=== PATIENT | female | born 1970 | race Caucasian/White ===

== ENCOUNTER → 2017-07-05 11:27 | Outpatient (CLI) | payer BC, SELFPAY | PROVIDERS: Visit Provider Obstetrics & Gynecology | DX: N76.0 Acute vaginitis (principal); R30.0 Dysuria | CPT/HCPCS: 87077; 87086; 87088; 87186 ==

== ENCOUNTER → 2017-08-12 10:44 | Outpatient (CLI) | payer BC, SELFPAY ==
--- NOTE | 2017-08-12 11:16 | BI_ITS ---
MAMMOGRAPHY - BILATERAL SCREENING REASON FOR EXAM: Female, 46 years old. Routine annual screening examination. PERTINENT HISTORY: Non-contributory. TECHNIQUE: Digital bilateral breast tony (3D mammographic acquisition) in the CC and MLO projections. 2-D mediolateral oblique (MLO) and craniocaudad (CC) views of both breasts were obtained. CAD: Full Field Digital Mammography with Computer Added Detection was performed. COMPARISON: Comparison is made with prior study dated August 10, 2016 May 27, 2015. FINDINGS: Breast Composition: The breasts are extremely dense, which lowers the sensitivity of mammography. There are no dominant masses or suspicious calcifications. No other significant abnormalities are identified. There has been no significant change since the prior study. BI/SCREENING MAMM (CAD), BILAT IMPRESSION: Stable bilateral screening mammogram. Yearly follow-up mammogram recommended. (A) ASSESSMENT CATEGORY: BIRADS Category 1: Negative. A letter regarding these results will be sent to the patient by the facility within 30 days. Approximately 10% of breast cancers are not detected by mammography. A normal mammogram should not delay biopsy of a clinically suspicious abnormality. [id number] Electronically Signed: Hao Marti MD at 14:26 EDT Tel [phone], Service support ,
[2017-08-14 10:48] LABS: HPV Reflexed? NOT INDICATED
== END ==
LOC: WOBLAB 10:45 → LABSPEC 10:47
PROVIDERS: Family Provider Family Medicine; PCP Family Medicine; Visit Provider Obstetrics & Gynecology
DX: Z12.31 Encounter for screening mammogram for malignant neoplasm of breast (principal); Z12.4 Encounter for screening for malignant neoplasm of cervix
CPT/HCPCS: 77063; 77067; 88175; G0145

== ENCOUNTER 2017-09-18 08:00 | Outpatient (RCR) | payer BC, SELFPAY ==
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
--- NOTE | 2017-05-23 10:14 | HP.OTREVAL ---
Yossi Ramirez MD, It has been my pleasure to treat HARSH ADAME over the last 6 visits for disp. fx of prox phalanx of left little finger/ dislocation of left MF. Please see the progress note below for an update on the occupational therapy plan of care! Subjective: pt states she is doing ok- still very painful- pt states she does get nauseaded with moving her finger or touching the scar. Objective/Function: left MF. MCP +15/60. PIP-20 /75. DIP 0/45. Left LF. MCP 0/60. PIP 0/70. DIP 0/. left aircraft line assembler 15#. pt demo with limited functional composite fist and decreased left aircraft line assembler strength- pt also demo rotation of left LF radially positioning tip under RF with active ROM- pt would benefit from cont. OTR//L, CHT services for pt to reach her max rehab Plan Frequency: 2x /Week Duration: 2 Months Plan: pt to cont with therapy 1-2x weeks 8 weeks to progress pt to full ROM and return of a functional aircraft line assembler strength for BADLS and IADLS Goals - Goals Goal:: in 12 weeks pt will demo a left aircraft line assembler strength of 35# or greater to increase her ind with BADLs and IADLS by D/C Goal:: once cleared by pt will demo increase in functional digit ROM to form a composite first to manipulate coins ind. type and performance of BADLS and IADLS by D/C Goal:: pt will report pain no greater than 2/10 with us of left hand for BADLS and IADLS by d/c Goal:: Pt will demo the ability to move fingers freely over computer keys with no more than 2 mistakes and no pain by d/c Goal:: pt will demo a reduction in left digit edema by .5 by d/c Goal:: pt will demo understanding of custom orthosis use and care by end of 1st session. pt will demo understanding to return for orthosis adj to increase comfort and wear of orthosis by end of 1st session. Anticipated Interventions Anticipated Interventions: A/AAROM/PROM, Strengthening, Edema Control, Triggerpoint Release, Desensitization, Wound Care, Modalities, Orthoses, Joint Protection/Energy Conservation Please do not hesitate to contact me at [phone] by phone or if you have questions or concerns regarding this new plan of care! Sincerely, Estrella Red, OTR/L, CHT
--- NOTE | 2017-07-05 09:47 | HP.OTREVAL ---
Yossi Ramirez MD, It has been my pleasure to treat HARHS ADAME over the last 6 visits for disp. fx of prox phalanx of left little finger/ dislocation of left MF. Please see the progress note below for an update on the occupational therapy plan of care! Subjective: pt reports she is has had a decrease in her pain and she is using her left arm more for BADLS- pt still has concerns with strength Objective/Function: Pt has made gains with her ROM and her pain has decreased to increase functional use. Pt measurments are. : Left MF PIP ROM prior to -. Left MF PIP ROM - following therapy- left ophthalmology assistant strength 20# right ophthalmology assistant is 60#. Now that pt has progressed with ROM and her pain has decreased with functional tasks therapy would like to initiate more agressive strengthening for pt to return to PLOF. Plan Frequency: 2x /Week Duration: 6 Weeks Plan: OT rec'd 2x week for 6 weeks Goals - Goals Goal:: in 12 weeks pt will demo a left ophthalmology assistant strength of 35# or greater to increase her ind with BADLs and IADLS by D/C Goal:: once cleared by pt will demo increase in functional digit ROM to form a composite first to manipulate coins ind. type and performance of BADLS and IADLS by D/C Goal:: pt will report pain no greater than 2/10 with us of left hand for BADLS and IADLS by d/c Goal:: Pt will demo the ability to move fingers freely over computer keys with no more than 2 mistakes and no pain by d/c Goal:: pt will demo a reduction in left digit edema by .5 by d/c Goal:: pt will demo understanding of custom orthosis use and care by end of 1st session. pt will demo understanding to return for orthosis adj to increase comfort and wear of orthosis by end of 1st session. Anticipated Interventions Anticipated Interventions: A/AAROM/PROM, Strengthening, Edema Control, Triggerpoint Release, Desensitization, Wound Care, Modalities, Orthoses, Joint Protection/Energy Conservation Please do not hesitate to contact me at [phone] by phone or if you have questions or concerns regarding this new plan of care! Sincerely, Estrella Red, OTR/L, CHT
--- NOTE | 2017-08-06 12:51 | OTREVAL_ITS ---
Yossi Ramirez MD, It has been my pleasure to treat HARSH ADAME over the last 5 visits for disp. fx of prox phalanx of left little finger/ dislocation of left MF. Please see the progress note below for an update on the occupational therapy plan of care! Subjective: pt states she is doing better but still would like to see more composite fist- states she has a very difficult time with manipulating coins- and holding objects in her hand. She reports ind. with her HEP Objective/Function: MF PIP -5/80. DIP 0/55. RF PIP 0/85. LF PIP 0/80. pt contines to lack ROM comparied to her uninjured digits-. pt continues to make gains with her ROM- she made a significant improvement with her MF PIP extension - but continues to struggle with composite fist for BADLS- pt would benefit from cont OT services to ensure pts porgess with her ROM and strength Plan Frequency: 1x/Week Duration: 6 Weeks Plan: cont with increase functional ROM Goals - Goals Goal:: in 12 weeks pt will demo a left business communications instructor strength of 35# or greater to increase her ind with BADLs and IADLS by D/C Goal:: once cleared by pt will demo increase in functional digit ROM to form a composite first to manipulate coins ind. type and performance of BADLS and IADLS by D/C Goal:: pt will report pain no greater than 2/10 with us of left hand for BADLS and IADLS by d/c Goal:: Pt will demo the ability to move fingers freely over computer keys with no more than 2 mistakes and no pain by d/c Goal:: pt will demo a reduction in left digit edema by .5 by d/c Goal:: pt will demo understanding of custom orthosis use and care by end of 1st session. pt will demo understanding to return for orthosis adj to increase comfort and wear of orthosis by end of 1st session. Anticipated Interventions Anticipated Interventions: A/AAROM/PROM, Strengthening, Edema Control, Triggerpoint Release, Desensitization, Wound Care, Modalities, Orthoses, Joint Protection/Energy Conservation Please do not hesitate to contact me at [phone] by phone or Fax: if you have questions or concerns regarding this new plan of care! Sincerely, Estrella Red, OTR/L, CHT
--- NOTE | 2017-10-21 08:34 | HP.OT.NRP ---
HP - Discharge Summary - Patient Information HARSH ADAME was seen in my office for initial evaluation on 04/15/17. The following Plan of Care was established for this patient: Initial Frequency: 1x/Week Initial Duration: 6 Weeks Plan: cont with increase functional ROM one more visit - Anticipated Interventions Anticipated Interventions: A/AAROM/PROM, Strengthening, Edema Control, Triggerpoint Release, Desensitization, Wound Care, Modalities, Orthoses, Joint Protection/Energy Conservation This patient was last seen in our office 09/18/17. Pertinent comments regarding their Occupational therapy will appear below: Pt was improving with her ROM and strength- but contined to struggle with end range composite fist- Due to insurance pt is d/c with HEP to cont working with pain free composite fist, PRE and returning pt to PLOF. Pt to return to DR. if no improvements are made. At this point I will be discontinuing this patient from occupational therapy. I would be happy to see this patient again in the future if found appropriate by the physician. Thank you! Estrella Red, OTR/L, CHT
== END 2017-09-18 19:00 | disposition home or self-care (01) ==
LOC: OT 08:00
PROVIDERS: Family Provider Family Medicine; PCP Family Medicine; Visit Provider Specialist
DX: S62.617D Displaced fracture of proximal phalanx of left little finger, subsequent encounter for fracture with routine healing (principal)
CPT/HCPCS: 97110; 97140; 97166; 97530; 97760; 97763

== ENCOUNTER → 2017-11-27 13:41 | Outpatient (CLI) | payer BC, SELFPAY ==
--- NOTE | 2017-11-27 14:05 | SP.MBSS_ITS ---
PRIMARY / SECONDARY DIAGNOSIS: dysphagia (R13.10) REFERRING PHYSICIAN: Dr. Michele Arboleda MD CURRENT DIET: regular textures, thin liquids DENTITION: WFL MENTAL STATUS: WNL RESPIRATORY STATUS: O2 via room air PREVIOUS MODIFIED BARIUM SWALLOW STUDY: none REASON FOR REFERRAL: Patient is a 47 year old female referred for a modified barium swallow (MBS) study to objectively assess the Patients oropharyngeal swallow function under fluoroscopy secondary to the diagnosis of multiple sclerosis. Patient reports diagnosis of multiple sclerosis in 2010, with the Patient recently noting intermittent coughing episodes during PO intake, with a reported exacerbation following her most recent round of Botox injections (3 month intervals) to the right lower extremity. Patient reports recent workup via special forces officer 3 weeks prior was overall unremarkable, was subsequently placed on proton pump inhibitors for suspected gastroesophageal reflux, though reports no therapeutic effect to date. Patient reports intermittent sensations of bolus stasis well above the laryngeal notch, reports dysphagia for both solids and liquids, denies presence of sialorrhea, no change in appetite, no unintentional weight loss, no recent aspiration related pulmonary complications. 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 Upper GI series scheduled for 12/06/2017. MEDICAL HISTORY: Multiple sclerosis, status post sinus surgery / right maxillary sinus stent. STUDY FINDINGS: Patient participated in a Modified Barium Swallow (MBS) study on 11/27/2017. Dr. Marti was the radiologist present for this evaluation. This study was recorded in the lateral view and images were sent to PACs for storage. The following consistencies were presented to this patient for analysis of oropharyngeal swallow function: thin liquids, pudding, and a regular textured, Kelley Doone cookie. Results of the MBS are as follows: PENETRATION / ASPIRATION SCALE (FORTE): 1 = does not enter airway 2 = enters airway/above vocal folds/ejected 3 = enters airway/above vocal folds/not ejected 4 = enters airway/contacts vocal folds/ejected 5 = enters airway/contacts vocal folds/not ejected 6 = enters airway/below vocal folds/ejected 7 = enters airway/below vocal folds/not ejected despite effort 8 = enters airway/below vocal folds/no effort VIDEOFLOROSCOPIC SCALE SCORE (FORTE): Grade I = aspiration of material that has penetrated into the laryngeal vestibule, intact cough reflex Grade II = aspiration < 10 % of the bolus, intact cough reflex Grade III = aspiration of < 10 % of the bolus, reduced cough reflex or aspiration of > 10 % of the bolus, intact cough reflex Grade IV = aspiration of > 10 % of the bolus, reduced cough reflex PENETRATION / ASPIRATION SCALE (SCORE) WITH VIDEOFLOROSCOPIC SCALE SCORE: Thin liquid - 5 mL tsp.: 1 Thin liquids via cup (single sip): 1 Thin liquids via cup (single sip): 1 Thin liquids via cup (single sip): 1 Thin liquids via cup (sequential swallows): 1 Thin liquids via straw (single sip): 1 Thin liquids via straw (single sip): 1 Thin liquids via straw (single sip): 1 Pudding via spoon: 1 Regular textured cookie: 1 Thin liquids via straw (single sip): 1 Thin liquids via straw (single sip): 1 IMPRESSION: DIAGNOSIS: mild oropharyngeal dysphagia (R13.12) ORAL PHASE CHARACTERIZED BY: LABIAL SEAL: no labial escape TONGUE CONTROL DURING BOLUS MANIPULATION: posterior escape of greater than half of bolus BOLUS PREPARATION / MASTICATION: timely and efficient chewing and mashing BOLUS TRANSPORT / LINGUAL MOTION: brisk tongue motion ORAL RESIDUE: trace residue lining oral structures PHARYNGEAL PHASE CHARACTERIZED BY: INITIATION OF PHARYNGEAL SWALLOW: bolus head in pyriforms at first hyoid excursion, with intermittent 1 second pharyngeal swallow onset delay SOFT PALATE ELEVATION: no bolus between soft palate and pharyngeal wall LARYNGEAL ELEVATION: complete superior movement of thyroid cartilage with complete approximation of arytenoids cartilage to epiglottic petiole ANTERIOR HYOID EXCURSION: complete anterior movement EPIGLOTTIC MOVEMENT: complete epiglottic inversion LARYNGEAL VESTIBULE CLOSURE AT HEIGHT OF SWALLOW: complete laryngeal vestibule closure with no air/contrast in laryngeal vestibule PHARYNGEAL STRIPPING WAVE: pharyngeal stripping wave present / complete PHARYNGOESOPHAGEAL SEGMENT OPENING: complete distension and complete duration with no obstruction of flow TONGUE BASE RETRACTION: trace column of contrast between tongue base and posterior pharyngeal wall PHARYNGEAL RESIDUE: intermittent small collection of residue within or on pharyngeal structures ESOPHAGEAL PHASE CHARACTERIZED BY: ESOPHAGEAL BOLUS CLEARANCE IN THE UPRIGHT POSITION: could not view DIET TEXTURE RECOMMENDATIONS: Will recommend a regular textured, thin liquid diet. COMPENSATORY STRATEGIES RECOMMENDED: Reduced bolus volume, seated upright at 90 degrees during PO intake, remain upright for 30-60 minutes post meal (GERD precaution) INTERPRETATION OF RESULTS: Patient presents with mild oropharyngeal dysphagia (R13.12) secondary to the diagnosis of multiple sclerosis. Oral phase marked by intermittent posterior bolus loss, though it is difficult to completely discern between a pharyngeal phase swallow onset delay (more likely) vs. premature spillage. Pharyngeal phase marked by impaired pharyngeal swallow onset timing with mild onset delay ( approximately 1 second in duration) resulting in suboptimal bolus location upon swallow onset; sufficient closure of the airway during deglutition, with noted premature elevation; sufficient pharyngeal motility; sufficient soft palate elevation. Reported sensation of bolus retention above the pharyngeal notch may be attributed to mild delay in pharyngeal swallow onset; no direct impact on swallow integrity, though the Patient is at higher risk of aspiration with increase in pharyngeal swallow dwell time. No aspiration appreciated throughout trials, unable to definitively rule out silent aspiration (not suspected). RECOMMENDATIONS: Would consider a repeat modified barium swallow study if any changes in the swallow pattern are suspected, or at regular intervals to further elucidate any changes in the oropharyngeal swallow function as the disease progresses. Extensive Patient education and counseling provided following the completion of the swallow study spanning a variety of topics in regards to multiple sclerosis , to include not only dysphagia, but also potential cognitive / communication changes that may accompany the diagnosis. The Patient reports rather significant and understandable anxiety in regards to the diagnosis and anticipated progression, and reports having read multiple articles covering cognitive, communication, and swallowing changes that may accompany the disease. The Patient reports intermittent paraphasias that, upon description, are most likely neologistic in nature, and occur in conjunction with fatigue and more busy environments. Suspect this is associated with attention vs. language functioning, though further assessment at the outpatient level either via a licensed speech-language pathologist or a licensed clinical neuropsychologist would likely be of benefit. Patient may further benefit from 1 -2 follow up skilled speech-language intervention targeting continued diet texture management; training and implementation of recommended compensatory strategies; and further Patient and caregiver education regarding dysphagia associated with multiple sclerosis. ADDITIONAL COMMENTS/RECOMMENDATIONS: Results and recommendations were discussed with the Patient immediately following MBS completion, with the Patient verbalizing understanding and agreement with all recommendations and education provided. IMAGE COUNT: [id number] G-CODES: SWALLOWING [id number] Current Status: CI SWALLOWING G8997 Goal Status: CH SWALLOWING G8998 Discharge Status: CI Bao Hull M.A., CCC-BPM SOLUTION ARCHITECT [facility] Speech-Language Pathology Department [email or web address]
== END ==
PROVIDERS: Family Provider Family Medicine; PCP Family Medicine; Visit Provider Otolaryngology
DX: R13.10 Dysphagia, unspecified (principal)
CPT/HCPCS: 74230; 92611

== ENCOUNTER → 2017-12-06 09:12 | Outpatient (CLI) | payer BC, SELFPAY ==
--- NOTE | 2017-12-06 09:14 | RAD_ITS ---
STUDY: X-RAY - ESOPHAGUS (BARIUM SWALLOW) WITH FLUOROSCOPY REASON FOR EXAM: Female, 47 years old. Dysphasia. TECHNIQUE: 38 view(s) of the esophagus were obtained following swallowing of barium. FLUOROSCOPY TIME (if supplied): (0:42) minutes/seconds COMPARISON: None. FINDINGS: There is no demonstrated esophageal foreign body. There is no demonstrated stricture or mucosal abnormality. Normal gastroesophageal junction, without a demonstrated hiatal hernia. The patient ingested a 12 mm tablet of barium without any difficulty. Normal visualized aortic arch and descending thoracic aorta. Normal visualized pulmonary parenchyma. Normal visualized osseous structures of the thorax. RAD/Esophagus Only IMPRESSION: Normal plain film x-ray examination (barium swallow) of the esophagus. Electronically Signed: Hao Marti MD at 8:27 EDT Tel [phone], Service support ,
== END ==
PROVIDERS: Family Provider Family Medicine; PCP Family Medicine; Visit Provider Otolaryngology
DX: R13.10 Dysphagia, unspecified (principal)
CPT/HCPCS: 74220

== ENCOUNTER → 2018-02-15 11:09 | Outpatient (CLI) | payer BC, SELFPAY | PROVIDERS: Visit Provider Otolaryngology | DX: J02.9 Acute pharyngitis, unspecified (principal) | CPT/HCPCS: 87070; 87077; 87186 ==

== ENCOUNTER → 2018-02-26 18:20 | Outpatient (CLI) | payer BC, SELFPAY ==
[2018-02-26 16:21] VITALS: BMI 24.3
[2018-02-26 18:22] LABS: Bacteria 0 SEEN /hpf (None Seen); White Blood Cells 0 SEEN /hpf (0-5)
[2018-02-26 18:37] LABS: Color, Urine Yellow (Yellow); Glucose, Dipstick Normal (Normal); Ketone-Dipstick Negative (Negative); Leukocyte Esterase-Dipstick 25 /ul (Negative); Nitrite-Dipstick Negative (Negative); Occult Blood-Urine 25 /ul (Negative); Protein-Dipstick Negative (Negative); Urine Bilirubin Dipstick Negative (Negative); Urine Clarity Clear (Clear); Urine Urobilinogen 1 mg/dl (Normal)
[2018-02-26 18:42] LABS: Mucous, Urine 1+ /hpf (<or=2+); Red Blood Cells-Urine 0-5 SEEN /hpf (0-5); Squamous Epithelial Cells - UA 0-5 SEEN /hpf (5-10)
== END ==
PROVIDERS: Family Provider Family Medicine; PCP Family Medicine; Referring Provider Nurse Practitioner Family; Visit Provider Nurse Practitioner Family
DX: R30.0 Dysuria (principal)
CPT/HCPCS: 81001; 87086; 87088

== ENCOUNTER → 2018-08-05 | Outpatient (CLI) | payer MEDICAID, SELFPAY ==
[2018-06-18 15:21] VITALS: BMI 24.3
--- NOTE | 2018-08-05 09:47 | BI_ITS ---
MAMMOGRAPHY - BILATERAL SCREENING REASON FOR EXAM: Female, 47 years old. Routine annual screening examination. PERTINENT HISTORY: Non-contributory. TECHNIQUE: Digital bilateral breast tony (3D mammographic acquisition) in the CC and MLO projections. 2-D mediolateral oblique (MLO) and craniocaudad (CC) views of both breasts were obtained. CAD: Full Field Digital Mammography with Computer Added Detection was performed. COMPARISON: Comparison is made with prior study dated August 12, 2017 and August 10, 2016. FINDINGS: Breast Composition: The breasts are extremely dense, which lowers the sensitivity of mammography. There are no dominant masses or suspicious calcifications. Stable small bilateral axillary lymph nodes. No other significant abnormalities are identified. There has been no significant change since the prior study. BI/SCREENING MAMM (CAD), BILAT IMPRESSION: Stable bilateral screening mammogram. Yearly follow-up mammogram recommended. (A) ASSESSMENT CATEGORY: BIRADS Category 2: Benign. A letter regarding these results will be sent to the patient by the facility within 30 days. Approximately 10% of breast cancers are not detected by mammography. A normal mammogram should not delay biopsy of a clinically suspicious abnormality. [id number] Electronically Signed: Hao Marti, at 11:27 EDT , Service support ,
== END | disposition home or self-care (01) ==
LOC: OPBI 09:44
PROVIDERS: Family Provider Family Medicine; PCP Family Medicine; Referring Provider Obstetrics & Gynecology; Visit Provider Obstetrics & Gynecology
DX: Z12.31 Encounter for screening mammogram for malignant neoplasm of breast (principal)
CPT/HCPCS: 77063; 77067

== ENCOUNTER → 2018-08-15 | Outpatient (CLI) | payer MEDICAID, SELFPAY ==
[2018-06-18 15:21] VITALS: BMI 24.3
[2018-08-21 17:16] LABS: HPV Reflexed? NOT INDICATED
== END | disposition home or self-care (01) ==
LOC: LABSPEC 14:11
PROVIDERS: Visit Provider Obstetrics & Gynecology
DX: Z12.4 Encounter for screening for malignant neoplasm of cervix (principal)
CPT/HCPCS: 88175; G0145

== ENCOUNTER 2018-12-02 13:37 | Outpatient (RCR) | payer MEDICAID, SELFPAY ==
[2018-11-18 09:36] VITALS: BMI 24.3
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
--- NOTE | 2019-01-13 11:13 | HP.PTDCNRP_ITS ---
HP - Discharge Summary (1) - Patient Information HARSH ADAME was seen in my office for initial evaluation on 12/02/18. The following Plan of Care was established for this patient: Initial Frequency: 1-2x /Week Initial Duration: 4 Weeks - Anticipated Interventions Patient/Client Instruction: Educate patient on: Condition, Plan of Care For the Purpose of:: To decrease pain, To increase ROM, To improve muscle per formance and motor function, To improve ability to perform ADL's, To increase tolerance to activity/condition/position, To improve ability of physical actions for home/community/work/leisure, To improve gait and locomotor functions, To decrease soft tissue restriction, To increase flexibility/ROM, To reduce risk of recurrence Therapeutic Exercise to Include: Strength training, Postural training, Flexibilty training, Scapular Strength/Stabilization For the Purpose of:: To decrease pain, To increase ROM, To improve muscle performance and motor function, To improve ability to perform ADL's, To increase tolerance to activity/condition/position, To improve ability of physical actions for home/community/work/leisure, To decrease soft tissue restriction, To increase flexibility/ROM This patient was last seen in our office . Pertinent comments regarding their Physical therapy will appear below: Patient seen for PT for Intial Evalution for back pain for HEP. At this point I will be discontinuing this patient from physical therapy. I would be happy to see this patient again in the future if found appropriate by the physician. Thank you! Tello Robertson, PT, Cert MDT, OCS
== END 2018-12-02 19:00 | disposition home or self-care (01) ==
LOC: PT 13:37
PROVIDERS: Family Provider Family Medicine; PCP Family Medicine; Visit Provider Chiropractor
DX: S13.9XXA Sprain of joints and ligaments of unspecified parts of neck, initial encounter (principal); M99.02 Segmental and somatic dysfunction of thoracic region
CPT/HCPCS: 97110; 97162

== ENCOUNTER → 2019-01-21 14:00 | Outpatient (CLI) | payer MEDICAID, SELFPAY ==
[2019-01-21 14:02] VITALS: BMI 26.3
[2019-01-22 11:32] LABS: Mucous, Urine 0 SEEN /hpf (<or=2+); Red Blood Cells-Urine 0 SEEN /hpf (0-5); White Blood Cells 0 SEEN /hpf (0-5)
[2019-01-22 12:10] LABS: Color, Urine Yellow (Yellow); Glucose, Dipstick Normal (Normal); Ketone-Dipstick Negative (Negative); Leukocyte Esterase-Dipstick Negative /ul (Negative); Nitrite-Dipstick Negative (Negative); Occult Blood-Urine 50 /ul (Negative); Protein-Dipstick Negative (Negative); Urine Bilirubin Dipstick Negative (Negative); Urine Clarity Sl. Cloudy (Clear); Urine Urobilinogen Normal (Normal)
[2019-01-22 12:15] LABS: Bacteria RARE /hpf (None Seen); Squamous Epithelial Cells - UA 0-5 SEEN /hpf (5-10)
== END ==
PROVIDERS: Family Provider Family Medicine; PCP Family Medicine; Visit Provider Nurse Practitioner Family
DX: M54.5 Low back pain (principal)
CPT/HCPCS: 81001; 87086

== ENCOUNTER → 2019-03-10 09:30 | Outpatient (CLI) | payer MEDICAID, SELFPAY ==
[2019-03-10 09:12] VITALS: BMI 26.3
[2019-03-10 13:12] LABS: HIV - WCH Non-Reactive (Nonreactive)
[2019-03-10 15:17] LABS: Chlamydia Trachomatis by PCR Negative (Negative); Neisserai gonorrhoeae by PCR Negative (Negative); Probe Check PASS; Sample Adequacy Control PASS; Specimen Processing Control PASS
== END ==
PROVIDERS: Family Provider Family Medicine; PCP Family Medicine; Visit Provider Family Medicine
DX: Z20.2 Contact with and (suspected) exposure to infections with a predominantly sexual mode of transmission (principal)
CPT/HCPCS: 36415; 86703; 87491; 87591

== ENCOUNTER → 2019-05-28 | Outpatient (CLI) | payer MEDICAID, SELFPAY ==
[2019-03-10 09:12] VITALS: BMI 26.3
== END | disposition home or self-care (01) ==
LOC: LABSPEC 15:42
PROVIDERS: PCP Family Medicine; Referring Provider Otolaryngology; Visit Provider Otolaryngology
DX: J32.9 Chronic sinusitis, unspecified (principal)
CPT/HCPCS: 87070; 87205

== ENCOUNTER → 2019-08-10 10:09 | Outpatient (CLI) | payer MEDICAID, SELFPAY ==
[2019-03-10 09:12] VITALS: BMI 26.3
--- NOTE | 2019-08-10 10:10 | BI_ITS ---
MAMMOGRAPHY - BILATERAL SCREENING REASON FOR EXAM: Female, 48 years old. Routine annual screening examination. PERTINENT HISTORY: TECHNIQUE: Digital bilateral breast anca (3D mammographic acquisition) in the CC and MLO projections. 2-D mediolateral oblique (MLO) and craniocaudad (CC) views of both breasts were obtained. CAD: Full Field Digital Mammography with Computer Added Detection was performed. COMPARISON: None. FINDINGS: Breast Composition: The breasts are extremely dense, which lowers the sensitivity of mammography. There are no dominant masses or suspicious calcifications. No other significant abnormalities are identified. BI/SCREEN MAMM (CAD) W/ANAC BILAT IMPRESSION: Stable bilateral screening mammogram. Yearly follow-up mammogram recommended. (A) ASSESSMENT CATEGORY: BIRADS Category 2: Benign. A letter regarding these results will be sent to the patient by the facility within 30 days. Approximately 10% of breast cancers are not detected by mammography. A normal mammogram should not delay biopsy of a clinically suspicious abnormality. [id number] Electronically Signed: Yany Becerra, at 10:43 EDT Tel , Service support ,
== END ==
PROVIDERS: Family Provider Family Medicine; PCP Family Medicine; Referring Provider Family Medicine; Visit Provider Family Medicine
DX: Z12.31 Encounter for screening mammogram for malignant neoplasm of breast (principal)
CPT/HCPCS: 77063; 77067

== ENCOUNTER → 2019-08-18 | Outpatient (CLI) | payer MEDICAID, SELFPAY ==
[2019-03-10 09:12] VITALS: BMI 26.3
[2019-08-20 11:17] LABS: HPV APTIMA, High Risk Negative (Negative)
== END | disposition home or self-care (01) ==
LOC: LABSPEC 12:48
PROVIDERS: PCP Family Medicine; Visit Provider Obstetrics & Gynecology
DX: Z12.4 Encounter for screening for malignant neoplasm of cervix (principal)
CPT/HCPCS: 87624; 88175; G0145

== ENCOUNTER → 2019-09-16 | Outpatient (CLI) | payer MEDICAID, SELFPAY ==
[2019-03-10 09:12] VITALS: BMI 26.3
--- NOTE | 2019-09-16 | EMB_PTH ---
PATIENT: HARSH ADAME LOC: [facility] U#:[id number] AGE/SX: 48/F ROOM: RE09/16/[address]: Dr. Nevin Cornell MD : 1970 BED: DIS: 09/16/2019 SPEC #: [id number] RECD: 09/16/19 13:32 STATUS: SHWETA RESkip #: [id number] XAVIER: 09/16/19 00:[address]: Nevin Campos DEPT: SURGICAL PATHOLOGY RECD BY: Dimitri Rod ENTERED: 09/17/19 07:51 SP TYPE: ENDOM BX/C KATINA DR: Dr. Clayton Omalley, DO Tissues: Endometrium, NOS Procedures: Surgery Specimen Level IV HEADER OPERATION: Endometrial biopsy PRE-OP DIAGNOSIS: Irregular bleeding TISSUE SUBMITTED: Endometrial biopsy MICROSCOPIC DIAGNOSIS Endometrium, biopsy: Weakly proliferative, minimally disordered endometrium. Consistent with exogenous hormonal effect. AM:arnaud 09/18/19 MICROSCOPIC DESCRIPTION Slides are reviewed. GROSS DESCRIPTION Received in fixative is one container labeled with the patient's name and designated EMB. The specimen consists of multiple irregular fragments of jackson soft tissue that in aggregate measure 2.5 x 1 x 0.1 cm. The specimen is totally submitted in one cassette. / SJ:arnaud 09/17/19 TC:5 CPT: 36115
== END | disposition home or self-care (01) ==
LOC: LABSPEC 13:49
PROVIDERS: PCP Family Medicine; Referring Provider Obstetrics & Gynecology; Visit Provider Obstetrics & Gynecology
DX: N92.6 Irregular menstruation, unspecified (principal)
CPT/HCPCS: 88305

== ENCOUNTER → 2020-02-27 | Outpatient (CLI) | payer MEDICAID, SELFPAY ==
[2019-03-10 09:12] VITALS: BMI 26.3
== END | disposition home or self-care (01) ==
LOC: LABSPEC 12:00
PROVIDERS: PCP Family Medicine; Visit Provider Otolaryngology
DX: J32.9 Chronic sinusitis, unspecified (principal)
CPT/HCPCS: 87070; 87205

== ENCOUNTER → 2020-04-01 | Outpatient (CLI) | payer MEDICAID, SELFPAY | END | disposition home or self-care (01) | LOC: LABSPEC 13:49 | PROVIDERS: PCP Family Medicine; Referring Provider Family Medicine; Visit Provider Family Medicine | DX: Z20.822 Contact with and (suspected) exposure to COVID-19 (principal) | CPT/HCPCS: 87635; U0005; U0003 ==

== ENCOUNTER → 2020-05-06 14:50 | Outpatient (CLI) | payer MEDICAID, SELFPAY ==
--- NOTE | 2020-05-06 14:56 | RAD_ITS ---
STUDY: X-RAY CHEST REASON FOR EXAM: Female, 49 years old. pt states diagnosed with COVID last Saturday, c/o SOB, cough, chest pain TECHNIQUE: Frontal and lateral views of the chest. COMPARISON: None. FINDINGS: The lungs are clear and expanded. There is no demonstrated pleural abnormality. Normal size heart. Normal mediastinum and aminata. Normal visualized pulmonary arteries. Normal visualized aortic arch and descending thoracic aorta. Normal visualized thoracic spine. Normal visualized ribs, clavicles, and shoulders. There is no demonstrated abnormality of the visualized soft tissue structures of the upper abdomen. RAD/Chest PA and Lateral IMPRESSION: Normal x-ray examination of the chest. Electronically Signed: Eric Natarajan MD at 16:50 EST , Service support ,
== END ==
PROVIDERS: PCP Family Medicine; Referring Provider Nurse Practitioner Family; Visit Provider Nurse Practitioner Family
DX: U07.1 COVID-19 (principal); R05 Cough
CPT/HCPCS: 71046

== ENCOUNTER → 2020-07-07 15:53 | Outpatient (CLI) | payer MEDICAID, SELFPAY ==
[2020-07-07 16:41] LABS: Absolute Lymphocyte Count 1.38 X10^3/uL (0.83-4.51); Absolute Neutrophil Count 5.3 X10^3/uL (2.0-7.7); Basophil# 0.06 X10^3/uL; Basophil% 0.8 % (0-1); Eosinophil# 0.26 X10^3/uL; Eosinophils% 3.4 % (0-5); Hematocrit 39.7 % (37-47); Hemoglobin 12.9 g/dL (12.0-15.0); Lymphocyte # 1.38 X10^3/ul (0.83-4.51); Lymphocyte % 18.2 % (19-41); Mean Corp Hgb Conc 32.5 g/dL (32-36); Mean Corpuscular Hgb 30.9 pg (27.0-32.0); Mean Platelet Vol. 9.9 fl (6.2-12.0); Monocyte# 0.54 X10^3/uL; Monocyte% 7.1 % (0-10); NRBC Flagged by Analyzer 0 % (0-5); Neutrophil # 5.33 X10^3/uL (2.7-7.7); Neutrophil % 70.1 % (47-70); Platelet Count 349 K/mm3 (150-450); RBC Distribution Width CV 13.2 % (11.6-14.6); RBC Distribution Width SD 46.5 fl (35.1-43.9); Red Blood Count 4.18 M/mm3 (4.2-5.4); White Blood Count 7.6 K/mm3 (4.4-11.0)
[2020-07-07 16:49] LABS: Erythrocyte Sedimentation Rate < 1 mm/hr (0-30)
[2020-07-07 17:05] LABS: ALB/GLOB Ratio 1.2 RATIO (0.9-2.4); AST(SGOT) 12 U/L (15-37); Alanine Aminotransfer ALT/SGPT 22 U/L (13-56); Albumin, Serum 3.9 g/dL (3.2-5.0); Alkaline Phosphatase 72 U/L (45-117); Anion Gap 2 (5-15); BUN 12 mg/dL (7-18); BUN/Creat Ratio 16.7 RATIO (10-20); Calcium,Total 9.1 mg/dL (8.5-10.1); Chloride 102 mmol/L (98-107); Creatinine, Serum 0.72 mg/dL (0.55-1.02); EST Glomerular Filtration Rate 93 mL/min (>60); Est Glom Filt Rate - Afr Amer 112 mL/min (>60); Globulin 3.3 g/dL (2.2-4.2); Glucose 98 mg/dL (74-106); Potassium 3.8 mmol/L (3.5-5.1); Protein, Total 7.2 g/dL (6.4-8.2); Sodium Level 136 mmol/L (136-145)
== END ==
PROVIDERS: PCP Family Medicine; Referring Provider Physician Assistant; Visit Provider Physician Assistant
DX: R05 Cough (principal); B94.8 Sequelae of other specified infectious and parasitic diseases; R06.02 Shortness of breath; R07.9 Chest pain, unspecified
CPT/HCPCS: 36415; 80053; 85025; 85652

== ENCOUNTER → 2020-11-25 14:55 | Outpatient (CLI) | payer MEDICAID, SELFPAY ==
--- NOTE | 2020-11-25 15:40 | RAD_ITS ---
STUDY: X-RAY CHEST REASON FOR EXAM: Female, 50 years old. chest pain TECHNIQUE: Frontal and lateral views of the chest. COMPARISON: 07/08/2020. FINDINGS: The lungs are clear and expanded. There is no demonstrated pleural abnormality. Normal size heart. Normal mediastinum and aminata. Normal visualized pulmonary arteries. Normal visualized aortic arch and descending thoracic aorta. Normal visualized thoracic spine. Normal visualized ribs, clavicles, and shoulders. There is no demonstrated abnormality of the visualized soft tissue structures of the upper abdomen. RAD/Chest PA and Lateral IMPRESSION: Normal x-ray examination of the chest. Electronically Signed: Eric Natarajan MD at 19:59 EDT , Service support ,
[2020-11-25 16:28] LABS: Absolute Lymphocyte Count 0.86 X10^3/uL (0.83-4.51); Absolute Neutrophil Count 2.7 X10^3/uL (2.0-7.7); Basophil# 0.03 X10^3/uL; Basophil% 0.7 % (0-1); Eosinophil# 0.28 X10^3/uL; Eosinophils% 6.7 % (0-5); Hematocrit 39.2 % (37-47); Hemoglobin 13.1 g/dL (12.0-15.0); Lymphocyte # 0.86 X10^3/ul (0.83-4.51); Lymphocyte % 20.7 % (19-41); Mean Corp Hgb Conc 33.4 g/dL (32-36); Mean Corpuscular Hgb 31.6 pg (27.0-32.0); Mean Corpuscular Volume 94.7 fL (81-99); Mean Platelet Vol. 10.2 fl (6.2-12.0); Monocyte# 0.26 X10^3/uL; Monocyte% 6.3 % (0-10); NRBC Flagged by Analyzer 0 % (0-5); Neutrophil % 65.1 % (47-70); Platelet Count 348 K/mm3 (150-450); RBC Distribution Width CV 13.1 % (11.6-14.6); RBC Distribution Width SD 45.3 fl (35.1-43.9); Red Blood Count 4.14 M/mm3 (4.2-5.4); White Blood Count 4.2 K/mm3 (4.4-11.0)
[2020-11-25 16:33] LABS: Erythrocyte Sedimentation Rate < 1 mm/hr (0-30)
[2020-11-25 16:36] LABS: D-Dimer Quantitative (DVT/PE) 0.37 FEU/ug/m (0.27-0.49)
[2020-11-25 16:48] LABS: ALB/GLOB Ratio 1.1 RATIO (0.9-2.4); AST(SGOT) 12 U/L (15-37); Alanine Aminotransfer ALT/SGPT 21 U/L (13-56); Albumin, Serum 3.6 g/dL (3.2-5.0); Alkaline Phosphatase 60 U/L (45-117); Anion Gap 3 (5-15); BUN 7 mg/dL (7-18); BUN/Creat Ratio 10.8 RATIO (10-20); CRP 5.15 mg/L (0.0-3.0); Calcium,Total 8.5 mg/dL (8.5-10.1); Chloride 107 mmol/L (98-107); Creatinine, Serum 0.65 mg/dL (0.55-1.02); EST Glomerular Filtration Rate 103 mL/min (>60); Est Glom Filt Rate - Afr Amer 125 mL/min (>60); Globulin 3.2 g/dL (2.2-4.2); Glucose 91 mg/dL (74-106); Potassium 3.7 mmol/L (3.5-5.1); Protein, Total 6.8 g/dL (6.4-8.2); Sodium Level 139 mmol/L (136-145); Thyroid Stim Hormone (TSH) 1.66 uIU/mL (0.358-3.74)
== END ==
PROVIDERS: PCP Family Medicine; Referring Provider Physician Assistant; Visit Provider Physician Assistant
DX: R07.9 Chest pain, unspecified (principal); B94.8 Sequelae of other specified infectious and parasitic diseases; R53.83 Other fatigue
CPT/HCPCS: 36415; 71046; 80053; 84443; 85025; 85379; 85652; 86140

== ENCOUNTER → 2020-12-01 08:35 | Outpatient (CLI) | payer MEDICAID, SELFPAY ==
--- NOTE | 2020-12-01 08:37 | EKG12_ITS ---
Test Reason : CP/COVID Blood Pressure : / mmHG Vent. Rate : 080 BPM Atrial Rate : 080 BPM P-R Int : 122 ms QRS Dur : 076 ms QT Int : 356 ms P-R-T Axes : 061 053 -58 degrees QTc Int : 410 ms Normal sinus rhythm T wave abnormality, consider inferior ischemia Abnormal ECG Confirmed by MIKE HAMPTON, BETH ([id number]), editor newspaper RAYMUNDO LOPEZ ([id number]) on 12/05/2020 12:59:11 PM Referred By: Sandy Garcia Confirmed By:BETH MCKEON MD
== END ==
PROVIDERS: PCP Family Medicine; Referring Provider Physician Assistant; Visit Provider Physician Assistant
DX: R07.9 Chest pain, unspecified (principal); B94.8 Sequelae of other specified infectious and parasitic diseases; R53.83 Other fatigue
CPT/HCPCS: 93005

== ENCOUNTER → 2020-12-14 11:29 | Outpatient (CLI) | payer MEDICAID, SELFPAY ==
--- NOTE | 2020-12-14 18:21 | STRESSREP ---
Stress Test Report Exercise test. 50-year-old lady with a history of chest pain. Stress protocol: Resting EKG demonstrates normal sinus rhythm with a rate of 73 bpm normal intervals are noted T wave inversions noted in lead III and aVF. The patient exercised according to regular Ghanshyam protocol for total duration of 4 minutes and 40 seconds the maximum heart rate attained was 144 bpm which was 83% of maximum predicted heart rate the maximum workload was 7 metabolic equivalents. At rest the ST changes noted above were present and at peak exercise there was additional half a millimeter of downsloping ST depression noted in the inferior lateral leads. The above is not diagnostic of ischemia. The test was terminated due to dyspnea. No chest pain was noted. The peak blood pressure is 142/86 mmHg. No arrhythmias were noted. Conclusion: Stress test with no definitive EKG criteria for ischemia at a moderate workload. Moderate functional aerobic impairment. Ischemia cannot be completely excluded due to the absence of imaging and baseline EKG abnormalities.
== END ==
PROVIDERS: PCP Family Medicine; Referring Provider Physician Assistant; Visit Provider Physician Assistant
DX: R07.9 Chest pain, unspecified (principal); R94.31 Abnormal electrocardiogram [ECG] [EKG]
CPT/HCPCS: 93017

== ENCOUNTER → 2021-01-11 | Outpatient (CLI) | payer MEDICAID, SELFPAY | END | disposition home or self-care (01) | LOC: LABSPEC 10:39 | PROVIDERS: PCP Family Medicine; Visit Provider Obstetrics & Gynecology | DX: N39.0 Urinary tract infection, site not specified (principal) | CPT/HCPCS: 87086; 87088 ==

== ENCOUNTER → 2021-01-26 17:20 | Outpatient (CLI) | payer MEDICAID, SELFPAY ==
--- NOTE | 2021-01-26 15:57 | BI_ITS ---
MAMMOGRAPHY - BILATERAL SCREENING REASON FOR EXAM: Female, 50 years old. Routine annual screening examination. PERTINENT HISTORY: Non-contributory. TECHNIQUE: Digital bilateral breast anca (3D mammographic acquisition) in the CC and MLO projections. 2-D mediolateral oblique (MLO) and craniocaudad (CC) views of both breasts were obtained. CAD: Full Field Digital Mammography with Computer Added Detection was performed. COMPARISON: Comparison is made with prior examination dated 08/10/2019 and 08/05/2018. FINDINGS: Breast Composition: The breasts are extremely dense, which lowers the sensitivity of mammography. There are no dominant masses or suspicious calcifications. No other significant abnormalities are identified. There has been no significant change since the prior study. BI/SCRN MAMM (CAD)W/ANCA BILAT IMPRESSION: Stable bilateral screening mammogram. Yearly follow-up mammogram recommended. (A) ASSESSMENT CATEGORY: BIRADS Category 1: Negative. A letter regarding these results will be sent to the patient by the facility within 30 days. Approximately 10% of breast cancers are not detected by mammography. A normal mammogram should not delay biopsy of a clinically suspicious abnormality. [id number] Electronically Signed: Hao Marti MD at 8:37 EDT , Service support ,
== END ==
PROVIDERS: PCP Family Medicine; Referring Provider Obstetrics & Gynecology; Visit Provider Obstetrics & Gynecology
DX: Z12.31 Encounter for screening mammogram for malignant neoplasm of breast (principal)
CPT/HCPCS: 77063; 77067

== ENCOUNTER 2022-02-12 15:48 | Outpatient (CLI) | payer MEDICAID, SELFPAY ==
--- NOTE | 2022-02-12 15:52 | BI_ITS ---
MAMMOGRAPHY - BILATERAL SCREENING REASON FOR EXAM: Female, 51 years old. Routine annual screening examination. PERTINENT HISTORY: Non-contributory. TECHNIQUE: Digital bilateral breast anca (3D mammographic acquisition) in the CC and MLO projections. 2-D mediolateral oblique (MLO) and craniocaudad (CC) views of both breasts were obtained. CAD: Full Field Digital Mammography with Computer Added Detection was performed. COMPARISON: 01/26/2021, 08/10/2019. FINDINGS: Breast Composition: The breasts are extremely dense, which lowers the sensitivity of mammography. There are no dominant masses or suspicious calcifications. No other significant abnormalities are identified. There has been no significant change since the prior study. BI/SCRN MAMM (CAD)W/ANCA BILAT IMPRESSION: Stable bilateral screening mammogram. Yearly follow-up mammogram recommended. (A) ASSESSMENT CATEGORY: BIRADS Category 1: Negative. A letter regarding these results will be sent to the patient by the facility within 30 days. Approximately 10% of breast cancers are not detected by mammography. A normal mammogram should not delay biopsy of a clinically suspicious abnormality. Electronically Signed: Viktor Anna, at 16:22 EST ,
== END 2022-02-12 23:59 | disposition home or self-care (01) ==
LOC: OPBI 15:50
PROVIDERS: PCP Family Medicine; Referring Provider Nurse Practitioner Women's Health; Visit Provider Nurse Practitioner Women's Health
DX: Z12.31 Encounter for screening mammogram for malignant neoplasm of breast (principal)
CPT/HCPCS: 77063; 77067

== ENCOUNTER 2022-02-13 15:09 | Outpatient (CLI) | payer MEDICAID, SELFPAY ==
--- NOTE | 2022-02-13 15:00 | EMB_PTH ---
PATIENT: HARSH ADAME LOC: [facility] U#:[id number] AGE/SX: 51/F ROOM: RE02/13/[address]: TOSHA Buchanan : 1970 BED: DIS: 02/13/2022 SPEC #: [id number] RECD: 02/13/22 17:26 STATUS: SHWETA MARCO #: [id number] XAVIER: 02/13/22 15:[address]: Lianne Malcolm NP DEPT: SURGICAL PATHOLOGY RECD BY: Danae Matias ENTERED: 02/14/22 08:49 SP TYPE: ENDOM BX/C KATINA DR: Dr. Clayton Omalley, DO Tissues: Endometrium, NOS Procedures: Surgery Specimen Level IV HEADER OPERATION: Endometrial biopsy PRE-OP DIAGNOSIS: Abnormal uterine bleeding TISSUE SUBMITTED: Endometrial tissue MICROSCOPIC DIAGNOSIS Endometrial biopsy: Weakly proliferative endometrium with focal area of minimally disordered proliferative endometrium. See comment. NATACHA:arnaud 02/16/2022 COMMENT Please make reference to previous specimen ([id number]) endometrium, biopsy with diagnosis of ?weakly proliferative endometrium, minimally disordered endometrium.? MICROSCOPIC DESCRIPTION Slides are reviewed. GROSS DESCRIPTION Received is one container labeled with the patient's name and not further designated. The specimen consists of multiple irregular fragments of pink soft tissue mixed with mucoid tissue that in aggregate measure 2.5 x 2 x 0.2 cm. The specimen is totally submitted in one cassette. / SJ:arnaud 02/14/2022 TC:5 CPT: [id number]
[2022-02-13 15:38] LABS: Absolute Lymphocyte Count 1.02 X10^3/uL (0.83-4.51); Absolute Neutrophil Count 2.6 X10^3/uL (2.0-7.7); Basophil# 0.03 X10^3/uL; Basophil% 0.7 % (0-1); Eosinophil# 0.18 X10^3/uL; Eosinophils% 4.2 % (0-5); Hematocrit 35.6 % (37-47); Hemoglobin 12.4 g/dL (12.0-15.0); Lymphocyte # 1.02 X10^3/ul (0.83-4.51); Lymphocyte % 23.7 % (19-41); Mean Corp Hgb Conc 34.8 g/dL (32-36); Mean Corpuscular Hgb 32.3 pg (27.0-32.0); Mean Corpuscular Volume 92.7 fL (81-99); Mean Platelet Vol. 9.8 fl (6.2-12.0); Monocyte# 0.44 X10^3/uL; Monocyte% 10.2 % (0-10); NRBC Flagged by Analyzer 0 % (0-5); Neutrophil # 2.62 X10^3/uL (2.7-7.7); Platelet Count 291 K/mm3 (150-450); RBC Distribution Width CV 13.4 % (11.6-14.6); RBC Distribution Width SD 45.3 fl (35.1-43.9); Red Blood Count 3.84 M/mm3 (4.2-5.4); White Blood Count 4.3 K/mm3 (4.4-11.0)
[2022-02-13 16:16] LABS: Thyroid Stim Hormone (TSH) 1.81 uIU/mL (0.358-3.74)
== END 2022-02-13 23:59 | disposition home or self-care (01) ==
PROVIDERS: PCP Family Medicine; Visit Provider Nurse Practitioner Women's Health
DX: Z13.29 Encounter for screening for other suspected endocrine disorder (principal); N93.9 Abnormal uterine and vaginal bleeding, unspecified; N80.9 Endometriosis, unspecified
CPT/HCPCS: 36415; 84443; 85025; 88305

== ENCOUNTER 2022-02-22 18:42 | Outpatient (CLI) | payer MEDICAID, SELFPAY ==
--- NOTE | 2022-02-22 18:45 | US_ITS ---
STUDY: ULTRASOUND OF THE FEMALE PELVIS - COMPLETE REASON FOR EXAM: Female, 51 years old. AUB LMP: TECHNIQUE: Transabdominal and transvaginal TECHNICAL QUALITY: Adequate. COMPARISON: None. FINDINGS: The uterus is anteverted and is in a midline position. The uterus measures 8.5 x 5.3 x 4.4 cm. Normal uterine cervix. The endometrium measures 14 mm in thickness, and is hyperechoic. There is no demonstrated endometrial mass. Endometrium is heterogeneous in appearance. Small fibroid measuring 9 x 9 x 5 mm. I.U.D. - The patient does not have an I.U.D. The right ovary is visualized. The right ovary measures 2.4 x 2 x 1.4 cm. Small cyst measuring 1.3 x 1.4 x 0.8 cm There is no visualized right adnexal mass or complex lesion. There is normal arterial and normal venous vascularity. The left ovary is visualized. The left ovary measures 2.7 x 2.1 x 1.6 cm cm. There is no left ovarian cyst or ovarian mass. There is no visualized left adnexal mass or complex lesion. There is normal arterial and normal venous vascularity. There is no fluid in the cul-de-sac. The pre void volume of the bladder was 30.5 ml. US/Pelvic (Non ) IMPRESSION: Heterogeneous appearing myometrium with small focal intrauterine fibroid. Small right ovarian cyst measuring 1.3 x 1.4 x 0.8 cm Diffuse thickening of the endometrial lining of uncertain clinical significance. Possibility of endometrial hyperplasia or neoplasia may be considered and excluded under appropriate clinical circumstances. Electronically Signed: Trenton Oleary MD at 19:30 EST ,
== END 2022-02-22 23:59 | disposition home or self-care (01) ==
LOC: US 18:43
PROVIDERS: PCP Family Medicine; Visit Provider Nurse Practitioner Women's Health
DX: N93.9 Abnormal uterine and vaginal bleeding, unspecified (principal); N83.201 Unspecified ovarian cyst, right side; R93.89 Abnormal findings on diagnostic imaging of other specified body structures
CPT/HCPCS: 76830; 76856

== ENCOUNTER → 2022-06-27 | Outpatient (CLI) | payer MEDICAID, SELFPAY ==
[2022-06-27 18:06] LABS: Bacteria 0 SEEN /hpf (None Seen); Mucous, Urine 0 SEEN /hpf (<or=2+); White Blood Cells 0 SEEN /hpf (0-5)
[2022-06-27 18:20] LABS: Color, Urine Yellow (Yellow); Glucose, Dipstick Normal (Normal); Ketone-Dipstick 15 mg/dl (Negative); Leukocyte Esterase-Dipstick 100 /ul (Negative); Nitrite-Dipstick Negative (Negative); Occult Blood-Urine 50 /ul (Negative); Protein-Dipstick Negative (Negative); Urine Bilirubin Dipstick Negative (Negative); Urine Clarity Clear (Clear); Urine Urobilinogen Normal (Normal)
[2022-06-27 18:44] LABS: Red Blood Cells-Urine 0-5 SEEN /hpf (0-5); Squamous Epithelial Cells - UA 0-5 SEEN /hpf (5-10)
== END | disposition home or self-care (01) ==
PROVIDERS: PCP Family Medicine; Visit Provider Physician Assistant
DX: R35.0 Frequency of micturition (principal)
CPT/HCPCS: 81001; 87077; 87086; 87088; 87186

== ENCOUNTER → 2023-02-19 | Outpatient (CLI) | payer MEDICAID, SELFPAY ==
--- NOTE | 2023-02-19 15:08 | BI_ITS ---
MAMMOGRAPHY - BILATERAL SCREENING REASON FOR EXAM: Female, 52 years old. Routine annual screening examination. PERTINENT HISTORY: Non-contributory. TECHNIQUE: Digital bilateral breast anca (3D mammographic acquisition) in the CC and MLO projections. 2-D mediolateral oblique (MLO) and craniocaudad (CC) views of both breasts were obtained. CAD: Full Field Digital Mammography with Computer Added Detection was performed. COMPARISON: Comparison is made with prior study dated February 12, 2022 and January 26, 2021. FINDINGS: Breast Composition: The breasts are extremely dense, which lowers the sensitivity of mammography. There are no dominant masses or suspicious calcifications. No other significant abnormalities are identified. There has been no significant change since the prior study. BI/SCRN MAMM (CAD)W/ANCA BILAT IMPRESSION: Stable bilateral screening mammogram. Yearly follow-up mammogram recommended. (A) ASSESSMENT CATEGORY: BIRADS Category 1: Negative. A letter regarding these results will be sent to the patient by the facility within 30 days. Approximately 10% of breast cancers are not detected by mammography. A normal mammogram should not delay biopsy of a clinically suspicious abnormality. [id number] Electronically Signed: Hao Marti MD at 8:50 EST ,
== END | disposition home or self-care (01) ==
LOC: OPBI 15:06
PROVIDERS: PCP Family Medicine; Referring Provider Obstetrics & Gynecology; Visit Provider Obstetrics & Gynecology
DX: Z12.31 Encounter for screening mammogram for malignant neoplasm of breast (principal)
CPT/HCPCS: 77063; 77067

== ENCOUNTER → 2023-03-11 | Outpatient (CLI) | payer MEDICAID, SELFPAY | END | disposition home or self-care (01) | LOC: LABSPEC 16:39 | PROVIDERS: PCP Family Medicine; Referring Provider Obstetrics & Gynecology; Visit Provider Obstetrics & Gynecology | DX: R30.0 Dysuria (principal) | CPT/HCPCS: 87086; 87088; 87186 ==

== ENCOUNTER → 2023-03-21 | Outpatient (CLI) | payer MEDICAID, SELFPAY ==
--- OUTSIDE RECORDS SUMMARY | 2023-03-21 12:02 | XMS RPT_ITS | CCD ---
Author Name Unknown Address [id number] [place] [address] Organization [facility] Care Team Providers Care Nuclear Control Operator Name Role Phone RIDER, KARLEY Baldwin Unavailable Unavailable BROWN, FELICIA Unavailable Unavailable Brown DO, Felicia R Primary Care Provider Oscar Wilcox MD Unavailable Brown DO, Felicia R Primary Care Provider Oscar Wilcox MD Unavailable Brown DO, Felicia R Primary Care Provider Oscar Wilcox MD Unavailable Brown DO, Felicia R Primary Care Provider Brown DO, Felicia R Primary Care Provider Oscar Wilcox MD Unavailable Oscar Wilcox MD Unavailable BEN FARR Referring Unavailable BROWN, FELICIA R Primary Care Unavailable BROWN, FELICIA R Primary Care Unavailable ADRIANNA CAN Attending Unavailable BEN FARR M Referring Unavailable BEN FARR M Attending Unavailable BROWN, FELICIA R Primary Care Unavailable NILDA STAFFORD Referring Unavailable BROWN, FELICIA R Primary Care Unavailable SULEMA, BEN M Referring Unavailable BROWN, FELICIA R Primary Care Unavailable SULEMA, BEN M Referring Unavailable BROWN, FELICIA R Primary Care Unavailable CORRIE FARRUNA M Referring Unavailable SULEMACORRIEBEN M Attending Unavailable BROWN, FELICIA R Primary Care Unavailable BROWN, FELICIA R Primary Care Unavailable ANNA MELGOZA Attending Unavailabl e Allergies Allergy Classification Reported Allergen(s) Allergy Type Date of Onset Reaction(s) Facility (20 sources) Clarithromycin; Translations: [CLARITHROMYCIN] Drug Allergy 10-29-2016 Hives, Swelling, Other: See Comments [facility] (20 sources) meloxicam; Translations: [MELOXICAM] Drug Allergy 12-19-2020 Diarrhea, Vomiting [facility] Work Phone: (20 sources) Penicillin V; Translations: [PENICILLIN V] Drug Allergy 09-28-2019 Mental Status Change, Other: See Comments [facility] (11 sources) Penicillins; Translations: [PENICILLINS] Drug Allergy 05-10-2010 Rash [facility] (20 sources) traMADol; Translations: [TRAMADOL HCL] Drug Allergy 05-10-2010 Mental Status Change [facility] (20 sources) Penicillins Drug Allergy 05-10-2010 Rash [facility] Medications Current Medications Medication Drug Class(es) Dates Sig (Normalized) Sig (Original) armodafinil 150 mg oral tablet (16 sources) Start: 08-07-2022 End: 05-29-2023 take 1 tablet by mouth once daily armodafinil (NUVIGIL) 150 mg tab Indications: Multiple sclerosis (HCC) , Malaise and fatigue Take 1 tablet by mouth once daily for 180 days. 30 tablet 5 11/30/2022 05/29/2023 Active Completed/Discontinued Medications Medication Drug Class(es) Dates Sig (Normalized) Sig (Original) Aspirin (20 sources) Platelet Aggregation Inhibitor, Nonsteroidal Anti-inflammatory Drug aspirin (ASPIR-81 ORAL) Take by mouth. 0 Active Problems Active Problems Problem Classification Problem Date Documented Date Episodic/Chronic Anxiety disorders (1 source) Anxiety; Translations: [Anxiety disorder, unspecified] Chronic Blindness and vision defects (2 sources) Bilateral regular astigmatism; Translations: [Regular astigmatism, bilateral] Episodic Mood disorders (2 sources) Depressive disorder; Translations: [Depression, unspecified depression type] Chronic Multiple sclerosis (20 sources) Multiple sclerosis; Translations: [Multiple sclerosis] Onset: 11-16-2010 11-16-2010 Chronic Other aftercare (20 sources) Patient encounter status; Translations: [Encounter for therapeutic drug level monitoring] Episodic Other eye disorders (1 source) Tear film insufficiency; Translations: [Dry eye syndrome of bilateral lacrimal glands] Episodic Other infections; including parasitic (20 sources) Late effects of other and unspecified infectious and parasitic diseases; Translations: [COVID-19 long hauler] Onset: 04-17-2021 04-17-2021 Chronic Other lower respiratory disease (3 sources) Dyspnea; Translations: [Shortness of breath] Episodic Other nervous system disorders (1 source) Inattention; Translations: [Attention and concentration deficit] Chronic Other nervous system disorders (1 source) Demyelinating disease of central nervous system; Translations: [Demyelinating disease of central nervous system, unspecified] 11-30-2022 Chronic Other nervous system disorders (1 source) Other symptoms and signs involving cognitive functions and awareness; Translations: [Other signs and symptoms involving cognition] Episodic Residual codes; unclassified (1 source) Hypersomnia; Translations: [Hypersomnia, unspecified] Chronic Past or Other Problems Problem Classification Problem Date Documented Date Episodic/Chronic Malaise and fatigue (6 sources) Fatigue; Translations: [Other fatigue] Onset: 07-23-2022 Episodic Other aftercare (1 source) Encounter for therapeutic drug level monitoring; Translations: [Medication monitoring encounter] Onset: 05-24-2022 Episodic Other connective tissue disease (20 sources) Cramp; Translations: [Cramp and spasm] Onset: 01-03-2015 01-03-2015 Episodic Other lower respiratory disease (20 sources) Abnormal breathing; Translations: [Unspecified abnormalities of breathing] Onset: 05-18-2021 Episodic Results Test Name Value Interpretation Reference Range Facil ity Vital Signs Date Time Vital Sign Value Performing Clinician Hong mercado 05-24-2022 14:00-0500 Body height 172.7 cm Ben Sulema Mobicow Work Phone: [facility] 05-24-2022 14:00-0500 Body weight 71.67 kg Ben Sulema PA-C Work Phone: [facility] 05-24-2022 14:00-0500 Diastolic blood pressure 80 mm[Hg] Ben Sulema PA-C Work Phone: [facility] 05-24-2022 14:00-0500 Heart rate 71 /min Ben Sulema PA-C Work Phone: [facility] 05-24-2022 14:00-0500 Systolic blood pressure 116 mm[Hg] Ben Sulema PA-C Work Phone: [facility] 11-24-2021 13:10-0400 Body height 172.7 cm Ben Sulema PA-C Work Phone: [facility] 11-24-2021 13:10-0400 Body weight 77.56 kg Ben Sulema PA-C Work Phone: [facility] 11-24-2021 13:10-0400 Diastolic blood pressure 66 mm[Hg] Ben Sulema PA-C Work Phone: [facility] 11-24-2021 13:10-0400 Heart rate 85 /min Ben Sulema PA-C Work Phone: [facility] 11-24-2021 13:10-0400 Systolic blood pressure 118 mm[Hg] Ben Sulema PA-C Work Phone: [facility] Encounters Encounter Date Encounter Type Care Provider Facility Start: 03-12-2023 End: 03-12-2023 ambulatory FELICIA Pang [facility] Facility:[facility] Start: 02-28-2023 Specialty Pharmacy Angela Baker [facility] Specialty Pharmacy Procedures Date Procedure Procedure Detail Performing Clinician Start: 08-14-2022 Follow-up visit Follow Up MARILEE MELGOZA Start: 05-24-2022 BRAIN & CERVICAL SPI NE MRI DISCRETE DATA [facility] Provider Start: 05-24-2022 Mri brain brain stem w/o w/contrast material Ben Farr PA-C Work Phone: Start: 11-24-2021 Adult depression screening assessment Ben Farr PA-C Work Phone: Start: 09-10-2021 Adult depression screening assessment Ben Farr PA-C Work Phone: Start: 07-31-2021 Adult depression screening assessment Rafal Pandey PhD, [facility] [employer] MACHINE OPERATOR Work Phone: Start: 06-28-2021 Adult depression screening assessment Rafal Pandey PhD, [facility]ACHINE OPERATOR Work Phone: Start: 05-21-2021 Adult depression screening assessment Rafal Pandey PhD, [facility] Work Phone: Plan of Treatment Date Care Activity Detail Author Start: 12-11-2025 Diabetes Screening Diabetes Screenjasmin g [facility] Start: 05-24-2025 DIABETES SCREEN DIABETES SCREEN [facility] Start: 05-24-2025 Diabetes Screening Diabetes Screenin g [facility] Start: 11-24-2024 DIABETES SCREEN DIABETES SCREEN [facility] Start: 05-26-2024 DIABETES SCREEN DIABETES SCREEN [facility] Start: 12-03-2022 Urine microalbumin profile [facility] Start: 11-30-2022 End: 01-30-2023 CBC W Auto Differential panel - Blood CBC + DIFF Lab Routine Multiple sclerosis (HCC) Medication monitoring encounter Expected: 11/30/2022, Expires: 01/30/2023 [facility] Work Phone: Immunizations Immunization Date Immunization Notes Care Provider Suha nelson 01-26-2020 influenza virus vaccine, unspecified formulation Anglea Baker [facility] 01-20-2018 influenza, injectabl e, quadrivalent, preservative free Rafal Pandey PhD, [facility] Work Phone: [facility] 01-30-2016 influenza, injectabl e, quadrivalent, preservative free Rafal Pandey PhD, [facility] Work Phone: [facility] 02-09-2014 influenza, live, intranasal, quadrivalent Rafal Pandey PhD, [facility] Work Phone: [facility] 12-03-2012 influenza, injectabl e, quadrivalent, preservative free Rafal Pandey PhD, [facility] Work Phone: [facility] 12-03-2012 tetanus toxoid, reduced diphtheria toxoid, and acellular pertussis vaccine, adsorbed Rafal Pandey PhD, [facility] Work Phone: [facility] 12-31-2011 influenza virus vaccine, live, attenuated, for intranasal use Rafal Pandey PhD, [facility] Work Phone: [facility] Work Phone: 12-30-2010 influenza virus vaccine, live, attenuated, for intranasal use Rafal Pandey PhD [facility] Work Phone: [facility] 12-09-2007 influenza virus vaccine, live, attenuated, for intranasal use Rafal Pandey PhD [facility] Work Phone: [facility] Work Phone: 02-01-2007 influenza virus vaccine, unspecified formulation Rafal Pandey PhD [facility] Work Phone: [facility] Work Phone: 02-04-2006 influenza virus vaccine, unspecified formulation Rafal Pandey PhD [facility] Work Phone: [facility] Work Phone: Payers Date Payer Category Payer Medicaid [id number] 2018 Medicaid [id number]. [id number] 2018 Medicaid [id number] 2017 Unknown [id number] Social History Date Type Detail Facility Start: 05-10-2010 End: 11-24-2021 Tobacco smoking status INIS Never smoked tobacco [facility] Work Phone: Start: 05-10-2010 End: 11-24-2021 Tobacco use and exposure Smokeless tobacco non-user [facility] Work Phone: Start: 05-19-2021 End: 08-14-2022 Alcohol intake Current drinker of alcohol (finding) [facility] Start: 05-10-2010 History SDOH Alcohol Comment 1 time a week [facility] Start: 1970 Sex Assigned At Female C [facility] Work Phone: Start: 06-05-2021 End: 02-20-2022 Exposure to SARS-CoV-2 (event) Not sure [facility] Start: 08-14-2022 End: 11-27-2022 History of Social function [facility] Start: 08-14-2022 End: 11-27-2022 Tobacco use panel [facility] Adult Depression Screening Assessment 3 [facility] Start: 07-02-2019 Gender identity Identifies as female gender (finding) [facility] Work Phone: Start: 07-02-2019 Sexual orientation Heterosexual (lin hoskins) [facility] Work Phone: Clinical Notes 06-23-2021 to 03-12-2023 Martir (Human Services Program Specialist), Dujna - 02/28/2023 10:00 AM Marie (Human Services Program Specialist), Duelsiena - 01/25/2023 8:54 AM EDTTheo Crawford [facility] - 01/25/2023 8:54 AM EDMiladis Mancuso - 01/01/2023 12:58 PM EDT Note Date & Type Note Facility 03-12-2023 Note HNO ID: [id number] Author: Estefania Ge APRN.[employer] Service: ? Author Type: Nurse Practitioner Type: Progress Notes Filed: 03/12/2023 6:08 PM Note Text: Subjective The history is provided by the patient. No ramp flight attendant was used. HPI Jose L Ramos is a 52 year old female who presents today for CC of Bilateral ear pain for 2 days, left ear is worse, she is also having a headahce and sore throat for 2 days. She did not do a Covid test. She denies any cough, congestion, runny nose, nausea, vomiting or diarrhea. She was started on macrobid yesterday for a uti by her MANUFACTURERS AGENT. BP 122/72 Pulse 74 Temp 36.5 ?C (97.7 ?F) Resp 16 Wt 69.4 kg (153 lb) LMP 11/15/2021 (Approximate) SpO2 98% BMI 23.26 kg/m? Social History Tobacco Use Smoking status: Never Smokeless tobacco: Never Vaping Use Vaping Use: Never used Substance Use Topics Alcohol use: Yes Comment: 1 time a week Drug use: No PAST MEDICAL HISTORY Diagnosis Date COVID 04/2020 Depression Endometriosis MS (multiple sclerosis) (HCC) I have confirmed and edited as necessary, the [facility] Review of Systems Constitutional: Negative for chills and fever. HENT: Positive for ear pain and sore throat. Negative for congestion and sinus pain. Tinnitus: bilateral, worse on left. Respiratory: Negative for cough, sputum production, shortness of breath and wheezing. Cardiovascular: Negative for chest pain. Musculoskeletal: Negative for myalgias. Neurological: Negative for headaches. Objective Physical Exam Vitals and nursing note reviewed. HENT: Head: Normocephalic and atraumatic. Right Ear: Ear canal and external ear normal. A middle ear effusion is present. Tympanic membrane is not erythematous or bulging. Left Ear: Ear canal and external ear normal. A middle ear effusion is present. Tympanic membrane is bulging. Nose: No mucosal edema, congestion or rhinorrhea. Right Sinus: No maxillary sinus tenderness or frontal sinus tenderness. Left Sinus: No maxillary sinus tenderness or frontal sinus tenderness. Mouth/Throat: Pharynx: Uvula midline. No oropharyngeal exudate or posterior oropharyngeal erythema. Cardiovascular: Rate and Rhythm: Normal rate and regular rhythm. Heart sounds: Normal heart sounds. Pulmonary: Effort: Pulmonary effort is normal. Breath sounds: Normal breath sounds. Lymphadenopathy: Head: Right side of head: No submental, submandibular or tonsillar adenopathy. Left side of head: No submental, submandibular or tonsillar adenopathy. Cervical: No cervical adenopathy. Skin: General: Skin is warm and dry. Neurological: Mental Status: She is alert. Psychiatric: Mood and Affect: Affect normal. ASSESSMENT/PLAN: 1. Sore throat - ICD9: 462, ICD10: J02.9 (primary diagnosis) - suspect viral - Group A strep molecular testing negative - Discussed supportive care treatment with fluids, rest and analgesia. - The patient may also use warm salt water gargles, throat lozenges and/or OTC throat spray as needed. - The patient should follow up in one week if symptoms persist or worsen - Call back if drooling, increased temperature, symptoms of dehydration and/or still sick in one week - STREP A MOLECULAR (POC) - COVID AND INFLUENZA A/B AND RSV NAAT, ROUTINE 2. Headache, unspecified headache type - ICD9: 784.0, ICD10: R51.9 Tylenol/ibuprofen - COVID AND INFLUENZA A/B AND RSV NAAT, ROUTINE 3. Fatigue, unspecified type - ICD9: 780.79, ICD10: R53.83 - COVID AND INFLUENZA A/B AND RSV NAAT, ROUTINE Possible viral illness Testing ordered Comfort measures discussed - see patient instructions. When to seek higher level of care Notified in 12-24 hours with results, available on [employer] 4. Otalgia of both ears - ICD9: 388.70, ICD10: H92.03 Appears to be fluid in ears Claritin D, flonase If worsening symptoms and viral panel negative, will start omnicef Diagnosis and treatment plan were discussed and questions were answered to the patient's satisfaction. Pt acknowledged understanding of concepts and follow up plan. Specific signs and symptoms that would indicate the need for higher level of care were discussed in detail warranting prompt ER evaluation. Estefania Ge APRN.[facility] 02-28-2023 Note HNO ID: [id number] Author: Martir (Human Services Program Specialist)Percy Service: ? Author Type: ? Type: Progress Notes Filed: 02/28/2023 3:54 PM Note Text: [facility] Specialty Refill Assessment Medication(s): Tecfidera Patient's current medication list and adherence status to current therapy were reviewed by Specialty Pharmacy clinical pharmacist to identify any new drug interactions or non-compliance to therapy. Therapy continues to be appropriate for disease, patient response, and medical condition. Verification of therapeutic benefit and effectiveness with current therapy was completed. Adverse events, barriers in adherence, and side effects were assessed and addressed if applicable. Will proceed with refill with no changes in therapy - patient progressing towards achieving therapeutic goals based on medication-specific laboratory parameters, disease state markers and outcomes. Theo Crawford, PharmD Pharmacist, [facility] Specialty Senior Environmental Scientist Assessment Patient confirmed: Yes Med/dose confirmed: Yes Supplies needed: No supplies needed Missed doses: No Estimated days supply on hand: 5 (was not home to verify on hand amount) Next cycle/dose due: 02/28/23 Copay amount: 0 Payment confirmed: Yes Delivery method: FedEx Signature required: Waived on patient request Delivery address: [facility] [address] [facility] [id number] Delivery date: 03/04/23 Questions or concerns for the pharmacist?: No [facility] Specialty Pharmacy Visit Assessment - Neurology: Assessment to use: Refill Vaccination Assessment: Date of influenza vaccination reminder: 12/11/2022 Date of most recent vaccination assessment: 12/11/2022 Refill Assessment: Assessment of injection issues or necrosis at injection sites: N/A Screening for infection: Yes Adverse reactions and mitigation: Yes Drug specific assessments, as appropriate: Yes Additional Assessment: S/Sx of relapse: No S/Sx of progression to secondary progressive disease: No Percy Mcmahan (Human Services Program Specialist) [facility] 02-28-2023 History of Present illness Narrative [facility] Specialty Refill Assessment Medication(s): Tecfidera Patient's current medication list and adherence status to current therapy were reviewed by Specialty Pharmacy clinical pharmacist to identify any new drug interactions or non-compliance to therapy. Therapy continues to be appropriate for disease, patient response, and medical condition. Verification of therapeutic benefit and effectiveness with current therapy was completed. Adverse events, barriers in adherence, and side effects were assessed and addressed if applicable. Will proceed with refill with no changes in therapy - patient progressing towards achieving therapeutic goals based on medication-specific laboratory parameters, disease state markers and outcomes. Theo Crawford, PharmD Pharmacist, [facility] Specialty Senior Environmental Scientist Assessment Patient confirmed: Yes Med/dose confirmed: Yes Supplies needed: No supplies needed Missed doses: No Estimated days supply on hand: 5 (was not home to verify on hand amount) Next cycle/dose due: 02/28/23 Copay amount: 0 Payment confirmed: Yes Delivery method: FedEx Signature required: Waived on patient request Delivery address: [address] [place] [id number] Delivery date: 03/04/23 Questions or concerns for the pharmacist?: No [facility] Specialty Pharmacy Visit Assessment - Neurology: Assessment to use: Refill Vaccination Assessment: Date of influenza vaccination reminder: 12/11/2022 Date of most recent vaccination assessment: 12/11/2022 Refill Assessment: Assessment of injection issues or necrosis at injection sites: N/A Screening for infection: Yes Adverse reactions and mitigation: Yes Drug specific assessments, as appropriate: Yes Additional Assessment: S/Sx of relapse: No S/Sx of progression to secondary progressive disease: No Percy Mcmahan (Human Services Program Specialist) documented in this encounter [facility] 01-25-2023 Note HNO ID: [id number] Author: Theo Crawford RPh Service: ? Author Type: Pharmacist Type: Progress Notes Filed: 01/28/2023 3:56 PM Note Text: Tecfidera PA was approved with details listed below. Plan Name: Geraldo WIL reference number: [id number] Approval Dates: Approved through 04-03-23 Tecfidera will continue to be dispensed by [facility]. Theo Crawford [facility] 01-25-2023 Note HNO ID: [id number] Author: Martir WilsonExpandlyPercy Agudelo Service: ? Author Type: ? Type: Progress Notes Filed: 01/25/2023 8:56 AM Note Text: Benefits investigation was conducted, indicating that a prior authorization renewal is required for Tecfidera by pt's plan with Geraldo . Note will be updated once prior authorization has been submitted. Percy Mcmahan CPhT (Dee) [facility] Specialty Pharmacy, Neurology/Cardiology/Infections Disease/Inflammatory P: F: [facility] 01-25-2023 Note HNO ID: [id number] Author: Theo Crawford RPh Service: ? Author Type: Pharmacist Type: Progress Notes Filed: 01/25/2023 2:34 PM Note Text: Tecfidera PA was initiated and pending review. Plan Name: Geraldo [place] Agent/Barksdale: [id number] Timeline: Urgent Theo Crawford [facility] 01-25-2023 Note HNO ID: [id number] Author: Martir WilsonExpandlyPercy Agudelo Service: ? Author Type: ? Type: Progress Notes Filed: 01/30/2023 12:20 PM Note Text: [facility] Specialty Refill Assessment Medication(s): Tecfidera Patient's current medication list and adherence status to current therapy were reviewed by Specialty Pharmacy clinical pharmacist to identify any new drug interactions or non-compliance to therapy. Therapy continues to be appropriate for disease, patient response, and medical condition. Verification of therapeutic benefit and effectiveness with current therapy was completed. Adverse events, barriers in adherence, and side effects were assessed and addressed if applicable. Will proceed with refill with no changes in therapy - patient progressing towards achieving therapeutic goals based on medication-specific laboratory parameters, disease state markers and outcomes. Felt Finishing Supervisor Assessment Patient confirmed: Yes Med/dose confirmed: Yes Supplies needed: No supplies needed Missed doses: No Estimated days supply on hand: 5 Copay amount: 0 Payment confirmed: Yes Delivery method: FedEx Signature required: Waived on patient request Delivery address: [facility] [address] [facility] [id number] Delivery date: 01/31/23 Questions or concerns for the pharmacist?: No [facility] Specialty Pharmacy Visit Assessment - Neurology: Assessment to use: Refill Vaccination Assessment: Date of influenza vaccination reminder: 12/11/2022 Date of most recent vaccination assessment: 12/11/2022 Refill Assessment: Assessment of injection issues or necrosis at injection sites: N/A Screening for infection: Yes Adverse reactions and mitigation: Yes Drug specific assessments, as appropriate: Yes Additional Assessment: S/Sx of relapse: No S/Sx of progression to secondary progressive disease: No Percy Mcmahan (Human Services Program Specialist) ALLERGIES Allergen Reactions Biaxin [Clarithromy* Hives, Swelling, Other: See Comments Sores in mouth and lips Ultram [Tramadol Hc* Mental Status Change Meloxicam Diarrhea, Vomiting Penicillins Rash Veetids [Penicillin* Mental Status Change, Other: See Comments Dizziness and light headed Angela Baker [facility] Clinical Pharmacist, Hepatology AND HCV [facility] Specialty Pharmacy P: ; F: Pool: P [facility] [facility] 01[facility]25[facility]23 History of Present illness Narrative Benefits investigation was conducted, indicating that a prior authorization renewal is required for Tecfidera by pt's plan with Geraldo . Note will be updated once prior authorization has been submitted. Percy Leonard) Eder Mcmahan [facility], Neurology/Cardiology/Infections Disease/Inflammatory P: F: Tecfidera PA was initiated and pending review. Plan Name: Geraldo Plan Agent/[place]dale: [id number] Timeline: Urgent Theo Ty, RPh documented in this encounter [facility] 01-11-2023 Miscellaneous Notes Source : fax from pharmacy requesting refill. Delivery : e-script Requested Prescriptions Pending Prescriptions Disp Refills clonazePAM (KLONOPIN) 0.5 mg tablet 30 tablet 0 DX : Patient last seen 11/30/2022 Next Appointment : 05/31/2023 Elsy Ricks documented in this encounter [facility] 01-07-2023 Miscellaneous Notes Per Ben's note 11/30: CBC & CMP this month -Consult psychiatry (NPE brought up question of ADHD) Pscyhiatry per NPE recommendation for possible ADHD, she has not seen anyone for this as she got caught up with KLARISSA and sorting that out. documented in this encounter [facility] 01-01-2023 Note HNO ID: [id number] Author: Miladis Menendez Service: ? Author Type: ? Type: Progress Notes Filed: 01/01/2023 5:07 PM Note Text: [facility] Ref[facility] Assessment Medication(s): Tecfidera Labs updated and reviewed by provider Next follow up 05/31/23 ALLERGIES Allergen Reactions Biaxin [Clarithromy* Hives, Swelling, Other: See Comments Sores in mouth and lips Ultram [Tramadol Hc* Mental Status Change Meloxicam Diarrhea, Vomiting Penicillins Rash Veetids [Penicillin* Mental Status Change, Other: See Comments Dizziness and light headed Angela Baker RPh Clinical Pharmacist, Hepatology AND HCV [facility] P: ; F: Pool: P CC SPEC GROUP 3 Patient's current medication list and adherence status to current therapy were reviewed by Specialty Pharmacy clinical pharmacist to identify any new drug interactions or non-compliance to therapy. Therapy continues to be appropriate for disease, patient response, and medical condition. Verification of therapeutic benefit and effectiveness with current therapy was completed. Adverse events, barriers in adherence, and side effects were assessed and addressed if applicable. Will proceed with refill with no changes in therapy - patient progressing towards achieving therapeutic goals based on medication-specific laboratory parameters, disease state markers and outcomes. Felt Finishing Supervisor Assessment Patient confirmed: Yes Med/dose confirmed: Yes Missed doses: No Estimated days supply on hand: 5 Next cycle/dose due: 01/02/23 Copay amount: 0 Delivery method: FedEx Signature required: No Delivery address: [facility] [employer] [facility] [address] Delivery date: 01/04/23 Questions or concerns for the pharmacist?: No [facility] Visit Assessment - Neurology: Assessment to use: Refill Vaccination Assessment: Date of influenza vaccination reminder: 12/11/2022 Date of most recent vaccination assessment: 12/11/2022 Refill Assessment: Assessment of injection issues or necrosis at injection sites: N/A Screening for infection: Yes Adverse reactions and mitigation: Yes Drug specific assessments, as appropriate: Yes Additional Assessment: S/Sx of relapse: No S/Sx of progression to secondary progressive disease: No Miladis Menendez CPhT [facility], Neurology, Cardiology, AND Infectious Disease P: [phone] F: [phone] [facility] 01-01-2023 History of Present illness Narrative [facility] Medication(s): Tecfidera Labs updated and reviewed by provider Next follow up 05/31/23 ALLERGIES Allergen Reactions Biaxin [Clarithromy* Hives, Swelling, Other: See Comments Sores in mouth and lips Ultram [Tramadol Hc* Mental Status Change Meloxicam Diarrhea, Vomiting Penicillins Rash Veetids [Penicillin* Mental Status Change, Other: See Comments Dizziness and light headed Angela Baker RP Clinical Pharmacist, Hepatology & HCV [facility] P: ; F: Pool: P CC SPEC GROUP 3 Patient's current medication list and adherence status to current therapy were reviewed by Specialty Pharmacy clinical pharmacist to identify any new drug interactions or non-compliance to therapy. Therapy continues to be appropriate for disease, patient response, and medical condition. Verification of therapeutic benefit and effectiveness with current therapy was completed. Adverse events, barriers in adherence, and side effects were assessed and addressed if applicable. Will proceed with refill with no changes in therapy - patient progressing towards achieving therapeutic goals based on medication-specific laboratory parameters, disease state markers and outcomes. Felt Finishing Supervisor Assessment Patient confirmed: Yes Med/dose confirmed: Yes Missed doses: No Estimated days supply on hand: 5 Next cycle/dose due: 01/02/23 Copay amount: 0 Delivery method: FedEx Signature required: No [facility] [address] [facility] [address] Delivery date: 01/04/23 Questions or concerns for the pharmacist?: No [facility] Visit Assessment - Neurology: Assessment to use: Refill Vaccination Assessment: Date of influenza vaccination reminder: 12/11/2022 Date of most recent vaccination assessment: 12/11/2022 Refill Assessment: Assessment of injection issues or necrosis at injection sites: N/A Screening for infection: Yes Adverse reactions and mitigation: Yes Drug specific assessments, as appropriate: Yes Additional Assessment: S/Sx of relapse: No S/Sx of progression to secondary progressive disease: No Miladis Menendez CPhT [facility], Neurology, Cardiology, & Infectious Disease P: [phone] F: [phone] documented in this encounter [facility] 12-03-2022 Note HNO ID: [id number] Author: Elsy Ricks Service: ? Author Type: ? Type: Progress Notes Filed: 12/03/2022 9:24 AM Note Text: Mailed Lab(CBC AND CMP) Orders to Patient : JOSE L RAMOS [address] [facility] [id number] completed by Elsy Ricks December 03, 2022. [facility] 12-03-2022 History of Present illness Narrative Mailed Lab(CBC & CMP) Orders to Patient : JOSE L RAMOS [address] [facility] [id number] completed by Elsy Ricks December 03, 2022. documented in this encounter [facility] 11-30-2022 Note HNO ID: [id number] Author: Elsy Ricks Service: ? Author Type: ? Type: Progress Notes Filed: 11/30/2022 4:12 PM Note Text: Mailed Disability Placard to patient: JOSE L RAMOS [address] [facility] [address] Elsy Rikcs [facility] 11-30-2022 History of Present illness Narrative Mailed Disability Placard to patient: JOSE L RAMOS [address] [facility] [address] Elsy Ricks documented in this encounter [facility] 11-30-2022 Note HNO ID: [id number] Author: Ben Farr PA-C Service: ? Author Type: Physician Interventional Radiology Technologist Type: Progress Notes Filed: 11/30/2022 2:12 PM Note Text: [facility] MULTIPLE SCLEROSIS FOLLOWUP/ESTABLISHED PATIENT VIRTUAL VISIT PRINCIPAL NEUROLOGIC DIAGNOSIS: Multiple Sclerosis DISEASE SUMMARY Date of onset: 2007 Date of diagnosis of MS: 2010 Disease course at onset: Relapsing-Remitting Current disease course: Relapsing-Remitting Previous disease therapies: - Avonex - Aubagio (03/2013 - 06/2015) - recurrent sinus infection Current disease therapy: Tecfidera (08/2016-Current) Most recent MRI brain: 05/24/2022; 05/19/2021 (stable) Most recent MRI cervical spine: 01/03/2015 CHIEF COMPLAINT: Follow-up on MS disease modifying therapy INTERVAL HISTORY:Today's visit is being completed virtually over Zoom. Patient consented to proceed with virtual visit. I have communicated my name and active licensure. The patient's identity and physical location were verified at the time of this visit. Either the patient or their legal licensing representative has been informed of the risks and benefits of -- and alternatives to -- treatment through a remote evaluation and consents to proceed with the evaluation remotely. Usual treating team: Aicha/Sulema Patient accompanied by self. Last seen 05/24/2022. Currently taking tecfidera. Has missed 0 in last 3 months. Tolerating medication with some flushing, mild. No new neurological symptoms. Has seen sleep medicine, was dx with sleep apnea. Now using a CPAP. Sleep doesn't feel much different. Still having severe fatigue. Nuvigil seems to work a little better then Provigil. Pscyhiatry per NPE recommendation for possible ADHD, she has not seen anyone for this as she got caught up with KLARISSA and sorting that out. Working with allergy, getting tested for food allergies. She did notice tingling on sides of tongue, intermittent. Was wondering if this was allergy or MS. Currently wearing a boot on L foot, otherwise ambulating without assistance. In April she hit her toe outside on the deck near sliding door and thought she broke L 2nd toe. Had some pain, but could walk. Was not seen for this. Then in August went on vacation and same thing occurred where she injured her L foot and re broke 2nd L toe. 2nd time it hurt even more. She was able to ambulate, however having increased pain and felt gait was being effected. She saw podiatry about 1.5 weeks ago regarding this. That is when she was given the L foot boot. Denies notable L foot drop, podiatry didn't think foot was weak on exam per pt. REVIEW OF SYSTEMS: Mood: Good/bright On citalopram 30mg PO every day Has not seen psychiatry for questionable ADHD which was previously brought up in NPE Bladder: No change Bowel: No change Fatigue: Severe, See HPI Sleep: interrupted, restless body/legs; newly dx with KLARISSA now using CPAP Memory/Concentration: no change Neuro-QoL Functions (higher=better functioning) Flowsheet Row Appointment from 11/30/2022 in [facility] Office Visit from 05/24/2022 in [facility] Social Work from 02/09/2022 in [facility] Upper Extremity Domain T Score -- 49 41 Lower Extremity Domain T Score 44 50 48 Cognitive Function Domain T Score 29 29 31 Positive Affect Well Being T Score -- -- -- Ability To Participate In Social Roles T Score 38 38 37 Satisfaction With Social Roles T Score 41 39 36 Neuro-QoL Symptoms (higher=worse symptoms) Flowsheet Row Appointment from 11/30/2022 in [facility] Office Visit from 05/24/2022 in [facility] Distance Health from 03/01/2022 in Psychology Sleep Domain T Score 68 65 -- Fatigue Domain T Score 63 65 -- Anxiety Domain T Score 59 59 -- Depression Domain T Score 59 57 57 Stigma Domain T Score 57 58 -- Emotional Behavior Dyscontrol T Score -- -- -- PAST HISTORY was reviewed and updated: PAST MEDICAL HISTORY Diagnosis Date COVID 04/2020 Depression Endometriosis MS (multiple sclerosis) (HCC) PAST SURGICAL HISTORY Procedure Laterality Date LAPS ABD PRTMANDOMENTUM DX W/WO SPEC BR/WA SPX Laparoscopy MEDICATIONS and ALLERGIES were reviewed and updated. SOCIAL HISTORY was reviewed and updated: Current living situation: At home Current vocational status: applying for disability, no update recently EXAM: General Appearance: well appearing, in no acute distress Mental status evaluation during the interview and examination showed Reported difficulties: memory word finding concentration / attention Affect: Normal Speech: normal RESULTS: Monitoring labs: CBC + Diff Component Value Date WBC 4.80 05/24/2022 HB 12.8 05/24/2022 HCT 37.6 05/24/2022 PLT 331 05/24/2022 ABSLYMPH 1.15 05/24/2022 CMP Component Value Date AST 18 05/24/2022 GLUC 94 05/24/2022 BUN 13 05/24/2022 CREAT 0.72 05/24/2022 NA 138 05/24/2022 K 4.7 05/24/2022 CHLOR 101 05/24/2022 ALT 17 05/24/2022 MRI brain: No n (more content not included)... [facility] 11-30-2022 Miscellaneous Notes Summary: Appointment 11/30/22 - [facility] to schedule brain and CS MRIs with FU with Anastasiia in 6 months. - GL documented in this encounter [facility] 11-30-2022 History of Present illness Narrative Images from the original note were not included. [facility] FOR MULTIPLE SCLEROSIS FOLLOWUP/ESTABLISHED PATIENT VIRTUAL VISIT PRINCIPAL NEUROLOGIC DIAGNOSIS: Multiple Sclerosis DISEASE SUMMARY Date of onset: 2007 Date of diagnosis of MS: 2010 Disease course at onset: Relapsing-Remitting Current disease course: Relapsing-Remitting Previous disease therapies: - Avonex - Aubagio (03/2013 - 06/2015) - recurrent sinus infection Current disease therapy: Tecfidera (08/2016-Current) Most recent MRI brain: 05/24/2022; 05/19/2021 (stable) Most recent MRI cervical spine: 01/03/2015 CHIEF COMPLAINT: Follow-up on MS disease modifying therapy INTERVAL HISTORY:Today's visit is being completed virtually over Zoom. Patient consented to proceed with virtual visit. I have communicated my name and active licensure. The patient's identity and physical location were verified at the time of this visit. Either the patient or their legal licensing representative has been informed of the risks and benefits of -- and alternatives to -- treatment through a remote evaluation and consents to proceed with the evaluation remotely. Usual treating team: Aicha/Sulema Patient accompanied by self. Last seen 05/24/2022. Currently taking tecfidera. Has missed 0 in last 3 months. Tolerating medication with some flushing, mild. No new neurological symptoms. Has seen sleep medicine, was dx with sleep apnea. Now using a CPAP. Sleep doesn't feel much different. Still having severe fatigue. Nuvigil seems to work a little better then Provigil. Pscyhiatry per NPE recommendation for possible ADHD, she has not seen anyone for this as she got caught up with KLARISSA and sorting that out. Working with allergy, getting tested for food allergies. She did notice tingling on sides of tongue, intermittent. Was wondering if this was allergy or MS. Currently wearing a boot on L foot, otherwise ambulating without assistance. In April she hit her toe outside on the deck near sliding door and thought she broke L 2nd toe. Had some pain, but could walk. Was not seen for this. Then in August went on vacation and same thing occurred where she injured her L foot and re broke 2nd L toe. 2nd time it hurt even more. She was able to ambulate, however having increased pain and felt gait was being effected. She saw podiatry about 1.5 weeks ago regarding this. That is when she was given the L foot boot. Denies notable L foot drop, podiatry didn't think foot was weak on exam per pt. REVIEW OF SYSTEMS: Mood: Good/bright On citalopram 30mg PO every day Has not seen psychiatry for questionable ADHD which was previously brought up in NPE Bladder: No change Bowel: No change Fatigue: Severe, See HPI Sleep: interrupted, restless body/legs; newly dx with KLARISSA now using CPAP Memory/Concentration: no change Neuro-QoL Functions (higher=better functioning) Flowsheet Row Appointment from 11/30/2022 in [facility] Office Visit from 05/24/2022 in [facility] Social Work from 02/09/2022 in [facility] Upper Extremity Domain T Score -- 49 41 Lower Extremity Domain T Score 44 50 48 Cognitive Function Domain T Score 29 29 31 Positive Affect Well Being T Score -- -- -- Ability To Participate In Social Roles T Score 38 38 37 Satisfaction With Social Roles T Score 41 39 36 Neuro-QoL Symptoms (higher=worse symptoms) Flowsheet Row Appointment from 11/30/2022 in [facility] Office Visit from 05/24/2022 in [facility] Distance Health from 03/01/2022 in Psychology Sleep Domain T Score 68 65 -- Fatigue Domain T Score 63 65 -- Anxiety Domain T Score 59 59 -- Depression Domain T Score 59 57 57 Stigma Domain T Score 57 58 -- Emotional Behavior Dyscontrol T Score -- -- -- PAST HISTORY was reviewed and updated: PAST MEDICAL HISTORY Diagnosis Date COVID 04/2020 Depression Endometriosis MS (multiple sclerosis) (HCC) PAST SURGICAL HISTORY Procedure Laterality Date LAPS ABD PRTM&OMENTUM DX W/WO SPEC BR/WA SPX Laparoscopy MEDICATIONS and ALLERGIES were reviewed and updated. SOCIAL HISTORY was reviewed and updated: Current living situation: At home Current vocational status: applying for disability, no update recently EXAM: General Appearance: well appearing, in no acute distress Mental status evaluation during the interview and examination showed Reported difficulties: memory word finding concentration / attention Affect: Normal Speech: normal RESULTS: Monitoring labs: CBC + Diff Component Value Date WBC 4.80 05/24/2022 HB 12.8 05/24/2022 HCT 37.6 05/24/2022 PLT 331 05/24/2022 ABSLYMPH 1.15 05/24/2022 CMP Component Value Date AST 18 05/24/2022 GLUC 94 05/24/2022 BUN 13 05/24/2022 CREAT 0.72 05/24/2022 NA 138 05/24/2022 K 4.7 05/24/2022 CHLOR 101 05/24/2022 ALT 17 05/24/2022 MRI brain: No new brain MRI to review ASSESSMENT: Jose L Ramos is a 52 year old RRMS on tecfidera which she tolerates well. She does note new onset tongue paresthesias, but also being worked up for food allergy. Will monitor. Has injured L foot twice now due to tripping over door frame. Currently following with podiatry and in a L boot. Once healed, will consult PT for gait, balance, and to assess for mild foot drop. Will plan to obtain updated brain & CS MRIs to be sure no new T2 or enhancing lesions. Continue tecfidera. Due for lab monitoring this month. PLAN: -Continue Tecfidera -Brain & CS MRI in 6 months -CBC & CMP this month -Consult psychiatry (NPE brought up question of ADHD) -Consult PT -Follow up with sleep medicine (newly dx with KLARISSA) -Continue Nuvigil 150mg PO QAM -Follow up in 6 months I spent a total of 30 minutes on the date of the service which included preparing to see the patient, [id number] patient care, completing clinical documentation, counseling and educating the patient/family/caregiver, ordering medications, tests, or procedures, and communicating results to the patient/family/caregiver. Ben Farr PA-C documented in this encounter [facility] 11-22-2022 Note HNO ID: [id number] Author: Rakesh Boateng [facility] Service: ? Author Type: Pharmacist Type: Progress Notes Filed: 12/11/2022 11:56 AM Note Text: [facility] received prescription(s) for A script for Tecfidera from Dr. Farr's office. Benefits investigation was conducted, indicating that a prior authorization is required. WIL was approved with details listed below: Pt's copay is $0.00. Shipment has been arranged, and pt will receive medication(s) on 12/13/22. Upon receipt of the prescription, it was determined that patient is not new to medication but is new to [facility]. Therefore, a full drug interaction review was conducted, based on medication list provided in hyperspace. No Durg drug interactions were identified with her specialty drug At the time patient was contacted to set up delivery, pharmacy staff reviewed [facility] services and provided contact information for the pharmacy. Additionally, pharmacy staff confirmed medication name and current dose with patient. An offer was then extended for an opportunity to speak with a pharmacist regarding questions/concerns before the call was completed. S/he expressed understanding of the information provided. Initial shipment will include a handout detailing drug information including injection technique (if applicable), side effects and proper storage/handling requirements. PAST MEDICAL HISTORY Diagnosis Date COVID 04/2020 Depression Endometriosis MS (multiple sclerosis) ([facility]) ALLERGIES Allergen Reactions Biaxin [Clarithromy* Hives, Swelling, Other: See Comments Sores in mouth and lips Ultram [Tramadol Hc* Mental Status Change Meloxicam Diarrhea, Vomiting Penicillins Rash Veetids [Penicillin* Mental Status Change, Other: See Comments Dizziness and light headed Problem List Noted Noted By Resolved Resolved By Abnormality of breathing 05/18/2021 Oscar Wilcox MD No COVID-19 long hauler 04/17/2021 Oscar Wilcox MD No Muscle cramps 01/03/2015 Francisco Butterfield MD No MS (multiple sclerosis) ([facility]) 11/16/2010 Dale Muñoz (Hist) No Felt Finishing Supervisor Assessment Patient confirmed: Yes Med/dose confirmed: Yes Supplies needed: Welcome packet Missed doses: No Estimated days supply on hand: 5 Copay amount: 0 Payment confirmed: Yes Delivery method: FedEx Signature required: No Delivery address: [address] [place], [place] [id number] Delivery date: 12/13/22 Questions or concerns for the pharmacist?: No [facility] Visit Assessment - Neurology: Assessment to use: Initial Vaccination Assessment: Annual influenza vaccination reminder: Yes Date of influenza vaccination reminder: 12/11/2022 Vaccination assessment completed: Yes Date of most recent vaccination assessment: 12/11/2022 Initial Assessment: Current and prior medication therapy assessment completed: Yes Patient device teaching: N/A Verification of patient acceptance and understanding of injection technique: Yes Baseline lab assessment (TSH, LFTs, CBC): Yes Counseling on intended outcome of therapy: Yes Rakesh BOATENG [facility] 11-22-2022 Note HNO ID: [id number] Author: Angela Baker [facility] Service: ? Author Type: Pharmacist Type: Progress Notes Filed: 12/05/2022 12:03 PM Note Text: Spoke to patient. She is established at [facility] but would like to change and use us. She is at work and will call us back when she needs refill. She does require BRAND name Tecfidera. Patient has my name and number for reference [phone]. All questions answered. ALLERGIES Allergen Reactions Biaxin [Clarithromy* Hives, Swelling, Other: See Comments Sores in mouth and lips Ultram [Tramadol Hc* Mental Status Change Meloxicam Diarrhea, Vomiting Penicillins Rash Veetids [Penicillin* Mental Status Change, Other: See Comments Dizziness and light headed Angela Baker [facility] Clinical Pharmacist, Hepatology AND HCV [facility] P: ; F: Pool: P CC SPEC GROUP 3 [facility] 11-22-2022 Note HNO ID: [id number] Author: Martir (Human Services Program Specialist)Percy Service: ? Author Type: ? Type: Progress Notes Filed: 11/22/2022 4:45 PM Note Text: [facility] received prescription(s) for Tecfidera from [facility]'s office. Benefits investigation was conducted, indicating that a prior authorization is not required at this time per patient's plan with [employer] - current PA good until 04/04/23. Prescriptions will now be processed through [facility] for determination of next steps. Percy Mcmahan CPhT (Dee) [facility], Neurology/Cardiology/Infections Disease/Inflammatory P: F: [facility] 11-22-2022 History of Present illness Narrative [facility] received prescription(s) for Tecfidera from Ben Sulema's office. Benefits investigation was conducted, indicating that a prior authorization is not required at this time per patient's plan with [employer] - current PA good until 04/04/23. Prescriptions will now be processed through [facility] for determination of next steps. Percy Mcmahan CPhT (Dee) [facility], Neurology/Cardiology/Infections Disease/Inflammatory P: F: documented in this encounter [facility] 11-22-2022 Miscellaneous Notes Source : electronic from pharmacy requesting refill. Delivery : e-script Requested Prescriptions Pending Prescriptions Disp Refills clonazePAM (KLONOPIN) 0.5 mg tablet [Pharmacy Med Name: CLONAZEPAM 0.5MG TAB 0.5 Tablet] 30 tablet 0 Sig: TAKE 1 TABLET BY MOUTH DAILY AT BEDTIME FOR SLEEP DX : Patient last seen 06/14/2022 Next Appointment : 11/30/2022 Elsy Ricks documented in this encounter [facility] 10-05-2022 Miscellaneous Notes Source : electronic from pharmacy requesting refill. Delivery : e-script Requested Prescriptions Pending Prescriptions Disp Refills naproxen (NAPROSYN) 375 mg tablet [Pharmacy Med Name: NAPROXEN 375 MG TABLET] 60 tablet 1 Sig: TAKE 1 TABLET BY MOUTH TWICE DAILY WITH MEALS NEEDED DX : Patient last seen: 05/24/2022 Next Appointment : 11/30/2022 Sydney East documented in this encounter [facility] 09-18-2022 Miscellaneous Notes Source : electronic from pharmacy requesting refill. Delivery : e-script Requested Prescriptions Pending Prescriptions Disp Refills clonazePAM (KLONOPIN) 0.5 mg tablet [Pharmacy Med Name: CLONAZEPAM 0.5MG TAB 0.5 Tablet] 30 tablet 1 Sig: TAKE 1 TABLET BY MOUTH DAILY AT BEDTIME FOR SLEEP DX : Patient last seen 05/24/2022 Next Appointment : 11/30/2022 ROBER Burns documented in this encounter [facility] 08-14-2022 Note HNO ID: [id number] Author: Anna Melgoza APRN.CRISTOBAL Service: ? Author Type: Nurse Practitioner Type: Progress Notes Filed: 08/14/2022 4:38 PM Note Text: [facility] Follow up/ Established patient visit Date of last visit : 06/13/2022 I have communicated my name and active licensure. The patient's identity and physical location were verified at the time of this visit. Either the patient or their legal licensing representative has been informed of the risks and benefits of -- and alternatives to -- treatment through a remote evaluation and consents to proceed with the evaluation remotely. [facility] Per last visit: IMPRESSION/PLAN: Jose L Ramos is a 51 year old female MS, Covid 19 long-hauler Who presents with daytime sleepiness, history of snoring. . No REM intrusion sxs (although on celexa). Sleepiness in afternoon once am modafanil wears off. No afternoon dosage PSG already on schedule to look for sleep disordered breathing or PLMs. MSLT: ideally would wean off celexa, klonopin, modafanil, gabapentin: however concern for narcolepsy is low; and already on modafanil Would recommend either increasing modafanil to twice daily dosing vs armodafanil starting at 150 mg in the morning, and increaing to 250 mg if needed. She has asked that neurology keep prescribing if possible. Will message her neurology team. Track sleep diaries for 2 weeks and upload for review F/u post sleep study in results clinic Adrianna Can MD Hasn't tried nuvigil Interval history : Here for follow up for PSG results PSG completed 07/23/2022 showed UARS with overall RDI in the mild range 9.7, off supine RDI 17.6 and was associated with a minimum O2 saturation of 88%. Ms. Ramos reports ongoing EDS, she will sleep all night and then through out the day as well. She tried the provigil but has not yet tried the nuvigil, her MS specialist stated it might interact with one of her medications. She needs to know if she should restart She does report leg discomfort during the night. Is currently taking gabapentin 200 mg before bed. She's unsure if this is spasticity from her MS or from RLS, could be either or more. Sleep logs were completed PATIENT-ENTERED QUESTIONNAIRE SLEEP SCORES Sleep Questions 08/12/2022 Reason for visit: Difficulty falling or staying asleep or poor sleep quality, Excessive daytime sleepiness, Narcolepsy, Restless Legs Syndrome, Unsure Average hours slept in 24 hours: - Accidents or near accidents due to drowsy drivin [place] Sleepiness Scale 06/28/2021 06/11/2022 08/12/2022 Score 21 (severe daytime sleepiness) 19 (severe daytime sleepiness) 18 (severe daytime sleepiness) PROMIS CAT Sleep Disturbance 06/28/2021 06/11/2022 08/12/2022 PROMIS Sleep Disturbance T-Score 60 (mild) 57 (mild) 56 (mild) PROMIS Sleep Disturbance Percentile - 24 % 27 % Insomnia Severity Index 06/11/2022 08/12/2022 Score 23 23 Restless Leg Syndrome 06/11/2022 08/12/2022 Score 13 23 PHQ-9 02/24/2022 05/24/2022 08/12/2022 Score 19 14 18 PROMIS Global Health - (T-Scores - the mean of general population = 50. Five points is a clinically meaningful difference.) 01/02/2022 02/07/2022 05/24/2022 Physical T-Score 32.4 34.9 32.4 Mental T-Score 36.3 33.8 36.3 PMH, PSH, SH: reviewed SLEEP RELATED ROS Review of Systems Constitutional: Positive for fatigue. HENT: Positive for congestion. Genitourinary: Negative for nocturia. Musculoskeletal: Positive for uncomfortable leg sensations. Skin: Negative for rash. ALLERGIES Allergen Reactions Biaxin [Clarithromy* Hives, Swelling, Other: See Comments Sores in mouth and lips Ultram [Tramadol Hc* Mental Status Change Meloxicam Diarrhea, Vomiting Penicillins Rash Veetids [Penicillin* Mental Status Change, Other: See Comments Dizziness and light headed CURRENT MEDICATIONS: armodafinil (NUVIGIL) 150 mg tab Take 1 tablet by mouth once daily for 30 days. clonazePAM (KLONOPIN) 0.5 mg tablet TAKE 1 TABLET BY MOUTH DAILY AT BEDTIME FOR SLEEP *DO NOT START BEFORE 05/21/2022* citalopram (CELEXA) 20 mg tablet TAKE 1 AND 1/2 TABLETS BY MOUTH ONCE DAILY ORILISSA 150 mg tablet Take 150 mg by mouth once daily. TECFIDERA [address] Take 1 capsule (240 mg) by mouth twice daily. naproxen (NAPROSYN) 375 mg tablet TAKE 1 TABLET BY MOUTH TWICE DAILY WITH MEALS NEEDED gabapentin (NEURONTIN) 100 mg capsule TAKE 1 CAPSULE BY MOUTH IN THE MORNING ANDTAKE 2 CAPSULES AT BEDTIME aspirin (ASPIR-81 ORAL) Take by mouth. MEDICATION, NON-DATABASE probiotic Apr 03, 2016 .5 mg 1 D3 Sep 06, 2010 MS 5400 IU 1 cranberry May 15, 2017 urinary pain 4200 mg 2 E May 04, 2015 tender breasts 180 mg 1 B Sep 06, 2010 Energy 250 mcg fluticasone (FLONASE) 50 mcg/actuation nasal spray Use 1 [place] in each nostril once daily. omeprazole (PRILOSEC) 20 mg capsule Take 20 mg by mouth once daily. OTC PRODUCT Take 1 Dose by mouth daily at (more content not included)... [facility] 08-08-2022 Note HNO ID: [id number] Author: Jessica Bhatti, Research Coordinator Service: ? Author Type: Research Type: Progress Notes Filed: 08/08/2022 10:24 AM Note Text: Retroactive MS SmartForm Completion (Update) -Jessica Bhatti, Research Coordinator [facility] 08-02-2022 Miscellaneous Notes Playtika message sent documented in this encounter [facility] 08-01-2022 Miscellaneous Notes Source : mychart from patient requesting refill. Delivery : e-script Requested Prescriptions Pending Prescriptions Disp Refills modafinil (PROVIGIL) 200 mg tablet 60 tablet 0 Sig: Take 1 tablet by mouth twice daily for 30 days. Do not take 2nd dose later then 2PM. Patient last seen : 05/24/2022 Next Appointment : 11/30/2022 Ne Sabillon documented in this encounter [facility] 07-24-2022 Note HNO ID: [id number] Author: Amie Gr Service: ? Author Type: ? Type: Progress Notes Filed: 07/24/2022 5:35 AM Note Text: Sleep Study Check-In Documentation Date: July 24, 2022 Name: Jose L Ramos Patient was accompanied by Self. Location: IC Latex allergy: Yes Tape allergy: No Current medications were reviewed with the patient:Yes Sleep aid taken by patient for the sleep study: [place] of sleep aid: Not Applicable Procedure was explained to the patient and all questions were answered. PAP treatment discussed and shown to patient: Yes --------- Knowledge Program (KP): KP was not completed in [facility] by patient and accepted Study type: Polysomnogram Adverse Event: No (If yes create a new abstract) Comments: Patient was advised to follow up with their ordering provider regarding test results Amie Gr [facility] 07-24-2022 History of Present illness Narrative Sleep Study Check-In Documentation Date: July 24, 2022 Name: Jose L Ramos Patient was accompanied by Self. Location: IC Latex allergy: Yes Tape allergy: No Current medications were reviewed with the patient:Yes Sleep aid taken by patient for the sleep study: [place] of sleep aid: Not Applicable Procedure was explained to the patient and all questions were answered. PAP treatment discussed and shown to patient: Yes Knowledge Program (KP): KP was not completed in [facility] by patient and accepted Study type: Polysomnogram Adverse Event: No (If yes create a new abstract) Comments: Patient was advised to follow up with their ordering provider regarding test results Amie Gr July 06, 2022 Standing PSG Orders signed in the last 90 days None Future PSG Orders signed in the last 90 days Ordered Auth. provider POLYSOMNOGRAM (PSG) [[id number]] 05/24/22 Ben Farr PA-C Assoc. diagnoses: Multiple sclerosis (HCC) [G35], Malaise and fatigue [R53.81, R53.83] Q: Indications - Select All That Apply: A: Obstructive sleep apnea (snoring, tiredness/fatigue/daytime sleepiness, behavior disturbance, craniofacial abnormality, tonsil hypertrophy) Q: Comorbidities: A: Cognitive or physical impairment Q: Is the patient non-ambulatory or will they be accompanied by a caregiver?: A: No Q: Current use of supplemental oxygen during sleep period?: A: No Q: Add supplemental oxygen if needed per sleep lab policy?: A: Yes Q: Is this a repeat Sleep Study?: A: No All Prior Sleep Studies (past 365 days) Some values may be hidden. Unless noted otherwise, only the newest values recorded on each date are displayed. Sleep Studies CONSULT TO SLEEP MEDICINE - ADULT Date: 06/13/22 POLYSOMNOGRAM (PSG) Future Expected: Expires: 05/24/23 BMI Readings from Last 2 Encounters: 05/24/22 : 24.02 kg/m 11/24/21 : 26.00 kg/m PAST MEDICAL HISTORY Diagnosis Date COVID 04/2020 Depression Endometriosis MS (multiple sclerosis) (HCC) The medical record was reviewed to determine if the proposed sleep study conforms to the AASM Practice Parameters for the Indications for Polysomnography and Related Procedures, or if the sleep study is indicated for other reasons. Indications for study: KLARISSA suspected with comorbid medical or sleep disorders: Neurologic diseases including neuromuscular disease or stroke Sleep study to be performed: Split Study-Polysomnogram with PAP titration Special instructions: Split night study if AHI > 15. Start with 5 cmH2O then titrate per protocol Target REM/supine sleep Add EtCO2 and Transcutaneous CO2 if available MS and Abnormally of breathing Aditi Sluga Sleep Medicine Staff Note: I have read the above protocol, edited as needed, and agree to the plan. Obinna Murillo III, PhD 4:21 PM, 07/06/2022 July 05, 2022 An order has been received for Polysomnogram (PSG) from Dr. Ben Farr,[place]. [facility] Staff. Visit prep complete. Comments :No The sleep study is scheduled for 07/23. Insurance: [facility] / [facility] / Product Type: Medicaid / Payer/Plan Subscr Sex Relation Sub. Ins. ID Effective Group Num 1. [employer]* JOSE L RAMOS 1970 Female Self [id number] 04/25/22 [address] Imelda Beltran documented in this encounter [facility] 07-06-2022 Note HNO ID: [id number] Author: Obinna Murillo III, PhD Service: ? Author Type: Physician Type: Progress Notes Filed: 07/24/2022 5:35 AM Note Text: July 06, 2022 Standing PSG Orders signed in the last 90 days None Future PSG Orders signed in the last 90 days Ordered Auth. provider POLYSOMNOGRAM (PSG) [[id number]] 05/24/22 Ben Farr PA-C Assoc. diagnoses: Multiple sclerosis (HCC) [G35], Malaise and fatigue [R53.81, R53.83] Q: Indications - Select All That Apply: A: Obstructive sleep apnea (snoring, tiredness/fatigue/daytime sleepiness, behavior disturbance, craniofacial abnormality, tonsil hypertrophy) Q: Comorbidities: A: Cognitive or physical impairment Q: Is the patient non-ambulatory or will they be accompanied by a caregiver?: A: No Q: Current use of supplemental oxygen during sleep period?: A: No Q: Add supplemental oxygen if needed per sleep lab policy?: A: Yes Q: Is this a repeat Sleep Study?: A: No All Prior Sleep Studies (past 365 days) Some values may be hidden. Unless noted otherwise, only the newest values recorded on each date are displayed. Sleep Studies CONSULT TO SLEEP MEDICINE - ADULT Date: 06/13/22 POLYSOMNOGRAM (PSG) Future Expected: Expires: 05/24/23 BMI Readings from Last 2 Encounters: 05/24/22 : 24.02 kg/m? 11/24/21 : 26.00 kg/m? PAST MEDICAL HISTORY Diagnosis Date COVID 04/2020 Depression Endometriosis MS (multiple sclerosis) (HCC) The medical record was reviewed to determine if the proposed sleep study conforms to the AASM Practice Parameters for the Indications for Polysomnography and Related Procedures, or if the sleep study is indicated for other reasons. Indications for study: KLARISSA suspected with comorbid medical or sleep disorders: Neurologic diseases including neuromuscular disease or stroke Sleep study to be performed: Split Study-Polysomnogram with PAP titration Special instructions: Split night study if AHI > 15. Start with 5 cmH2O then titrate per protocol Target REM/supine sleep Add EtCO2 and Transcutaneous CO2 if available MS and Abnormally of breathing Aditi Sluga Sleep [facility] Staff Note: I have read the above protocol, edited as needed, and agree to the plan. Obinna Murillo III, PhD 4:21 PM, 07/06/2022 [facility] 07-05-2022 Note HNO ID: [id number] Author: Imelda Beltran Service: ? Author Type: ? Type: Progress Notes Filed: 07/24/2022 5:35 AM Note Text: July 05, 2022 An order has been received for Polysomnogram (PSG) from Dr. Ben Farr,, a B. [facility] Staff. Visit prep complete. Comments :No The sleep study is scheduled for 07/23. Insurance: Payor: [place] MEDICAID / Plan: [facility] MEDICAID / Product Type: Medicaid / Payer/Plan Subscr Sex Relation Sub. Ins. ID Effective Group Num 1. [employer]* JOSE L RAMOS 1970 Female Self [id number] 04/25/22 [address] Imelda Beltran [facility] 06-19-2022 Miscellaneous Notes Source : electronic from pharmacy requesting refill. Delivery : e-script Requested Prescriptions Pending Prescriptions Disp Refills clonazePAM (KLONOPIN) 0.5 mg tablet [Pharmacy Med Name: CLONAZEPAM 0.5MG TAB 0.5 Tablet] 30 tablet 1 Sig: TAKE 1 TABLET BY MOUTH DAILY AT BEDTIME FOR SLEEP *DO NOT START BEFORE 05/21/2022* Patient last seen : 05/24/2022 Next Appointment : 11/30/2022 Ne Sabillon documented in this encounter [facility] 06-14-2022 Miscellaneous Notes Addended by: BEN FARR on: 06/14/2022 03:36 PM Modules accepted: Orders Called patient Identified by name and date of Reviewed recommendations Patient needs new provigil script sent to [facility] in [facility] instead of exact care Patient verbalized understanding and agrees with plan No further concerns I was contacted by sleep medicine physician regarding recent visit with patient. They recommended either increasing provigil to BID or starting nuvigil. We can start by increase provigil to BID. I will send over a new prescription. Please remind patient to keep PSG testing scheduled. With increased provigil dosing she should monitoring for HTN, DIAS, jitteriness, anxiety, trouble sleeping. She should not take 2nd dose later then 2 PM as it then may interfere with sleep. Ben Farr PA-C documented in this encounter [facility] 06-13-2022 Note HNO ID: [id number] Author: Adrianna Can MD Service: ? Author Type: Physician Type: Progress Notes Filed: 06/13/2022 3:55 PM Note Text: [facility] New Patient Evaluation I have communicated my name and active licensure. The patient's identity and physical location were verified at the time of this visit. Either the patient or their legal licensing representative has been informed of the risks and benefits of -- and alternatives to -- treatment through a remote evaluation and consents to proceed with the evaluation remotely. PATIENT NAME: Jose L Ramos DATE OF SERVICE: June 11, 2022 CONSULTING PROVIDER: Ben Farr [address] [facility] [address] REASON FOR CONSULT: Ben Farr sends the patient for an opinion about faitgue. My findings and recommendations will be transmitted electronically via shared medical record to the consulting provider. HPI: Jose L Ramos is a 51 year old female MS, Covid 19 long-hauler Sleep-related history: Being seen in [place] for MS, main complain is exhaustion. On provigil 200 mg In the past trouble falling asleep at wheel and started modafanil 200 mg; helps Difficulty with lethargy in am. 1 pm Afternoon becomes sleepy. Modafanil in am Meds of note: Citalopram 20 mg 1.5 in am for several years Klonopin 0.5 mg at bedtime Gabapentin 100 mg twice daily for for pain Modafanil 200 mg once in the morning Seeing Dr Cifuentes for CBTi. Mentionned possible KLARISSA SLEEP-WAKE SCHEDULE No set bedtime Bedtime: 11 PM. She does not have a hard time falling asleep. But depends onm activities. CALM Mg Wake time: 630 AM, with an alarm. After falling asleep: she wakes up 1 time(s) per night, because of the need to urinate. She does take naps. Frequency: daily, Duration: 20. Naps are somewhat refreshing. On weekends, sleep all day unless kids activities Average total sleep time (in a 24 hour period): 7 hours. SLEEP-RELATED DETAILS Preferred sleep position: back Breathing disturbances and other behaviors during sleep: unknown . Bruxism: No GERD or aspiration: No omeprazole Waking up with heart pounding or racing: yes Anxiety or rumination: No She does not report having an urge to move the legs in the evening (when resting) that is accompanied or caused by uncomfortable and/or unpleasant sensations in the legs. She has not been told that she has leg kicking during sleep. She denies any history of parasomnias. Excessive daytime sleepiness / fatigue is a problem. Excessive Daytime sleepiness/fatigue has been a problem for many years. There is no history of a viral illness or significant head injury prior to the start of daytime sleepiness. 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 [employer] She does have difficulty with memory or concentration. She denies falling asleep or dozing off when driving. Not since modafadanil She does drink 1 caffeinated beverages per day. She has lost 15 pounds since 2 yrs. Lab Results Component Value Date TSH 2.140 12/09/2020 SLEEP FUNCTIONAL OUTCOME MEASURES Patient-Entered Questionnaire Sleep Scores Sleep Questions 06/11/2022 Reason for visit: Excessive daytime sleepiness, Restless Legs Syndrome, Abnormal sleep/wake timing Average hours slept in 24 hours: 7 Accidents or near accidents due to drowsy drivin [place] Sleepiness Scale 06/28/2021 06/11/2022 Score 21 (severe daytime sleepiness) 19 (severe daytime sleepiness) PROMIS CAT Sleep Disturbance 06/28/2021 06/11/2022 PROMIS Sleep Disturbance T-Score 60 (mild) 57 (mild) Insomnia Severity Index 06/11/2022 Score 23 Restless Leg Syndrome 06/11/2022 Score 13 BEBA - 2/7 SCORES 09/10/2021 01/15/2022 02/24/2022 BEBA-2 Score 2 2 3 BEBA-7 Score 10 8 9 PHQ-9 02/07/2022 02/24/2022 05/24/2022 Score 14 19 14 PROMIS Global Health - (T-Scores - the mean of general population = 50. Five points is a clinically meaningful difference.) 01/02/2022 02/07/2022 05/24/2022 Physical T-Score 32.4 34.9 32.4 Mental T-Score 36.3 33.8 36.3 REVIEW OF SYSTEMS Negative except for above stated PAST MEDICAL HISTORY Diagnosis Date COVID 04/2020 Depression Endometriosis MS (multiple sclerosis) (HCC) PAST SURGICAL HISTORY Procedure Laterality Date LAPS ABD PRTMANDOMENTUM DX W/WO SPEC BR/WA SPX Laparoscopy ACTIVE PROBLEM LIST Ms (Multiple Sclerosis) (Hcc) Muscle Cramps Covid-19 Long Hauler Abnormality of Breathing Allergies As of Date: 06/13/2022 Allergen Noted Reaction BIAXIN [CLARITHROMYCIN] 10/29/2016 Hives, Swelling, and Other: See Comments ULTRAM [TRAMADOL HCL] 05/10/2010 Mental Status Change MELOXICAM 12/19/2020 Diarrhea and Vomiting PENICILLINS 05/10/2010 Rash VEETIDS [PENICILLIN V] 09/28/2019 Mental Status Change and Other: See Comments Fully Assessed 06/13/2022 CURRENT MEDICATIONS: citalop (more content not included)... [facility] 06-13-2022 Instructions Adrianna Can MD - 06/13/2022 3:53 PM EDT [email or web address] documented in this encounter [facility] 06-13-2022 History of Present illness Narrative Images from the original note were not included. [facility] New Patient Evaluation I have communicated my name and active licensure. The patient's identity and physical location were verified at the time of this visit. Either the patient or their legal licensing representative has been informed of the risks and benefits of -- and alternatives to -- treatment through a remote evaluation and consents to proceed with the evaluation remotely. PATIENT NAME: Jose L Ramos DATE OF SERVICE: June 11, 2022 CONSULTING PROVIDER: Ben Farr [address] [facility] [address] REASON FOR CONSULT: Ben Farr sends the patient for an opinion about faitgue. My findings and recommendations will be transmitted electronically via shared medical record to the consulting provider. HPI: Jose L Ramos is a 51 year old female MS, Covid 19 long-hauler Sleep-related history: Being seen in [place] for MS, main complain is exhaustion. On provigil 200 mg In the past trouble falling asleep at wheel and started modafanil 200 mg; helps Difficulty with lethargy in am. 1 pm Afternoon becomes sleepy. Modafanil in am Meds of note: Citalopram 20 mg 1.5 in am for several years Klonopin 0.5 mg at bedtime Gabapentin 100 mg twice daily for for pain Modafanil 200 mg once in the morning Seeing Dr Cifuentes for CBTi. Mentionned possible KLARISSA SLEEP-WAKE SCHEDULE No set bedtime Bedtime: 11 PM. She does not have a hard time falling asleep. But depends onm activities. CALM Mg Wake time: 630 AM, with an alarm. After falling asleep: she wakes up 1 time(s) per night, because of the need to urinate. She does take naps. Frequency: daily, Duration: 20. Naps are somewhat refreshing. On weekends, sleep all day unless kids activities Average total sleep time (in a 24 hour period): 7 hours. SLEEP-RELATED DETAILS Preferred sleep position: back Breathing disturbances and other behaviors during sleep: unknown . Bruxism: No GERD or aspiration: No omeprazole Waking up with heart pounding or racing: yes Anxiety or rumination: No She does not report having an urge to move the legs in the evening (when resting) that is accompanied or caused by uncomfortable and/or unpleasant sensations in the legs. She has not been told that she has leg kicking during sleep. She denies any history of parasomnias. Excessive daytime sleepiness / fatigue is a problem. Excessive Daytime sleepiness/fatigue has been a problem for many years. There is no history of a viral illness or significant head injury prior to the start of daytime sleepiness. 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 [employer] She does have difficulty with memory or concentration. She denies falling asleep or dozing off when driving. Not since modafadanil She does drink 1 caffeinated beverages per day. She has lost 15 pounds since 2 yrs. Lab Results Component Value Date TSH 2.140 12/09/2020 SLEEP FUNCTIONAL OUTCOME MEASURES Patient-Entered Questionnaire Sleep Scores Sleep Questions 06/11/2022 Reason for visit: Excessive daytime sleepiness, Restless Legs Syndrome, Abnormal sleep/wake timing Average hours slept in 24 hours: 7 Accidents or near accidents due to drowsy drivin [place] Sleepiness Scale 06/28/2021 06/11/2022 Score 21 (severe daytime sleepiness) 19 (severe daytime sleepiness) PROMIS CAT Sleep Disturbance 06/28/2021 06/11/2022 PROMIS Sleep Disturbance T-Score 60 (mild) 57 (mild) Insomnia Severity Index 06/11/2022 Score 23 Restless Leg Syndrome 06/11/2022 Score 13 BEBA - 2/7 SCORES 09/10/2021 01/15/2022 02/24/2022 BEBA-2 Score 2 2 3 BEBA-7 Score 10 8 9 PHQ-9 02/07/2022 02/24/2022 05/24/2022 Score 14 19 14 PROMIS Global Health - (T-Scores - the mean of general population = 50. Five points is a clinically meaningful difference.) 01/02/2022 02/07/2022 05/24/2022 Physical T-Score 32.4 34.9 32.4 Mental T-Score 36.3 33.8 36.3 REVIEW OF SYSTEMS Negative except for above stated PAST MEDICAL HISTORY Diagnosis Date COVID 04/2020 Depression Endometriosis MS (multiple sclerosis) (FORMERLY [facility]) PAST SURGICAL HISTORY Procedure Laterality Date LAPS ABD PRTM&OMENTUM DX W/WO SPEC BR/WA SPX Laparoscopy ACTIVE PROBLEM LIST Ms (Multiple Sclerosis) (Formerly [facility]) Muscle Cramps Covid-19 Long Hauler Abnormality of Breathing Allergies As of Date: 06/13/2022 Allergen Noted Reaction BIAXIN [CLARITHROMYCIN] 10/29/2016 Hives, Swelling, and Other: See Comments ULTRAM [TRAMADOL HCL] 05/10/2010 Mental Status Change MELOXICAM 12/19/2020 Diarrhea and Vomiting PENICILLINS 05/10/2010 Rash VEETIDS [PENICILLIN V] 09/28/2019 Mental Status Change and Other: See Comments Fully Assessed 06/13/2022 CURRENT MEDICATIONS: citalopram (CELEXA) 20 mg tablet TAKE 1 & 1/2 TABLETS BY MOUTH ONCE DAILY ORILISSA 150 mg tablet Take 150 mg by mouth once daily. TECFIDERA [address] Take 1 capsule (240 mg) by mouth twice daily. modafinil (PROVIGIL) 200 mg tablet Take 1 tablet by mouth once daily for 181 days. naproxen (NAPROSYN) 375 mg tablet TAKE 1 TABLET BY MOUTH TWICE DAILY WITH MEALS NEEDED gabapentin (NEURONTIN) 100 mg capsule TAKE 1 CAPSULE BY MOUTH IN THE MORNING &TAKE 2 CAPSULES AT BEDTIME clonazePAM (KLONOPIN) 0.5 mg tablet TAKE 1 TABLET BY MOUTH DAILY AT BEDTIME NEEDED FOR SLEEP *START DATE: 12-21-21* Do not start before May 21, 2022. aspirin (ASPIR-81 ORAL) Take by mouth. MEDICATION, NON-DATABASE probiotic Apr 03, 2016 .5 mg 1 D3 Sep 06, 2010 MS 5400 IU 1 cranberry May 15, 2017 urinary pain 4200 mg 2 E May 04, 2015 tender breasts 180 mg 1 B Sep 06, 2010 Energy 250 mcg fluticasone (FLONASE) 50 mcg/actuation nasal spray Use 1 [place] in each nostril once daily. omeprazole (PRILOSEC) 20 mg capsule Take 20 mg by mouth once daily. OTC PRODUCT Take 1 Dose by mouth daily at bedtime. Natural Vitality magnesium supplement. 1/2 - 1 tsp powder dissolved in liquid. cranberry conc-ascorbic acid 4,200-20 mg cap Take by mouth. 4 capsules daily loratadine/pseudoephedrine (CLARITIN-D 12 HOUR ORAL) Take 10 mg by mouth once daily. SODIUM CHLORIDE (SALINE NASAL NASAL) Use 1 Squirt in the nose twice daily. Cholecalciferol, Vitamin D3, (VITAMIN D) 1,000 unit cap Take 2 capsules by mouth once daily. VITAMIN E ORAL Take by mouth once daily. LACTOBACILLUS ACIDOPHILUS (PROBIOTIC ORAL) Take by mouth once daily. cyanocobalamin 1,000 mcg tab Take 1 tablet by mouth once daily. SOCIAL HISTORY Social History Tobacco Use Smoking status: Never Smokeless tobacco: Never Vaping Use Vaping Use: Never used Substance Use Topics Alcohol use: Yes Comment: 1 time a week Drug use: No FAMILY HISTORY FAMILY HISTORY Problem Relation Age of Onset Cataract Mother Hypertension Father Heart Maternal Grandmother Cancer Maternal Grandmother Cancer Paternal Grandmother other (inetaderma) Other like scleraderma, but external There is no family history of sleep disorders. PHYSICAL EXAMINATION: Vital Signs: There were no vitals filed for this visit. Estimated body mass index is 24.02 kg/m as calculated from the following: Height as of 05/24/22: 172.7 cm (5' 8 ). Weight as of 05/24/22: 71.7 kg (158 lb). PHYSICAL EXAM: General appearance: WD WN NAD Mental status: AOx3 Neck: No goiter visible Constitutional: NL Skin: NL Eyes: NL ENT : Nasal congestion present, Nasal valve incompetence present. Posterior airspace: Carnes tongue position 2, retrognathia present. Overbite absent. High arched palate absent. Tongue scalloping/ridging absent. Uvula: nl. Dentition:nl Neuro: Nl CN, no tremors Psych: Nl mood and affect IMPRESSION/PLAN: Jose L Ramos is a 51 year old female MS, Covid 19 long-hauler Who presents with daytime sleepiness, history of snoring. . No REM intrusion sxs (although on celexa). Sleepiness in afternoon once am modafanil wears off. No afternoon dosage PSG already on schedule to look for sleep disordered breathing or PLMs. MSLT: ideally would wean off celexa, klonopin, modafanil, gabapentin: however concern for narcolepsy is low; and already on modafanil Would recommend either increasing modafanil to twice daily dosing vs armodafanil starting at 150 mg in the morning, and increaing to 250 mg if needed. She has asked that neurology keep prescribing if possible. Will message her neurology team. Track sleep diaries for 2 weeks and upload for review F/u post sleep study in results clinic MD Adrianna Beltran MD documented in this encounter [facility] 05-24-2022 Note HNO ID: [id number] Author: Nilda Stafford, DO Service: ? Author Type: Physician Type: Progress Notes Filed: 05/26/2022 3:47 PM Note Text: [facility] FOLLOWUP/ESTABLISHED PATIENT VISIT PRINCIPAL NEUROLOGIC DIAGNOSIS: Multiple Sclerosis DISEASE SUMMARY Date of onset: 2007 Date of diagnosis of MS: 2010 Disease course at onset: Relapsing-Remitting Current disease course: Relapsing-Remitting Previous disease therapies: - Avonex - Aubagio (03/2013 - 06/2015) - recurrent sinus infection Current disease therapy: Tecfidera (08/2016-Current) Most recent MRI brain: 05/24/2022; 05/19/2021 (stable) Most recent MRI cervical spine: 01/03/2015 CHIEF COMPLAINT: Follow-up on MS disease modifying therapy INTERVAL HISTORY: Usual treating team: Aicha/Sulema The patient is accompanied by friend. The patient was last seen 11/24/2021, currently taking Tecfidera. Since the patient's last visit the patient reports overall feeling stable. Issues with current therapy: Tolerating medication without side effects. No new neurological symptoms. Fatigue is severe, continues. Provigil is helpful, but still very tired. Recurrent infections, has been sick constantly for the past 1-2 months with URI. Recently finished Abx for bronchitis and sinus infection. Does have allergies, receives allergy infections. She completed FCE on 01/03/22. She completed NPE on 02/20/22. She has applied for SSDI, spoke with our group social worker regarding this. Disability is still pending. She continues to work 15 hours/week for [employer]. ROS: Mood: on celexa, was seeing health psychology, last appt was 02/2022 Bladder: no change Bowel: Normal Fatigue: Severe, taking provigil 200mg which is helpful, but still very tired Sleep: poor, takes klonopin, snores minimally, hasnt completed sleep study Neuro-QoL Functions (higher=better functioning) Flowsheet Row Office Visit from 05/24/2022 in [facility] Appointment from 02/09/2022 in [facility] Office Visit from 11/24/2021 in [facility] Upper Extremity Domain T Score 49 41 57 Lower Extremity Domain T Score 50 48 50 Cognitive Function Domain T Score 29 31 31 Positive Affect Well Being T Score -- -- -- Ability To Participate In Social Roles T Score 38 37 38 Satisfaction With Social Roles T Score 39 36 38 Neuro-QoL Symptoms (higher=worse symptoms) Flowsheet Row Office Visit from 05/24/2022 in [facility] Health from 03/01/2022 in Psychology Appointment from 02/09/2022 in [facility] Sleep Domain T Score 65 -- 62 Fatigue Domain T Score 65 -- 69 Anxiety Domain T Score 59 -- 62 Depression Domain T Score 57 57 57 Stigma Domain T Score 58 -- 60 Emotional Behavior Dyscontrol T Score -- -- -- has a past medical history of COVID (04/2020), Depression, Endometriosis, and MS (multiple sclerosis) ([facility]LY [facility]). She has no past medical history of Atrial fibrillation ([facility]), Cancer ([facility]), Chronic obstructive pulmonary disease (COPD) ([facility]), Chronic renal insufficiency, Congestive heart failure ([facility]), Coronary artery disease, Diabetes ([facility]), Epilepsy ([facility]), Hypertension, Obstructive sleep apnea, Steroid long-term use, Stroke ([facility]), or Substance abuse ([facility]). has a current medication list which includes the following prescription(s): citalopram, orilissa, gabapentin, clonazepam, tecfidera, modafinil, naproxen, aspirin, MEDICATION, NON-DATABASE, fluticasone, omeprazole, OTC PRODUCT, cranberry conc-ascorbic acid, loratadine/pseudoephedrine, sodium chloride, cholecalciferol (vitamin d3), vitamin e, lactobacillus acidophilus, and cyanocobalamin. EXAM: BP 116/80 Pulse 71 Ht 172.7 cm (5' 8 ) Wt 71.7 kg (158 lb) LMP 11/15/2021 (Approximate) BMI 24.02 kg/m? Multiple Sclerosis Performance Test Flowsheet Row Office Visit from 11/24/2021 in [facility] Office Visit from 05/19/2021 in [facility] Processing Speed Total Number Correct 51 53 Low-contrast letter acuity test-2.5 percent opacity 27 36 Low-contrast letter acuity test-100 percent opacity 58 59 Dominant hand -- -- MDT Left Hand Time 22.81 25.02 MDT Right Hand Time 19.32 21.43 Walking Speed Test (25 feet) 4.32 5.2 General Appearance: well appearing, in no acute distress Mental status evaluation during the interview and examination showed Reported difficulties: memory word finding concentration / attention Affect: Normal Facial movements: Intact bilaterally Speech: normal Muscle strength (#/5): Grossly intact Standing balance: Normal Standard gait: normal. Assistive device: independent RESULTS: CBC + Diff Component Value Date WBC 5.09 11/24/2021 HB 12.7 11/24/2021 HCT 37.8 11/24/2021 PLT 276 11/24/2021 ABSLYMPH 1.04 11/24/2021 CMP Component Value Date AST 18 11/24/2021 GLUC 83 11/24/2021 BUN 11 11/24/2021 CREAT 0.66 11/24/2021 NA 137 11/24/2021 K 4.9 11/24/2021 CHLOR 101 11/24/2021 ALT 16 11/24/2021 MRI Results: Discrete MRI Results Component Valu (more content not included)... [facility] 05-24-2022 History of Present illness Narrative Images from the original note were not included. [facility] FOLLOWUP/ESTABLISHED PATIENT VISIT PRINCIPAL NEUROLOGIC DIAGNOSIS: Multiple Sclerosis DISEASE SUMMARY Date of onset: 2007 Date of diagnosis of MS: 2010 Disease course at onset: Relapsing-Remitting Current disease course: Relapsing-Remitting Previous disease therapies: - Avonex - Aubagio (03/2013 - 06/2015) - recurrent sinus infection Current disease therapy: Tecfidera (08/2016-Current) Most recent MRI brain: 05/24/2022; 05/19/2021 (stable) Most recent MRI cervical spine: 01/03/2015 CHIEF COMPLAINT: Follow-up on MS disease modifying therapy INTERVAL HISTORY: Usual treating team: Aicha/Sulema The patient is accompanied by friend. The patient was last seen 11/24/2021, currently taking Tecfidera. Since the patient's last visit the patient reports overall feeling stable. Issues with current therapy: Tolerating medication without side effects. No new neurological symptoms. Fatigue is severe, continues. Provigil is helpful, but still very tired. Recurrent infections, has been sick constantly for the past 1-2 months with URI. Recently finished Abx for bronchitis and sinus infection. Does have allergies, receives allergy infections. She completed FCE on 01/03/22. She completed NPE on 02/20/22. She has applied for SSDI, spoke with our group social worker regarding this. Disability is still pending. She continues to work 15 hours/week for [employer]. ROS: Mood: on celexa, was seeing health psychology, last appt was 02/2022 Bladder: no change Bowel: Normal Fatigue: Severe, taking provigil 200mg which is helpful, but still very tired Sleep: poor, takes klonopin, snores minimally, hasnt completed sleep study Neuro-QoL Functions (higher=better functioning) Flowsheet Row Office Visit from 05/24/2022 in [facility] Appointment from 02/09/2022 in [facility] Office Visit from 11/24/2021 in [facility] Upper Extremity Domain T Score 49 41 57 Lower Extremity Domain T Score 50 48 50 Cognitive Function Domain T Score 29 31 31 Positive Affect Well Being T Score -- -- -- Ability To Participate In Social Roles T Score 38 37 38 Satisfaction With Social Roles T Score 39 36 38 Neuro-QoL Symptoms (higher=worse symptoms) Flowsheet Row Office Visit from 05/24/2022 in [facility] Distance Health from 03/01/2022 in Psychology Appointment from 02/09/2022 in [facility] Sleep Domain T Score 65 -- 62 Fatigue Domain T Score 65 -- 69 Anxiety Domain T Score 59 -- 62 Depression Domain T Score 57 57 57 Stigma Domain T Score 58 -- 60 Emotional Behavior Dyscontrol T Score -- -- -- has a past medical history of COVID (04/2020), Depression, Endometriosis, and MS (multiple sclerosis) ([facility]). She has no past medical history of Atrial fibrillation ([facility]), Cancer ([facility]), Chronic obstructive pulmonary disease (COPD) ([facility]), Chronic renal insufficiency, Congestive heart failure ([facility]), Coronary artery disease, Diabetes ([facility]), Epilepsy ([facility]), Hypertension, Obstructive sleep apnea, Steroid long-term use, Stroke ([facility]), or Substance abuse ([facility]). has a current medication list which includes the following prescription(s): citalopram, orilissa, gabapentin, clonazepam, tecfidera, modafinil, naproxen, aspirin, MEDICATION, NON-DATABASE, fluticasone, omeprazole, OTC PRODUCT, cranberry conc-ascorbic acid, loratadine/pseudoephedrine, sodium chloride, cholecalciferol (vitamin d3), vitamin e, lactobacillus acidophilus, and cyanocobalamin. EXAM: BP 116/80 Pulse 71 Ht 172.7 cm (5' 8 ) Wt 71.7 kg (158 lb) LMP 11/15/2021 (Approximate) BMI 24.02 kg/m Multiple Sclerosis Performance Test Flowsheet Row Office Visit from 11/24/2021 in [facility] Office Visit from 05/19/2021 in [facility] Processing Speed Total Number Correct 51 53 Low-contrast letter acuity test-2.5 percent opacity 27 36 Low-contrast letter acuity test-100 percent opacity 58 59 Dominant hand -- -- MDT Left Hand Time 22.81 25.02 MDT Right Hand Time 19.32 21.43 Walking Speed Test (25 feet) 4.32 5.2 General Appearance: well appearing, in no acute distress Mental status evaluation during the interview and examination showed Reported difficulties: memory word finding concentration / attention Affect: Normal Facial movements: Intact bilaterally Speech: normal Muscle strength (#/5): Grossly intact Standing balance: Normal Standard gait: normal. Assistive device: independent RESULTS: CBC + Diff Component Value Date WBC 5.09 11/24/2021 HB 12.7 11/24/2021 HCT 37.8 11/24/2021 PLT 276 11/24/2021 ABSLYMPH 1.04 11/24/2021 CMP Component Value Date AST 18 11/24/2021 GLUC 83 11/24/2021 BUN 11 11/24/2021 CREAT 0.66 11/24/2021 NA 137 11/24/2021 K 4.9 11/24/2021 CHLOR 101 11/24/2021 ALT 16 11/24/2021 MRI Results: Discrete MRI Results Component Value Date Brain New T2 Lesions None 05/19/2021 Brain Enhancing Lesions None 05/19/2021 ASSESSMENT: Jose L Ramos is a 51 year old female with RRMS on tecfidera (requires brand name) which she tolerates well. No new neurological symptoms. Continues to struggle with severe fatigue, memory concerns, mood, imbalance and sleep difficulties. She did complete FCE & NPE Fall 2021 and applied for disability which is pending. Will consult sleep medicine and obtain PSG for ongoing sleep and fatigue issues. Will consult psychiatry for assessment of possible ADHD per NPE recommendation. Will reassess need for klonopin and provigil after sleep medicine and psychiatry consults. Todays brain MRI reviewed and appears stable, formal report is pending. Due for lab monitoring today. PLAN: -Continue Tecfidera (brand name, had reaction when on generic tecfidera) -Brain MRI 05/2023 -CBC & CMP labs today -Sleep study & sleep medicine consult -Consult psychiatry (ADHD assessment per NPE recommendation) -Continue provigil for MS fatigue -Continue klonopin for sleep -Follow up in 6 months with Chitra via virtual or in person visit Patient Health Education Discussed at Visit: Emotional Health/Wellness, Stress management, and Stretching I spent a total of 45 minutes on the date of the service which included preparing to see the patient, [id number] patient care, completing clinical documentation, counseling and educating the patient/family/caregiver, ordering medications, tests, or procedures, and communicating results to the patient/family/caregiver. The patient was seen together with Dr. Stafford. Ben Farr PA-C [facility] for Multiple Sclerosis [facility] STAFF PHYSICIAN NOTE OF PERSONAL INVOLVEMENT IN CARE I have reviewed the follow-up note obtained and documented by the advanced practice provider and I personally participated in the [place] components and have answered all the patient's questions. Jose L Ramos has several ongoing symptomatic concerns agree with plan above. Nilda Stafford D.O. [facility] Staff documented in this encounter [facility] 05-21-2022 Miscellaneous Notes Source : electronic from pharmacy requesting refill. Delivery : e-script Requested Prescriptions Pending Prescriptions Disp Refills citalopram (CELEXA) 20 mg tablet [Pharmacy Med Name: CITALOPRAM 20MG TABLET 20 Tablet] 45 tablet 10 Sig: TAKE 1 & 1/2 TABLETS BY MOUTH ONCE DAILY DX : Patient last seen 11/24/2021 Next Appointment : 05/24/2022 ROBER Burns documented in this encounter [facility] 04-20-2022 Miscellaneous Notes Source : electronic from pharmacy requesting refill. Delivery : e-script Requested Prescriptions Pending Prescriptions Disp Refills clonazePAM (KLONOPIN) 0.5 mg tablet [Pharmacy Med Name: CLONAZEPAM 0.5 MG TAB 0.5 Tablet] 30 tablet 1 Sig: TAKE 1 TABLET BY MOUTH DAILY AT BEDTIME NEEDED FOR SLEEP *START DATE: 12-21-21* DX : Patient last seen 11/24/2021 Next Appointment : 05/24/2022 ROBER Burns documented in this encounter [facility] 03-29-2022 Note HNO ID: [id number] Author: Sydney East Service: ? Author Type: ? Type: Progress Notes Filed: 04/12/2022 11:43 AM Note Text: Please call patient at #[phone] once approved. She needs to know when this is approved or denied. Trying to get her med. [facility] 03-29-2022 History of Present illness Narrative Please call patient at #[phone] once approved. She needs to know when this is approved or denied. Trying to get her med. Jose L Wendi ([place]: [id number]) - [phone] Requested by: Other - [employer] Medication Requested: Tecfidera Insurance Name: [employer] PA phone #: Status APPROVED 04/05/2022-04/04/2023 documented in this encounter [facility] 03-28-2022 Note HNO ID: [id number] Author: ROBER Burns Service: ? Author Type: Health Composite Assembler Type: Progress Notes Filed: 04/12/2022 11:43 AM Note Text: Jose L Wendi ([place]: [id number]) - [id number] Requested by: Other - [employer] Medication Requested: Tecfidera Insurance Name: [employer] PA phone #: Status APPROVED 04/05/2022-04/04/2023 [facility] 02-28-2022 History of Present illness Narrative FOLLOW-UP: Jose L Ramos is a 51 year old adult female was referred to [employer] via Nilda Stafford DO for the following reason: disability planning PERSONS INTERVIEWED: patient Visit was conducted via [facility] with limits to confidentiality agreed upon. PRINCIPAL NEUROLOGIC DIAGNOSIS: Date of diagnosis of MS: 2010 Recent symptom(s): Pt reported fatigue , numbness and tingling. IDENTIFIED PROBLEMS/NEEDS: Disability Intervention/Referral to be Provided:Arrangements made for continuity of care PATIENT PROVIDED BACKGROUND LIVING SITUATION: Lives at home with her teenage children. SOCIAL SUPPORTS:Pt has support from her mother. 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 DPOA health: No DPOA finance: No Guardian: No Is patient a ?: No DISCUSSION/SUMMARY: Patient expressed concern about continuing to work versus applying for disability. She is currently working part-time 15 to 20 hours/week at the [employer]. She states she is mostly on the computer however has much fatigue numbness spasticity and pain in her arms and legs. She stated her children are older teenagers and can help her when needed. She stated she cannot drive very far due to the fatigue and pain. She does not use any mobility devices. 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 Patient stated she is not receiving gainful employment and would like to fill out the application for SSDI. We discussed the SSDI process again and I answered questions about the application. She is aware to contact me with any further social work needs or concerns. IMPRESSION: Pleasant 51 year old patient. Pt is independent with ADL's and independent with IADL's. Pt appeared able and motivated to follow up on recommendations as discussed. -Follow up as needed. Short Order Cook will remain available to address any questions/concerns. Short Order Cook's contact information was provided. I spent a total of 45 minutes with the patient Social work assessment/interventions rendered under the supervision of Dr. Katrina Mera, PhD, LAZARUS-Sherri. Samreen Hopkins [facility] Projects Manager documented in this encounter [facility] 02-20-2022 History of Present illness Narrative [facility] Neurological [place] Section of Neuropsychology Neuropsychological Evaluation Report CONFIDENTIAL PATIENT NAME: Jose L Ramos DATE OF : 1970 DATE OF SERVICE: 02/20/2022 REFERRAL SOURCE: Ben Farr PA-C REFERRAL: Ms. Jose L Ramos is a 51 year old female with relapsing-remitting multiple sclerosis who was referred for neuropsychological assessment due to cognitive concerns impacting her ability to work. Briefly, she was diagnosed with MS in 2010, though her symptoms onset around 2007. She is on Tecfidera. Most recent brain MRI (05/19/21) was stable, showing mild T2 lesion burden and parenchymal volume loss. She was referred for this evaluation after completing a functional capacity evaluation which suggested significant occupational limitations due to severe fatigue and cognitive dsyfunction. The results will be communicated back to the referral source via shared electronic medical record. [facility] PRESENTING CONCERNS: The patient was accompanied to this evaluation by her father who was present for the patient interview. Upon interview, Ms. Ramos and her father both report concerns regarding longstanding attentional/organizational issues, which began in childhood, and have been exacerbated in the context of MS. Her greatest current concerns include word finding difficulties, word substitutions, poor concentration, problems following multi-step instructions, and delayed recall of information. Her father notices that she has increased difficulty with concentration, and that she loses her train of thought and forgets what she is talking about. 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 Her roofing plant supervisor has noticed a decline in her functioning at work. Ms. Ramos specifically reports getting distracted easily, difficulty remembering how to use certain computer programs, and forgetting what she had been working on days before. She gets very fatigued and can't concentrate a few hours. Mood is down. She also feels anxious. She started taking an antidepressant around the time of her MS diagnosis but this worsened when going through a divorce. She feels that she covers up her symptoms well around others. Sleep is variable and can be negatively impacted by pain, difficulty falling asleep due to anxiety, etc. She averages less than 6 hours of sleep per night. 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 [employer]: ; lives with her parents since 2019; she has two children Psychiatric History: depression Substance use: none reported Family history: Alzheimer's disease (grandmother), dementia (grandmother) Behavioral Observations Mood: depressed and anxious Affect: restricted Speech: fluent Comprehension: good Thought processes: logical Motor: normal Behavior: cooperative, appeared very fatigued at the end of the evaluation Validity: formal validity measures were within normal limits; results are considered to provide an accurate representation of her current cognitive abilities RESULTS Descriptors used correspond to the following ranges of Standard Scores (Mean = 100; SD = 15): Very Superior (130+), Superior (120-129), High Average (110-119), Average (90-109), Low Average (80-89), Moderately Low (70-79), Extremely Low (<70) Premorbid: Longstanding general level of ability is estimated in the average range based on a test of single word reading. Attention: Auditory attention span was low average. Auditory working memory was low average to average. Performance on a complex, speeded working memory test was low average to average.Sustained visual attention was within normal limits across indices. Processing Speed: Visual scanning and sequencing was low average. On a decoding test, visuomotor speed was average and oral speed was low average. Executive Functions: Ability to shift and maintain cognitive set was average. Letter fluency was low average.Problem solving was intact overall (6/6 categories completed) but notable for two set loss errors (moderately low). Language:Confrontation naming was intact. Category fluency was average. Visuospatial:Copies of simple and complex geometric shapes were within normal limits. Motor free visuoperception was moderately low. Learning/memory: Immediate and delayed free recall of a display of shapes were average with intact recognition. Total immediate recall of a word list was superior with high average delayed free recall and average recognition. Mood: The patient endorsed severe symptoms of depression and anxiety on self-report screening measures. She also endorsed clinically significant symptoms of fatigue. IMPRESSIONS: Ms. Jose L Ramos is a 51 year old female with MS who was seen for this neuropsychological evaluation due to cognitive difficulties impacting her ability to work. Results of this evaluation revealed that Ms. Ramos's longstanding general abilities have likely been in the average range, and her scores on cognitive tests were largely intact within that context. However, she exhibited weaknesses (low average performances) in aspects of attention, executive functions, and processing speed, and an isolated impairment in visuoperception, which likely reflect declines relative to her baseline. Her cognitive profile was observed in the context of severe symptoms of depression and anxiety, and clinically significant fatigue. Overall, results of this evaluation revealed a few weaknesses which are nonspecific, but are consistent with her report of day-to-day difficulties. Though her weaknesses were quite mild on testing, I suspect that these results underestimate her day-to-day challenges given the structured and distraction-free nature of the evaluation. Her cognitive difficulties are likely to be more salient in the context of stress and with exacerbations of fatigue and depression. As above, results are nonspecific and this pattern of weaknesses can be observed in a number of etiologies. In this case, I suspect major contribution from emotional distress and fatigue superimposed on a history of longstanding (but undiagnosed) attentional and learning weaknesses. Further contribution from MS is also possible, though the observed findings do not necessarily extend beyond what would be expected given the aforementioned factors. RECOMMENDATIONS: In regards to occupational ability, her cognitive weaknesses are likely to have at least some negative impact on her functioning, though I suspect greater contribution from severe fatigue, depression, and anxiety. Thus, though she likely does not meet SSDI criteria on the basis of cognitive factors alone, there are a number of other likely contributing factors which will have a meaningful impact on her functioning in this regard. Aggressive treatment of psychological factors will be important and may have a positive impact on her cognitive and functional abilities. I encourage her to continue working with our psychology team. She may also be a good candidate for an IOP program. Longstanding weaknesses could represent undiagnosed ADHD, though assessment of this possibility is beyond the scope of this evaluation. She may consider discussing further workup and treatment with her providers. This evaluation serves as a useful baseline against which future comparisons can be made. I would be happy to re-evaluate her to inform treatment and update recommendations as needed. Thank you for referring this patient to our service. Please feel free to contact me if you have any questions regarding this report or my recommendations. Roxana Alexis, Ph.D., [facility] Board Certified Clinical Neuropsychologist Clinical interview with patient/collateral, test interpretation, report, feedback by neuropsychologist: 3 hours Test administration by stripping shovel oiler: 4.5 hours documented in this encounter [facility] 02-09-2022 History of Present illness Narrative FOLLOW-UP: Jose L Ramos is a 51 year old adult female was referred to [facility] via Nilda Stafford DO for the following reason: disability planning PERSONS INTERVIEWED: patient Visit was conducted via [employer] Zoom with limits to confidentiality agreed upon. PRINCIPAL NEUROLOGIC DIAGNOSIS: Date of diagnosis of MS: 2010 Recent symptom(s): Pt reported fatigue , numbness and tingling. IDENTIFIED PROBLEMS/NEEDS: Disability Intervention/Referral to be Provided:Arrangements made for continuity of care PATIENT PROVIDED BACKGROUND LIVING SITUATION: Lives at home with her teenage children. SOCIAL SUPPORTS:Pt has support from her mother. 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 DPOA health: No DPOA finance: No Guardian: No Is patient a ?: No DISCUSSION/SUMMARY: Patient expressed concern about continuing to work versus applying for disability. She is currently working part-time 15 to 20 hours/week at the [employer]. She states she is mostly on the computer however has much fatigue numbness spasticity and pain in her arms and legs. She stated her children are older teenagers and can help her when needed. She stated she cannot drive very far due to the fatigue and pain. She does not use any mobility devices. 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 She stated she would like to consider disability as she is unsure if she can continue to work. Patient stated she decided she is no longer going to be able to work and gave her employer at 8 to quit working. She had additional questions regarding the SSDI application which I was able to answer. She stated she will update me and let me know any progress with the application. Pleasant 51 year old patient. Pt is independent with ADL's and independent with IADL's. Pt appeared able and motivated to follow up on recommendations as discussed. -Follow up as needed. Short Order Cook will remain available to address any questions/concerns. Short Order Cook's contact information was provided. I spent a total of 40 minutes with the patient Social work assessment/interventions rendered under the supervision of Dr. Katrina Mera, PhD, [facility] Projects Manager documented in this encounter [facility] 02-05-2022 Instructions Joanie Plaza, OD - 02/05/2022 2:38 PM EST Use Systane or Refresh preservative free tears 3-4 times daily Use Refresh or Systane gel nightly in both eyes documented in this encounter [facility] 02-05-2022 History of Present illness Narrative 1. Dry eye syndrome of both eyes Continue artificial tears 3-4 times daily Can also use gel nightly before bedtime 2. Regular astigmatism of both eyes 3. Presbyopia Finalized spec rx-no change Joanie Plaza, OD February 05, 2022 2:35 PM documented in this encounter [facility] 01-19-2022 Miscellaneous Notes Summary: appointment lvm for patient to call so we can get her scheduled for her neuro testing consult documented in this encounter [facility] 01-17-2022 Miscellaneous Notes Source : electronic from pharmacy requesting refill. Delivery : e-script Requested Prescriptions Pending Prescriptions Disp Refills TECFIDERA 240 mg capsule [Pharmacy Med Name: TECFIDERA 240 MG CAPSULE DELAYED RELEASE] 60 capsule 0 Sig: TAKE 1 CAPSULE (240 MG) BY MOUTH TWICE DAILY. DX : Patient last seen : 11/24/2021 Next Appointment : 05/24/2022 Chaka Smallwood documented in this encounter [facility] 01-03-2022 History of Present illness Narrative Medication Requested: tecfidera Insurance Name: troy Mckeon WIL phone #: Status Pending documented in this encounter [facility] 01-02-2022 History of Present illness Narrative Ot documented in this encounter [facility] 12-06-2021 Miscellaneous Notes Source : mychart from pharmacy requesting refill. Delivery : e-script Requested Prescriptions Pending Prescriptions Disp Refills clonazePAM (KLONOPIN) 0.5 mg tablet [Pharmacy Med Name: CLONAZEPAM 0.5 MG TABS 0.5 Tablet] 30 tablet 1 Sig: TAKE 1 TABLET BY MOUTH DAILY AT BEDTIME NEEDED FOR SLEEP Patient last seen 11/24/21 Next Appointment : 05/24/22 Macie Deutsch documented in this encounter [facility] 12-06-2021 Miscellaneous Notes Per last OV note: 11/24/21: She continues to struggle with significant fatigue, unsure how much related to MS vs long haulers COVID, likely both. Will continue provigil. documented in this encounter [facility] 12-05-2021 History of Present illness Narrative REFERRAL: Jose L Ramos is a 51 year old adult female was referred to [facility] via Nilda Stafford DO for the following reason: disability planning PERSONS INTERVIEWED: patient Visit was conducted via [employer] om with limits to confidentiality agreed upon. PRINCIPAL NEUROLOGIC DIAGNOSIS: Date of diagnosis of MS: 2010 Recent symptom(s): Pt reported fatigue , numbness and tingling. IDENTIFIED PROBLEMS/NEEDS: Disability Intervention/Referral to be Provided:Arrangements made for continuity of care PATIENT PROVIDED BACKGROUND LIVING SITUATION: Lives at home with her teenage children. SOCIAL SUPPORTS:Pt has support from her mother. 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 DPOA health: No DPOA finance: No Guardian: No Is patient a ?: No DISCUSSION/SUMMARY: Patient expressed concern about continuing to work versus applying for disability. She is currently working part-time 15 to 20 hours/week at the [employer]. She states she is mostly on the computer however has much fatigue numbness spasticity and pain in her arms and legs. She stated her children are older teenagers and can help her when needed. She stated she cannot drive very far due to the fatigue and pain. She does not use any mobility devices. 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 She stated she would like to consider disability as she is unsure if she can continue to work. Create Social Security Account: [email or web address]/myaccount/ You will be able to see an estimated income if approved for disability We discussed the SSDI application process, how to initiate it on line as soon as the first day after being unable to work. We reviewed the [facility] definitions of gainful employment and total and permanent disability. I described the 5 month period of inability to work before being eligible; the application, determination and appeal process; when Medicare coverage becomes available for her only and that her children would receive a benefit until age 18. We discussed that the decision is made by SSA not by our doctors and discussed options for insurance coverage during 24 month wait period. We also discussed the options for retaining a disability senior sales operations manager at [employer] in the disability process. She also requested that Ben to write a letter stating she has a disability due to guardianship of her children. She is aware to contact me with any further social work needs or concerns. IMPRESSION: Pleasant 51 year old patient. Pt is independent with ADL's and independent with IADL's. Pt appeared able and motivated to follow up on recommendations as discussed. -Follow up as needed. Short Order Cook will remain available to address any questions/concerns. Short Order Cook's contact information was provided. I spent a total of 45 minutes with the patient Social work assessment/interventions rendered under the supervision of Dr. Katrina Mera, PhD, [facility]. Samreen Hopkins SHIFT ENGINEER [facility] Projects Manager documented in this encounter [facility] 12-05-2021 Miscellaneous Notes Source : mychart from pharmacy requesting refill. Delivery : e-script Requested Prescriptions Pending Prescriptions Disp Refills modafinil (PROVIGIL) 200 mg tablet [Pharmacy Med Name: MODAFINIL 200 MG TABS 200 Tablet] 30 tablet 5 Sig: TAKE 1 TABLET BY MOUTH ONCE DAILY Patient last seen 11/24/21 Next Appointment : 05/24/22 Macie Deutsch documented in this encounter [facility] 11-28-2021 Miscellaneous Notes Source : electronic from pharmacy requesting refill. Delivery : e-script Requested Prescriptions Pending Prescriptions Disp Refills modafinil (PROVIGIL) 200 mg tablet [Pharmacy Med Name: MODAFINIL 200 MG TABS 200 Tablet] 30 tablet 5 Sig: TAKE 1 TABLET BY MOUTH ONCE DAILY clonazePAM (KLONOPIN) 0.5 mg tablet [Pharmacy Med Name: CLONAZEPAM 0.5 MG TABS 0.5 Tablet] 30 tablet 5 Sig: TAKE 1 TABLET BY MOUTH DAILY AT BEDTIME NEEDED FOR SLEEP DX : Patient last seen 11/24/2021 Next Appointment : 05/24/2022 Mary Jo Torres documented in this encounter [facility] 11-24-2021 History of Present illness Narrative Images from the original note were not included. [facility] FOLLOWUP/ESTABLISHED PATIENT VISIT PRINCIPAL NEUROLOGIC DIAGNOSIS: Multiple Sclerosis DISEASE SUMMARY Date of onset: 2007 Date of diagnosis of MS: 2010 Disease course at onset: Relapsing-Remitting Current disease course: Relapsing-Remitting Previous disease therapies: - Avonex - Aubagio (03/2013 - 06/2015) - recurrent sinus infection Current disease therapy: Tecfidera (08/2016-Current) Most recent MRI brain: 05/19/2021 (stable), 04/08/2020 Most recent MRI cervical spine: 01/03/2015 CHIEF COMPLAINT: Follow-up on MS disease modifying therapy INTERVAL HISTORY: Usual treating team: Aicha/Sulema The patient is unaccompanied. The patient was last seen 05/19/2021, currently taking Tecfidera. Since the patient's last visit the patient reports overall feeling stable. Issues with current MS therapy: Tolerating medication with the following side effects: mild flushing, takes 81mg ASA which is helpful. She had previously tried generic tecfidera but had increased flushing. She is back on brand tecfidera and tolerating much better. She continues to follow with COVID clinic for long haulers. It is hard for her to know what symptoms are from MS or from residual COVID symptoms. Fatigue is severe, fluctuates. Has good and bad days. She tends to overdo it on good days. Has not done sleep study since last visit. Ambulates without assistance. No recent falls. Completes ADLs independently. She has had R leg pain, stems from R buttock, radiates to R lower leg, pain has been intermittent, although worsening. Driving in a car long distances or sitting long pain intensifies. Yoga does help during the stretches. She is interested in possible disability. SUBJECTIVE & REVIEW OF SYSTEMS: Neuro-QoL Functions (higher = better functioning) Flowsheet Row Office Visit from 11/24/2021 in [facility] Office Visit from 05/19/2021 in [facility] Upper Extremity Domain T Score 57 56.6 Lower Extremity Domain T Score 50 49.73 Cognitive Function Domain T Score 31 32.55 Positive Affect Well Being T Score -- -- Ability To Participate In Social Roles T Score 38 44.81 Satisfaction With Social Roles T Score 38 43.36 Neuro-QoL Symptoms (higher = worse symptoms) Flowsheet Row Office Visit from 11/24/2021 in [facility] Distance Health from 09/11/2021 in Psychology Sleep Domain T Score 68 -- Fatigue Domain T Score 65 -- Anxiety Domain T Score 58 -- Depression Domain T Score 56 53 Stigma Domain T Score 61 -- Emotional Behavior Dyscontrol T Score -- -- *NeuroQoL is a multi-domain patient-reported quality of life questionnaire. PHQ-9 Flowsheet Row Office Visit from 11/24/2021 in [facility] from 09/11/2021 in [facility] PHQ-9 Score 17 15 *PHQ-9 is a questionnaire for depressive symptoms, with scores 0-4 indicating none, 5-9 mild, 10-14 moderate, 15-19 moderately severe, and 20-27 severe symptoms. PROMIS-10 Flowsheet [facility] from 09/11/2021 in Psychology [facility] Patient Outreach from 06/05/2021 in Functional Medicine Global Physical Health T Score 29.6 39.8 Global Mental Health T Score 38.8 43.5 0-10 Standard Pain Scale 2 3 *PROMIS-10 is a patient-reported quality of life measure, typically reported as physical and mental domains. Here scores are expressed as percentiles, where the lowest possible score is one, the highest possible score is 99, and 50 is average. Mood: Good/bright On celexa Bladder: no change Bowel: No change Fatigue: Severe, on provigil Sleep: adequate, takes klonopin for sleep qhs which is helpful PAST HISTORY was reviewed and updated: PAST MEDICAL HISTORY Diagnosis Date COVID 04/2020 Depression Endometriosis MS (multiple sclerosis) (HCC) PAST SURGICAL HISTORY Procedure Laterality Date LAPS ABD PRTM&OMENTUM DX W/WO SPEC BR/WA SPX Laparoscopy MEDICATIONS and ALLERGIES were reviewed and updated. SOCIAL HISTORY was reviewed and updated: Living situation: Living at home without assistance Employment Status / Disability: Part-time OBJECTIVE: VITALS & WELLNESS: BP 118/66 Pulse 85 Ht 172.7 cm (5' 8 ) Wt 77.6 kg (171 lb) LMP 11/15/2021 (Approximate) BMI 26.00 kg/m Social History Tobacco Use Smoking status: Never Smokeless tobacco: Never PDDS: 0-Normal Multiple Sclerosis Performance Test Flowsheet Row Office Visit from 11/24/2021 in [facility] Office Visit from 05/19/2021 in [facility] Processing Speed Total Number Correct 51 53 Low-contrast letter acuity test-2.5 percent opacity 27 36 Low-contrast letter acuity test-100 percent opacity 58 59 Dominant hand -- -- MDT Left Hand Time 22.81 25.02 MDT Right Hand Time 19.32 21.43 Walking Speed Test (25 feet) 4.32 5.2 EXAM: Refer to patient-entered performance data RESULTS: Monitoring labs: CBC + Diff Component Value Date WBC 5.89 05/26/2021 HB 12.6 05/26/2021 HCT 39.8 05/26/2021 PLT 302 05/26/2021 ABSLYMPH 1.16 05/26/2021 CMP Component Value Date AST 17 05/26/2021 GLUC 104 (H) 05/26/2021 BUN 8 05/26/2021 CREAT 0.64 05/26/2021 NA 138 05/26/2021 K 4.5 05/26/2021 CHLOR 100 05/26/2021 ALT 16 05/26/2021 No results found for: JCVAB, JCVIND Discrete MRI Results Component Value Date Brain New T2 Lesions None 05/19/2021 Brain Enhancing Lesions None 05/19/2021 ASSESSMENT: Jose L Ramos is a 51 year old female with RRMS on Tecfidera which she tolerates well. No new neurological symptoms. She continues to struggle with significant fatigue, unsure how much related to MS vs long haulers COVID, likely both. Will continue provigil. Encouraged her to discuss energy conservation methods and fatigue management with health psychology. She also needs to schedule sleep study through PCP locally. Due to new onset R buttock and leg pain (likely sciatica) reviewed stretching, applying warm heat, and will try flexaril. May need to consider medrol dose pack and PT if does note resolve. She is due for lab monitoring on tecfidera today and brain MRI in 6 months. She inquires about disability. Will obtain FCE and consult social work to discuss process as she is unsure of how to apply or if she qualifies. Also gave her info to check [place] website. PLAN: -Continue Tecfidera -Brain MRI in 6 months -CBC & CMP today -Reschedule with health psychology (virtual) -Flexaril 5mg PO BID PRN for sciatic pain -Consult PT (FCE) -Consult social work [place] (discuss disability) -Follow up in 6 months with coordinated MRI I spent a total of 40 minutes on the date of the service which included preparing to see the patient, [id number] patient care, obtaining and/or reviewing separately obtained history, counseling and educating the patient/family/caregiver, and ordering medications, tests, or procedures. Ben Farr PA-C documented in this encounter [facility] 11-22-2021 Miscellaneous Notes Source : mychart from pharmacy requesting refill. Delivery : e-script Requested Prescriptions Pending Prescriptions Disp Refills modafinil (PROVIGIL) 200 mg tablet [Pharmacy Med Name: MODAFINIL 200 MG TABS 200 Tablet] 30 tablet 5 Sig: TAKE 1 TABLET BY MOUTH ONCE DAILY clonazePAM (KLONOPIN) 0.5 mg tablet [Pharmacy Med Name: CLONAZEPAM 0.5 MG TABS 0.5 Tablet] 30 tablet 1 Sig: TAKE 1 TABLET BY MOUTH DAILY AT BEDTIME NEEDED FOR SLEEP Patient last seen 05/19/21 Next Appointment : 11/24/21 Macie Deutsch documented in this encounter [facility] 11-13-2021 Miscellaneous Notes Source : call from pharmacy requesting refill. Delivery : e-script Requested Prescriptions Pending Prescriptions Disp Refills naproxen (NAPROSYN) 375 mg tablet 60 tablet 1 Patient last seen 05/19/2021 Next Appointment : 11/17/21 Macie Deutsch documented in this encounter [facility] 10-13-2021 Miscellaneous Notes Source : call from pharmacy requesting refill. Delivery : e-script Pending Prescriptions Disp Refills CLONAZEPAM 0.5 MG TABLET 30 tablet 1 Sig: TAKE 1 TABLET BY MOUTH DAILY AT BEDTIME NEEDED FOR SLEEP MARCEL Class: C-IV ISIDRO: No DX : Patient last seen: 06/16/2021 Next Appointment : Chaka Smallwood documented in this encounter [facility] 09-07-2021 Miscellaneous Notes Source : mychart from pharmacy requesting refill. Delivery : e-script Pending Prescriptions Disp Refills NAPROXEN 375 MG TABLET 60 tablet 10 Sig: TAKE 1 TABLET BY MOUTH TWICE DAILY WITH MEALS NEEDED ISIDRO: Yes Patient last seen 05/19/21 Next Appointment : 11/24/21 Macie Deutsch documented in this encounter [facility] 08-11-2021 Miscellaneous Notes The following approved medication requests have been transmitted electronically. Signed Prescriptions Disp Refills clonazePAM (KLONOPIN) 0.5 mg tablet 30 tablet 1 Sig: TAKE 1 TABLET BY MOUTH DAILY AT BEDTIME NEEDED FOR SLEEP MARCEL Class: C-IV ISIDRO: No Authorizing Provider: BEN FARR PA-C Source : electronic from pharmacy requesting refill. Delivery : e-script Pending Prescriptions Disp Refills CLONAZEPAM 0.5 MG TABLET 30 tablet 1 Sig: TAKE 1 TABLET BY MOUTH DAILY AT BEDTIME NEEDED FOR SLEEP MARCEL Class: C-IV ISIDRO: Yes DX : Patient last seen: 05/19/2021 Next Appointment : 11/24/2021 Sydney East documented in this encounter [facility] 08-11-2021 Miscellaneous Notes Source : electronic from pharmacy requesting refill. Delivery : e-script Pending Prescriptions Disp Refills NAPROXEN 375 MG TABLET 60 tablet 10 Sig: TAKE 1 TABLET BY MOUTH TWICE DAILY WITH MEALS NEEDED ISIDRO: No CITALOPRAM 20 MG TABLET 45 tablet 10 Sig: TAKE 1 & 1/2 TABLETS BY MOUTH ONCE DAILY ISIDRO: Yes DX : Patient last seen :05/19/2021 Next Appointment : 11/24/2021 Chaka Smallwood documented in this encounter [facility] 07-31-2021 Nurse Note Tobacco Use: Never Was smoking cessation packet given? N/A - Patient is a non-smoker or quit >1 year ago. Was a referral initiated?N/A Patient is a non-smoker documented in this encounter [facility] 07-31-2021 History of Present illness [facility]ative [facility] Rafal Pandey, Ph.D NAME: Jose L Ramos CLINIC NO: [id number] DATE OF SERVICE: July 28, 2021 Onset of symptoms/illness: 04/25/20 Treatment start date: 06/29/21 Plan Established or last reviewed: 07/31/21 IMPRESSION AND PLAN: Jose L Ramos is a 50 year old female seen for a 2nd session of respiratory therapy for chief complaint of post covid dyspnea on exertion. The exam did not show evidence of exercise induced laryngeal obstruction (EILO). There was however, muscle tension dyspnea, an inefficient breathing pattern with an upper torso / clavicular breathing, and hyperfunction of strap muscles. Patient reports that she is still trying to control her breathing and that it requires a lot of concentration to do the exercises. She progressed well today from lying down exercises to upright and coordination with movement (walking). She will practice the new routines and see me back in a virtual visit to follow up in a few weeks. We'll reassess breathing after completion of therapy HISTORY OF PRESENT PROBLEM: Parts of the history are taken from Zhane MUHAMMAD's notes. A review of the EMR was independently confirmed with the patient in this visit. Jose L Ramos is a 50 year old female seen today for a diagnostic evaluation of breathing and ruling out ILO. Patient was diagnosed with Multiple Sclerosis in 2010. She is currently in the relapsing-remitting disease course; on Tecfidera. Most recent MRI of brain in April 2021 revealed stable process. She also repots having COVID0-19 in April 2020 and November 2020, did not require hospitalization. She is currently following with the COVID recovery clinic due to long haul symptoms, including: chest pain, palpitations, SOB, fatigue, and brain fog. Visit to pulmonary in 05/18/21 with note reporting: Her overall cardiac findings have been unremarkable and within normal limits. and I reassured her that I do not feel that there is a primary cardiac source of her symptoms and that this breathing pattern disorder is worth further investigation with our [facility] center to include possible rehab therapy . She reports that she experiences some shortness of breath when doing physical activity. Any activity, even just stairs will trigger SOB. More difficult to exhale. No wheezing or stridor. She has tried albuterol inhaler but she didn't think it helped much. She also describes soreness and /or pain in the center of her chest, on the sternum, when she is SOB, and when exposed to strong smells. It takes about 10 minutes for her breathing to normalize after she stops. She describes occasional difficulty swallowing, with some food getting stuck in the throat. Occurs a few times a month. No choking or coughing. MBS study was normal. History of GERD. Well controlled on Omeprazole 40 mg once daily. PAST MEDICAL HISTORY Diagnosis Date COVID 04/2020 Depression Endometriosis MS (multiple sclerosis) (FORMERLY [facility]) Current Outpatient Medications on File Prior to Visit Medication Sig gabapentin (NEURONTIN) 100 mg capsule Take 1 capsule in the AM and 2 capsules at bedtime modafinil (PROVIGIL) 200 mg tablet TAKE 1 TABLET BY MOUTH ONCE DAILY clonazePAM (KLONOPIN) 0.5 mg tablet TAKE 1 TABLET BY MOUTH DAILY AT BEDTIME NEEDED FOR SLEEP aspirin (ASPIR-81 ORAL) Take by mouth. TECFIDERA [address] TAKE 1 CAPSULE (240 MG) BY MOUTH TWICE DAILY. MEDICATION, NON-DATABASE probiotic Apr 03, 2016 .5 mg 1 D3 Sep 06, 2010 MS 5400 IU 1 cranberry May 15, 2017 urinary pain 4200 mg 2 E May 04, 2015 tender breasts 180 mg 1 B Sep 06, 2010 Energy 250 mcg Ther-Biotic Complete Capsules (klaire/Prothera) Take 1 capsule by mouth once daily. resveratroL 250 mg cap Take 2 capsules by mouth twice daily. Multi t/d 60 ct. (Pure Encapsulations) Take 1 capsule by mouth twice daily with meals. GI-Revive 225 gram Powder (Cuedd) Take 1 teaspoon twice daily (1 teaspoon = 1.5 grams L-glut) citalopram (CELEXA) 20 mg tablet TAKE 1 AND 1/2 TABLETS BY MOUTH ONCE DAILY naproxen (NAPROSYN) 375 mg tablet TAKE ONE (1) TABLET BY MOUTH TWICE DAILY WITH MEALS NEEDED fluticasone (FLONASE ALLERGY RELIEF) 50 mcg/actuation nasal spray Use 1 [place] in each nostril once daily. omeprazole (PRILOSEC) 20 mg capsule Take 20 mg by mouth once daily. OTC PRODUCT Take 1 Dose by mouth daily at bedtime. Natural Vitality magnesium supplement. 1/2 - 1 tsp powder dissolved in liquid. cranberry conc-ascorbic acid 4,200-20 mg cap Take by mouth. 4 capsules daily loratadine/pseudoephedrine (CLARITIN-D 12 HOUR ORAL) Take 10 mg by mouth once daily. SODIUM CHLORIDE (SALINE NASAL NASAL) Use 1 Squirt in the nose twice daily. Cholecalciferol, Vitamin D3, (VITAMIN D) 1,000 unit cap Take 2 capsules by mouth once daily. VITAMIN E ORAL Take by mouth once daily. LACTOBACILLUS ACIDOPHILUS (PROBIOTIC ORAL) Take by mouth once daily. cyanocobalamin 1,000 mcg tab Take 1 tablet by mouth once daily. Current Facility-Administered Medications on File Prior to Visit Medication perflutren lipid microspheres 1.3 mL in NaCl (PF) 0.9% 10 mL injection (DEFINITY) sodium chloride 0.9 % (flush) 10 mL (BD POSIFLUSH) She has successfully developed appropriate abdominal breath control, and does not show evidence of muscle tension dyspnea on supine breathing exercises.. The shallow clavicular breathing pattern with tightness in the strap musculature, and paradoxical abdominal movement has resolved. Today's session was focused on developing lower abdominal breath control both in supine and upright positions, and coordination of breath and movement. Worked on ratio breathing, incorporating advanced ratios as there was rapid progression through the respiratory exercises. Ratios practiced included 1/1, 1/3, 1/6, 3/3, and 2/2. No difficulty with upright position./ Coordination with movement was relatively easy. Tendency to breathe in too much per inhale or too much outbreath on exhale.. Worked on modifying that by controlling the inhale with tighter pursed lip position. MS Ramos will practice at home with static and walking exercises. Will return in a few weeks to continue therapy. Rafal Pandey, PhD, CCC-GUN SEALING MACHINE OPERATOR documented in this encounter [facility] 07-14-2021 Miscellaneous Notes Source : electronic from pharmacy requesting refill. Delivery : e-script Pending Prescriptions Disp Refills GABAPENTIN 100 MG CAPSULE 90 capsule 10 Sig: TAKE 1 CAPSULE DAILY ~108Q2 TAKE 2 CAPSULES AT BEDTIME ISIDRO: No DX : Patient last seen :05/19/2021 Next Appointment : 11/11/2021 Chaka Smallwood documented in this encounter [facility] 07-03-2021 Miscellaneous Notes Outside records received and scanned in for review. documented in this encounter [facility] 06-29-2021 Instructions Rafal Pandey PhD, CCC-GUN SEALING MACHINE OPERATOR - 06/29/2021 11:01 AM EDT Recommendations: - Practice abdominal breathing control lying down on hard surface - 10 minute practice, 2 x day - With shoulders and neck relaxed - Pursed lip breathing with audible inhalation and exhalation. - Focus on eliminating any chest movement, and increasing awareness of abdominal engagement. Ratios: - 1/1 - 1/2 - 1/3 - 1/4 - 2/2 Breathing checks. - Sitting up or standing. - Practice 20+ throughout the day. Rafal Pandey PHD CCC-GUN SEALING MACHINE OPERATOR documented in this encounter [facility] 06-29-2021 History of Present illness [facility]ative [facility] Rafal Pandey, Ph.D NAME: Jose L Ramos [facility] NO: [id number] DATE OF SERVICE: June 29, 2021 IMPRESSION AND PLAN: Jose L Ramos is a 50 year old female seen for a 1st session of respiratory therapy for chief complaint of post covid dyspnea on exertion. The exam did not show evidence of exercise induced laryngeal obstruction (EILO). There was however, muscle tension dyspnea, an inefficient breathing pattern with an upper torso / clavicular breathing, and hyperfunction of strap muscles. Recommendation to reassess breathing after completion of therapy HISTORY OF PRESENT PROBLEM: Parts of the history are taken from Zhane Omalley GUN SEALING MACHINE OPERATOR's notes. A review of the EMR was independently confirmed with the patient in this visit. Jose L Ramos is a 50 year old female seen today for a diagnostic evaluation of breathing and ruling out ILO. Patient was diagnosed with Multiple Sclerosis in 2010. She is currently in the relapsing-remitting disease course; on Tecfidera. Most recent MRI of brain in April 2021 revealed stable process. She also repots having COVID0-19 in April 2020 and November 2020, did not require hospitalization. She is currently following with the [facility] recovery clinic due to long haul symptoms, including: chest pain, palpitations, SOB, fatigue, and brain fog. Visit to pulmonary in 05/18/21 with note reporting: Her overall cardiac findings have been unremarkable and within normal limits. and I reassured her that I do not feel that there is a primary cardiac source of her symptoms and that this breathing pattern disorder is worth further investigation with our [facility] to include possible rehab therapy . She reports that she experiences some shortness of breath when doing physical activity. Any activity, even just stairs will trigger SOB. More difficult to exhale. No wheezing or stridor. She has tried albuterol inhaler but she didn't think it helped much. She also describes soreness and /or pain in the center of her chest, on the sternum, when she is SOB, and when exposed to strong smells. It takes about 10 minutes for her breathing to normalize after she stops. She describes occasional difficulty swallowing, with some food getting stuck in the throat. Occurs a few times a month. No choking or coughing. MBS study was normal. History of GERD. Well controlled on Omeprazole 40 mg once daily. PAST MEDICAL HISTORY Diagnosis Date COVID 04/2020 Depression Endometriosis MS (multiple sclerosis) ([facility]) Current Outpatient Medications on File Prior to Visit Medication Sig modafinil (PROVIGIL) 200 mg tablet TAKE 1 TABLET BY MOUTH ONCE DAILY clonazePAM (KLONOPIN) 0.5 mg tablet TAKE 1 TABLET BY MOUTH DAILY AT BEDTIME NEEDED FOR SLEEP aspirin (ASPIR-81 ORAL) Take by mouth. TECFIDERA [address] TAKE 1 CAPSULE (240 MG) BY MOUTH TWICE DAILY. MEDICATION, NON-DATABASE probiotic Apr 03, 2016 .5 mg 1 D3 Sep 06, 2010 MS 5400 IU 1 cranberry May 15, 2017 urinary pain 4200 mg 2 E May 04, 2015 tender breasts 180 mg 1 B Sep 06, 2010 Energy 250 mcg Ther-Biotic Complete Capsules (klaire/Prothera) Take 1 capsule by mouth once daily. (Patient not taking: Reported on 05/18/2021 ) resveratroL 250 mg cap Take 2 capsules by mouth twice daily. (Patient not taking: Reported on 05/18/2021 ) Multi t/d 60 ct. (Pure Encapsulations) Take 1 capsule by mouth twice daily with meals. GI-Revive 225 gram Powder (Cuedd) Take 1 teaspoon twice daily (1 teaspoon = 1.5 grams L-glut) citalopram (CELEXA) 20 mg tablet TAKE 1 AND 1/2 TABLETS BY MOUTH ONCE DAILY naproxen (NAPROSYN) 375 mg tablet TAKE ONE (1) TABLET BY MOUTH TWICE DAILY WITH MEALS NEEDED gabapentin (NEURONTIN) 100 mg capsule TAKE 1 CAPSULE BY MOUTH EVERY MORNING AND TAKE 2 CAPSULES BY MOUTH EVERY NIGHT AT BEDTIME fluticasone (FLONASE ALLERGY RELIEF) 50 mcg/actuation nasal spray Use 1 [place] in each nostril once daily. omeprazole (PRILOSEC) 20 mg capsule Take 20 mg by mouth once daily. OTC PRODUCT Take 1 Dose by mouth daily at bedtime. Natural Vitality magnesium supplement. 1/2 - 1 tsp powder dissolved in liquid. cranberry conc-ascorbic acid 4,200-20 mg cap Take by mouth. 4 capsules daily loratadine/pseudoephedrine (CLARITIN-D 12 HOUR ORAL) Take 10 mg by mouth once daily. SODIUM CHLORIDE (SALINE NASAL NASAL) Use 1 Squirt in the nose twice daily. Cholecalciferol, Vitamin D3, (VITAMIN D) 1,000 unit cap Take 2 capsules by mouth once daily. VITAMIN E ORAL Take by mouth once daily. LACTOBACILLUS ACIDOPHILUS (PROBIOTIC ORAL) Take by mouth once daily. cyanocobalamin 1,000 mcg tab Take 1 tablet by mouth once daily. Current Facility-Administered Medications on File Prior to Visit Medication perflutren lipid microspheres 1.3 mL in NaCl (PF) 0.9% 10 mL injection (DEFINITY) sodium chloride 0.9 % (flush) 10 mL (BD POSIFLUSH) An individual course of respiratory and laryngeal control therapy was initiated today. Today's session was focused on developing lower abdominal breath control. Practice was initiated with the patient in supine position. Patient was given a series of exercises to practice at home daily. Will return for continuation of therapy in a few weeks. Recommendations: - Practice abdominal breathing control lying down on hard surface - 10 minute practice, 2 x day - With shoulders and neck relaxed - Pursed lip breathing with audible inhalation and exhalation. - Focus on eliminating any chest movement, and increasing awareness of abdominal engagement. Ratios: - /1 - 1/3 - 1/4 - 2/2 Breathing checks. - Sitting up or standing. - Practice 20+ throughout the day. Rafal Pandey, PHD CCC-GUN SEALING MACHINE OPERATOR documented in this encounter [facility] 06-27-2021 Miscellaneous Notes Spoke to the patient she advised she was also seen as at [facility] for COVID long hauler symptoms. Requested those records are forwarded for review. Provided fax number Additional record are internal. documented in this encounter [facility] 06-23-2021 History of Present illness [facility]ative [facility] Rafal Pandey, Ph.D NAME: Jose L Ramos CLINIC NO: [id number] DATE OF SERVICE: June 23, 2021 IMPRESSION AND PLAN: Jose L aRmos is a 50 year old female referred by Zhane Omalley, SABINA to determine whether there is a component of inducible laryngeal obstruction (ILO) related to the chief complaint of dyspnea on exertion. The laryngeal examination showed mild weakness of the vocal folds resulting in irregular vibration and mild hoarseness. Provocative challenge test did not show evidence of paradoxical movement of the vocal folds. Exercise induced laryngeal obstruction (EILO) was ruled out. Jose L has muscle tension dyspnea, an inefficient breathing pattern with an upper torso / clavicular breathing, and hyperfunction of strap muscles. Chest pain is probably musculoskeletal in origin. Treatment recommendations include an individual course of respiratory control therapy, and reassess at the completion of therapy. HISTORY OF PRESENT PROBLEM: Parts of the history are taken from Zhane MUHAMMAD's notes. A review of the EMR was independently confirmed with the patient in this visit. Jose L Ramos is a 50 year old female seen today for a diagnostic evaluation of breathing and ruling out ILO. Patient was diagnosed with Multiple Sclerosis in 2010. She is currently in the relapsing-remitting disease course; on Tecfidera. Most recent MRI of brain in April 2021 revealed stable process. She also repots having COVID0-19 in April 2020 and November 2020, did not require hospitalization. She is currently following with the COVID recovery clinic due to long haul symptoms, including: chest pain, palpitations, SOB, fatigue, and brain fog. Visit to pulmonary in 05/18/21 with note reporting: Her overall cardiac findings have been unremarkable and within normal limits. and I reassured her that I do not feel that there is a primary cardiac source of her symptoms and that this breathing pattern disorder is worth further investigation with our [facility] center to include possible rehab therapy . She reports that she experiences some shortness of breath when doing physical activity. Any activity, even just stairs will trigger SOB. More difficult to exhale. No wheezing or stridor. She has tried albuterol inhaler but she didn't think it helped much. She also describes soreness and /or pain in the center of her chest, on the sternum, when she is SOB, and when exposed to strong smells. It takes about 10 minutes for her breathing to normalize after she stops. She describes occasional difficulty swallowing, with some food getting stuck in the throat. Occurs a few times a month. No choking or coughing. MBS study was normal. History of GERD. Well controlled on Omeprazole 40 mg once daily. Dyspnea Index: 0 = Never, 1 = Almost Never, 2 = Sometimes, 3 = Almost Always, 4 = Always As reported by patient: 1. I have trouble getting air in when I am having my breathing problem. 1 2. I feel tightness in my throat when I am having my breathing problem. 1 3. It takes more effort to breathe than it used to . 4 4. Changes in weather affect my breathing problem. 2 5. My breathing gets worse with stress. 3 6. I make sound/noise when breathing in. 2 7. I have to strain to breathe. 2 8. My shortness of breath gets worse with exercise or physical activity. 3 9. My breathing problem makes me feel stressed. 4 10. My breathing problem causes me to restrict my personal & social life. 2 TOTAL RAW: 24 Reflux Symptom Index (RSI): This questionnaire assesses the patient's perception of the severity of reflux related symptoms. (Rank as follows: 0=no problem; 3=moderate problem; 5=severe problem Within last month how did following problems affect you? 1. Hoarseness or a problem with your voice. 4 2. Clearing your throat? 5 3. Excess throat mucous or postnasal drip? 4 4. Difficulty swallowing food, liquids or pills? 4 5. Coughing after you ate or after lying down? 3 6. Breathing difficulties or choking episodes? 4 7. Troublesome or annoying cough? 5 8. Sensations of something sticking in your throat or a lump in your throat? 2 9. Heartburn, chest pain, indigestion or stomach acid coming up? 3 TOTAL: 34 PAST MEDICAL HISTORY Diagnosis Date COVID 04/2020 Depression Endometriosis MS (multiple sclerosis) ([facility]ER[facility]) Current Outpatient Medications on File Prior to Visit Medication Sig omeprazole (PRILOSEC) 20 mg capsule Take 20 mg by mouth once daily. modafinil (PROVIGIL) 200 mg tablet TAKE 1 TABLET BY MOUTH ONCE DAILY clonazePAM (KLONOPIN) 0.5 mg tablet TAKE 1 TABLET BY MOUTH DAILY AT BEDTIME NEEDED FOR SLEEP aspirin (ASPIR-81 ORAL) Take by mouth. TECFIDERA [address] TAKE 1 CAPSULE (240 MG) BY MOUTH TWICE DAILY. MEDICATION, NON-DATABASE probiotic Apr 03, 2016 .5 mg 1 D3 Sep 06, 2010 MS 5400 IU 1 cranberry May 15, 2017 urinary pain 4200 mg 2 E May 04, 2015 tender breasts 180 mg 1 B Sep 06, 2010 Energy 250 mcg Ther-Biotic Complete Capsules (klaire/Prothera) Take 1 capsule by mouth once daily. (Patient not taking: Reported on 05/18/2021 ) resveratroL 250 mg cap Take 2 capsules by mouth twice daily. (Patient not taking: Reported on 05/18/2021 ) Multi t/d 60 ct. (Pure Encapsulations) Take 1 capsule by mouth twice daily with meals. GI-Revive 225 gram Powder (Cuedd) Take 1 teaspoon twice daily (1 teaspoon = 1.5 grams L-glut) citalopram (CELEXA) 20 mg tablet TAKE 1 AND 1/2 TABLETS BY MOUTH ONCE DAILY naproxen (NAPROSYN) 375 mg tablet TAKE ONE (1) TABLET BY MOUTH TWICE DAILY WITH MEALS NEEDED gabapentin (NEURONTIN) 100 mg capsule TAKE 1 CAPSULE BY MOUTH EVERY MORNING AND TAKE 2 CAPSULES BY MOUTH EVERY NIGHT AT BEDTIME fluticasone (FLONASE ALLERGY RELIEF) 50 mcg/actuation nasal spray Use 1 [place] in each nostril once daily. OTC PRODUCT Take 1 Dose by mouth daily at bedtime. Natural Vitality magnesium supplement. 1/2 - 1 tsp powder dissolved in liquid. cranberry conc-ascorbic acid 4,200-20 mg cap Take by mouth. 4 capsules daily loratadine/pseudoephedrine (CLARITIN-D 12 HOUR ORAL) Take 10 mg by mouth once daily. SODIUM CHLORIDE (SALINE NASAL NASAL) Use 1 Squirt in the nose twice daily. Cholecalciferol, Vitamin D3, (VITAMIN D) 1,000 unit cap Take 2 capsules by mouth once daily. VITAMIN E ORAL Take by mouth once daily. LACTOBACILLUS ACIDOPHILUS (PROBIOTIC ORAL) Take by mouth once daily. cyanocobalamin 1,000 mcg tab Take 1 tablet by mouth once daily. Current Facility-Administered Medications on File Prior to Visit Medication perflutren lipid microspheres 1.3 mL in NaCl (PF) 0.9% 10 mL injection (DEFINITY) sodium chloride 0.9 % (flush) 10 mL (BD POSIFLUSH) PROCEDURE: The patient was sprayed with 2% lidocaine and 1% phenylephrine. After an approximate amount of time for vasoconstriction and anesthesia to be achieved, a flexible fiberoptic laryngoscope was inserted into the nasal cavity, nasopharynx, down to the oropharynx. A laryngeal function study which included videoendoscopy with stroboscopy was performed. FINDINGS: Findings revealed that the epiglottis, AE folds, vallecula, and pyriform sinuses appeared normal. No cobblestoning or erythema was appreciated along the posterior oropharyngeal wall. Inspection of the larynx revealed there were no lesions, tumor, masses, ulcerations or areas of leukoplakia identified. The subglottis was patent, no evidence of any stenosis was appreciated. Range of motion of the vocal folds is slightly decreased. During phonation, the pattern of glottal closure is irregular and incomplete. complete. Amplitude of vibration and mucosal waves are within normal limits bilaterally. PROVOCATIVE CHALLENGE TEST: The patient was asked to perform high ventilatory output tasks. During these there was no evidence of paradoxical motion of the vocal folds. The scope was withdrawn and the patient tolerated the procedure well. I reviewed the video with Jose L Ramos. Rafal Pandey, PhD, CCC-GUN SEALING MACHINE OPERATOR documented in this encounter [facility] Shortness of breath- Primary [facility] Diagnosis Shortness of breath- Primary Abnormality of breathing Respiratory abnormality, unspecified [facility] Diagnosis Multiple sclerosis (HCC) Multiple sclerosis Medication monitoring encounter Encounter for therapeutic drug monitoring documented in this encounter [facility] Diagnosis Multiple sclerosis (HCC) Multiple sclerosis Medication monitoring encounter Encounter for therapeutic drug monitoring documented in this encounter [facility] Diagnosis Multiple sclerosis (HCC) Multiple sclerosis Medication monitoring encounter Encounter for therapeutic drug monitoring documented [facility] this encounter [facility] Diagnosis Multiple sclerosis (HCC)- Primary Multiple sclerosis Medication monitoring encounter Encounter for therapeutic drug monitoring documented [facility] this encounter [facility] Diagnosis Multiple sclerosis (HCC) Multiple sclerosis Medication monitoring encounter Encounter for therapeutic drug monitoring documented [facility] this [facility] Diagnosis Multiple sclerosis (HCC) Multiple sclerosis Medication monitoring encounter Encounter for therapeutic drug monitoring documented [facility] this encounter [facility] Diagnosis Multiple sclerosis (HCC)- Primary Multiple sclerosis documented in this encounter [facility] Diagnosis Multiple sclerosis (HCC)- Primary [facility] Diagnosis Dry eye syndrome of both eyes- Primary Regular astigmatism of both eyes Regular astigmatism Presbyopia documented in this encounter [facility]* Diagnosis Signs and symptoms involving cognition- Primary Other signs and symptoms involving cognition Depression, unspecified depression type Anxiety Anxiety state, unspecified Fatigue, unspecified type documented in this encounter [facility] note* Diagnosis Multiple sclerosis (HCC) Multiple sclerosis Medication monitoring encounter Encounter for therapeutic drug monitoring documented in this encounter [facility] note* Diagnosis Multiple sclerosis (HCC) Multiple sclerosis Medication monitoring encounter Encounter for therapeutic drug monitoring documented in this encounter [facility] note* Diagnosis Multiple sclerosis (HCC)- Primary Multiple sclerosis Medication monitoring encounter Encounter for therapeutic drug monitoring Malaise and fatigue Other malaise and fatigue Inattention Attention or concentration deficit Mood disorder (HCC) Unspecified episodic mood disorder documented in this encounter [facility] note* Diagnosis Hypersomnia, unspecified- Primary Multiple sclerosis (HCC) Multiple sclerosis Malaise and fatigue Other malaise and fatigue documented in this encounter [facility] note* Diagnosis Multiple sclerosis (HCC) Multiple sclerosis Medication monitoring encounter Encounter for therapeutic drug monitoring documented in this encounter [facility] note* Diagnosis Multiple sclerosis (HCC) Multiple sclerosis Medication monitoring encounter Encounter for therapeutic drug monitoring documented in this encounter [facility] note* Diagnosis Multiple sclerosis (HCC) Multiple sclerosis Medication monitoring encounter Encounter for therapeutic drug monitoring documented in this encounter [facility] note* Diagnosis Multiple sclerosis (HCC) Multiple sclerosis Medication monitoring encounter Encounter for therapeutic drug monitoring documented in this encounter [facility] note* Diagnosis Multiple sclerosis (HCC)- Primary Multiple sclerosis documented in this encounter [facility] note* Diagnosis Multiple sclerosis (HCC) Multiple sclerosis Medication monitoring encounter Encounter for therapeutic drug monitoring documented in this encounter [facility] note* Diagnosis Multiple sclerosis (HCC)- Primary Multiple sclerosis documented in this encounter [facility] note* Diagnosis Multiple sclerosis (HCC)- Primary Multiple sclerosis Medication monitoring encounter Encounter for therapeutic drug monitoring Malaise and fatigue Other malaise and fatigue Demyelinating disease of central nervous system (HCC) Demyelinating disease of central nervous system, unspecified documented in this encounter [facility] note* Diagnosis Multiple sclerosis (HCC)- Primary Multiple sclerosis documented in this encounter [facility] note* Diagnosis Multiple sclerosis (HCC) Multiple sclerosis Medication monitoring encounter Encounter for therapeutic drug monitoring documented in this encounter [facility] note* Diagnosis Multiple sclerosis (HCC)- Primary Multiple sclerosis documented in this encounter [facility] Summary Purpose Family History No Family History Records FoundNo Family History Records Found Advance Directives No Advanced Directives Records FoundNo Advanced Directives Records Found Reason for Referral Specialty Diagnoses / Procedures Referred By Contac t Referred To Contact [facility] Diagnoses Multiple sclerosis (HCC) Medication monitoring encounter Procedures CONSULT TO PHYSICAL THERAPY PHYSICAL THERAPY EVALUATION HIGH COMPLEX 45 MINS Ben Farr PA-C [address] [place] [address] [facility] [address] [address] Referral ID Status Reason Start Date Expiration Date Visits Requested Visits Authorized [id number] Pending Review Auto-Generat ed Referral 11/24/2021 11/24/2022 1 1 Specialty Diagnoses / Procedures Referred By Contac t Referred To Contact [facility] Diagnoses Multiple sclerosis (HCC) Medication monitoring encounter Procedures MRI BRAIN WO/W IVCON MRI BRAIN BRAIN STEM W/O W/CONTRAST MATERIAL Ben Farr PA-C [address] [place] [address] [facility] Referral ID Status Reason Start Date Expiration Date Visits Requested Visits Authorized [id number] Pending Review Auto-Generat ed Referral 11/24/2021 12/24/2022 1 1 Specialty Diagnoses / Procedures Referred By Contac t Referred To Contact [facility] Diagnoses Multiple sclerosis (HCC) Procedures CONSULT TO ROTOFORMER BACKTENDER OCCUPATIONAL THERAPY EVAL HIGH COMPLEX 60 MINS Ben Farr PA-C [address] [place] [address] [facility] [address] [address] Referral ID Status Reason Start Date Expiration Date Visits Requested Visits Authorized [id number] Pending Review Auto-Generat ed Referral 01/02/2023 1 1 Referral ID Status Reason Start Date Expiration Date V isits Requested Visits Authorized [id number] Closed Auto-Generate d Referral 05/05/2022 06/04/2022 1 1 Specialty Diagnoses / Procedures Referred By Contac t Referred To Contact Diagnoses Multiple sclerosis (HCC) Inattention Mood disorder (HCC) Procedures CONSULT TO PSYCHIATRY OFFICE/OUTPATIENT NEW [facility] MDM 60-74 MINUTES Ben Farr PA-C [address] [place] [address] Referral ID Status Reason Start Date Expiration Date Visits Requested Visits Authorized [id number] Pending Review PCP Requested Referral 05/24/2022 05/24/2023 1 1 Specialty Diagnoses / Procedures Referred By Genny ponce Referred To Contact Diagnoses Multiple sclerosis (HCC) Malaise and fatigue Procedures CONSULT TO SLEEP MEDICINE - ADULT OFFICE/OUTPATIENT NEW HIGH MDM 60-74 MINUTES Ben Farr PA-C [address] [place] [phone] Referral ID Status Reason Start Date Expiration Date Visits Requested Visits Authorized [id number] Authorized PCP Requested Referral 05/24/2022 05/24/2023 1 1 Specialty Diagnoses / Procedures Referred By Genny ponce Referred To Contact [facility] Diagnoses Multiple sclerosis (HCC) Procedures CONSULT TO PHYSICAL THERAPY PHYSICAL THERAPY EVALUATION HIGH COMPLEX 45 MINS Ben Farr PA-C [address] [place] [phone] [facility] [place] [phone] Referral ID Status Reason Start Date Expiration Date Visits Requested Visits Authorized [id number] Pending Review Auto-Generat ed Referral 11/30/2022 11/30/2023 1 1 Specialty Diagnoses / Procedures Referred By Genny ponce Referred To Contact [facility] Diagnoses Demyelinating disease of central nervous system (HCC) Procedures MRI CERVICAL SPINE WO/W IVCON MRI SPINAL CANAL CERVICAL W/O & W/CONTR MATRL Ben Farr PA-C [address] [place] [address] [facility] Referral ID Status Reason Start Date Expiration Date Visits Requested Visits Authorized [id number] Pending Review Auto-Generat ed Referral 11/30/2022 12/30/2023 1 1 Specialty Diagnoses / Procedures Referred By Genny ponce Referred To Contact [facility] Diagnoses Multiple sclerosis (HCC) Medication monitoring encounter Procedures MRI BRAIN WO/W IVCON MRI BRAIN BRAIN STEM W/O W/CONTRAST MATERIAL Ben Farr PA-C [address] [place] [address] [place] [address] Referral ID Status Reason Start Date Expiration Date Visits Requested Visits Authorized [id number] Pending Review Auto-Generat ed Referral 11/30/2022 12/30/2023 1 1 Medications Administered Section Inactive Administered Medications - up to 3 most recent administrations Medication Order MAR Action Action Date Dose Rate Site PHENYLephrine 2.5 % 1 Drop (AK-DILATE, LEXIS-SYNEPHRINE) 1 Drop, BOTH EYES, DIRECTED, Starting on Sat02/05/22 at 1430, Until Sat02/06/22 at 0229, Administer for dilation PROTECT FROM LIGHT Given 02/05/2022 2:30 PM EST 1 Drop proparacaine 0.5 % 1 Drop (ALCAINE) 1 Drop, BOTH EYES, DIRECTED, Starting on Sat02/05/22 at 1430, Until Sat02/06/22 at 0229, Administer for pneumo tonometry, tonopen tonometry, or pachymetry. In the event of a proparacaine shortage, administer tetracaine 0.5% ophthalmic drops 1 drop in the left eye as directed for pneumo tonometry, tonopen tonometry, or pachymetry Given 02/05/2022 2:30 PM EST 1 Drop tropicamide 1 % 1 Drop (MYDRIACYL) 1 Drop, BOTH EYES, DIRECTED, Starting on Sat02/05/22 at 1430, Until Sat02/06/22 at 0229, Administer for dilation Given 02/05/2022 2:30 PM EST 1 Drop Additional Source Comments INFORMATION SOURCE (unrecogn ized section and content) DATE CREATED AUTHOR AUTHOR'S ORGANIZ ATION 03/14/2023 [facility] Source Comments (unrecognize d section and content) In the event this informatio n is protected by the Federal Confidentiality of Alcohol and Drug Abuse Patient Records regulations: The Federal rules restrict any use of the information to criminally investigate or prosecute any alcohol or drug abuse patient.[facility] the event this information is protected by the Federal Confidentiality of Alcohol and Drug Abuse Patient Records regulations: The Federal rules restrict any use of the information to criminally investigate or prosecute any alcohol or drug abuse patient.[facility] HospitalIn the event this information is protected by the Federal Confidentiality of Alcohol and Drug Abuse Patient Records regulations: The Federal rules restrict any use of the information to criminally investigate or prosecute any alcohol or drug abuse patient.[facility] HospitalIn the event this information is protected by the Federal Confidentiality of Alcohol and Drug Abuse Patient Records regulations: The Federal rules restrict any use of the information to criminally investigate or prosecute any alcohol or drug abuse patient.[facility] HospitalIn the event this information is protected by the Federal Confidentiality of Alcohol and Drug Abuse Patient Records regulations: The Federal rules restrict any use of the information to criminally investigate or prosecute any alcohol or drug abuse patient.[facility] HospitalIn the event this information is protected by the Federal Confidentiality of Alcohol and Drug Abuse Patient Records regulations: The Federal rules restrict any use of the information to criminally investigate or prosecute any alcohol or drug abuse patient.[facility] HospitalIn the event this information is protected by the Federal Confidentiality of Alcohol and Drug Abuse Patient Records regulations: The Federal rules restrict any use of the information to criminally investigate or prosecute any alcohol or drug abuse patient.[facility] HospitalIn the event this information is protected by the Federal Confidentiality of Alcohol and Drug Abuse Patient Records regulations: The Federal rules restrict any use of the information to criminally investigate or prosecute any alcohol or drug abuse patient.[facility] HospitalIn the event this information is protected by the Federal Confidentiality of Alcohol and Drug Abuse Patient Records regulations: The Federal rules restrict any use of the information to criminally investigate or prosecute any alcohol or drug abuse patient.[facility] HospitalIn the event this information is protected by the Federal Confidentiality of Alcohol and Drug Abuse Patient Records regulations: The Federal rules restrict any use of the information to criminally investigate or prosecute any alcohol or drug abuse patient.[facility] HospitalIn the event this information is protected by the Federal Confidentiality of Alcohol and Drug Abuse Patient Records regulations: The Federal rules restrict any use of the information to criminally investigate or prosecute any alcohol or drug abuse patient.[facility] HospitalIn the event this information is protected by the Federal Confidentiality of Alcohol and Drug Abuse Patient Records regulations: The Federal rules restrict any use of the information to criminally investigate or prosecute any alcohol or drug abuse patient.[facility] HospitalIn the event this information is protected by the Federal Confidentiality of Alcohol and Drug Abuse Patient Records regulations: The Federal rules restrict any use of the information to criminally investigate or prosecute any alcohol or drug abuse patient.[facility] HospitalIn the event this information is protected by the Federal Confidentiality of Alcohol and Drug Abuse Patient Records regulations: The Federal rules restrict any use of the information to criminally investigate or prosecute any alcohol or drug abuse patient.[facility] HospitalIn the event this information is protected by the Federal Confidentiality of Alcohol and Drug Abuse Patient Records regulations: The Federal rules restrict any use of the information to criminally investigate or prosecute any alcohol or drug abuse patient.[facility] HospitalIn the event this information is protected by the Federal Confidentiality of Alcohol and Drug Abuse Patient Records regulations: The Federal rules restrict any use of the information to criminally investigate or prosecute any alcohol or drug abuse patient.[facility] HospitalIn the event this information is protected by the Federal Confidentiality of Alcohol and Drug Abuse Patient Records regulations: The Federal rules restrict any use of the information to criminally investigate or prosecute any alcohol or drug abuse patient.[facility] HospitalIn the event this information is protected by the Federal Confidentiality of Alcohol and Drug Abuse Patient Records regulations: The Federal rules restrict any use of the information to criminally investigate or prosecute any alcohol or drug abuse patient.[facility] HospitalIn the event this information is protected by the Federal Confidentiality of Alcohol and Drug Abuse Patient Records regulations: The Federal rules restrict any use of the information to criminally investigate or prosecute any alcohol or drug abuse patient.[facility] HospitalIn the event this information is protected by the Federal Confidentiality of Alcohol and Drug Abuse Patient Records regulations: The Federal rules restrict any use of the information to criminally investigate or prosecute any alcohol or drug abuse patient.[facility] HospitalIn the event this information is protected by the Federal Confidentiality of Alcohol and Drug Abuse Patient Records regulations: The Federal rules restrict any use of the information to criminally investigate or prosecute any alcohol or drug abuse patient.[facility] the event this information is protected by the Federal Confidentiality of Alcohol and Drug Abuse Patient Records regulations: The Federal rules restrict any use of the information to criminally investigate or prosecute any alcohol or drug abuse patient.[facility] HospitalIn the event this information is protected by the Federal Confidentiality of Alcohol and Drug Abuse Patient Records regulations: The Federal rules restrict any use of the information to criminally investigate or prosecute any alcohol or drug abuse patient.[facility] HospitalIn the event this information is protected by the Federal Confidentiality of Alcohol and Drug Abuse Patient Records regulations: The Federal rules restrict any use of the information to criminally investigate or prosecute any alcohol or drug abuse patient.[facility] the event this information is protected by the Federal Confidentiality of Alcohol and Drug Abuse Patient Records regulations: The Federal rules restrict any use of the information to criminally investigate or prosecute any alcohol or drug abuse patient.[facility] HospitalIn the event this information is protected by the Federal Confidentiality of Alcohol and Drug Abuse Patient Records regulations: The Federal rules restrict any use of the information to criminally investigate or prosecute any alcohol or drug abuse patient.[facility] HospitalIn the event this information is protected by the Federal Confidentiality of Alcohol and Drug Abuse Patient Records regulations: The Federal rules restrict any use of the information to criminally investigate or prosecute any alcohol or drug abuse patient.[facility] HospitalIn the event this information is protected by the Federal Confidentiality of Alcohol and Drug Abuse Patient Records regulations: The Federal rules restrict any use of the information to criminally investigate or prosecute any alcohol or drug abuse patient.[facility] HospitalIn the event this information is protected by the Federal Confidentiality of Alcohol and Drug Abuse Patient Records regulations: The Federal rules restrict any use of the information to criminally investigate or prosecute any alcohol or drug abuse patient.[facility] HospitalIn the event this information is protected by the Federal Confidentiality of Alcohol and Drug Abuse Patient Records regulations: The Federal rules restrict any use of the information to criminally investigate or prosecute any alcohol or drug abuse patient.[facility] HospitalIn the event this information is protected by the Federal Confidentiality of Alcohol and Drug Abuse Patient Records regulations: The Federal rules restrict any use of the information to criminally investigate or prosecute any alcohol or drug abuse patient.[facility] HospitalIn the event this information is protected by the Federal Confidentiality of Alcohol and Drug Abuse Patient Records regulations: The Federal rules restrict any use of the information to criminally investigate or prosecute any alcohol or drug abuse patient.[facility] HospitalIn the event this information is protected by the Federal Confidentiality of Alcohol and Drug Abuse Patient Records regulations: The Federal rules restrict any use of the information to criminally investigate or prosecute any alcohol or drug abuse patient.[facility] HospitalIn the event this information is protected by the Federal Confidentiality of Alcohol and Drug Abuse Patient Records regulations: The Federal rules restrict any use of the information to criminally investigate or prosecute any alcohol or drug abuse patient.[facility] HospitalIn the event this information is protected by the Federal Confidentiality of Alcohol and Drug Abuse Patient Records regulations: The Federal rules restrict any use of the information to criminally investigate or prosecute any alcohol or drug abuse patient.[facility] HospitalIn the event this information is protected by the Federal Confidentiality of Alcohol and Drug Abuse Patient Records regulations: The Federal rules restrict any use of the information to criminally investigate or prosecute any alcohol or drug abuse patient.[facility] HospitalIn the event this information is protected by the Federal Confidentiality of Alcohol and Drug Abuse Patient Records regulations: The Federal rules restrict any use of the information to criminally investigate or prosecute any alcohol or drug abuse patient.[facility] HospitalIn the event this information is protected by the Federal Confidentiality of Alcohol and Drug Abuse Patient Records regulations: The Federal rules restrict any use of the information to criminally investigate or prosecute any alcohol or drug abuse patient.[facility] HospitalIn the event this information is protected by the Federal Confidentiality of Alcohol and Drug Abuse Patient Records regulations: The Federal rules restrict any use of the information to criminally investigate or prosecute any alcohol or drug abuse patient.[facility] HospitalIn the event this information is protected by the Federal Confidentiality of Alcohol and Drug Abuse Patient Records regulations: The Federal rules restrict any use of the information to criminally investigate or prosecute any alcohol or drug abuse patient.[facility] HospitalIn the event this information is protected by the Federal Confidentiality of Alcohol and Drug Abuse Patient Records regulations: The Federal rules restrict any use of the information to criminally investigate or prosecute any alcohol or drug abuse patient.[facility] HospitalIn the event this information is protected by the Federal Confidentiality of Alcohol and Drug Abuse Patient Records regulations: The Federal rules restrict any use of the information to criminally investigate or prosecute any alcohol or drug abuse patient.[facility] HospitalIn the event this information is protected by the Federal Confidentiality of Alcohol and Drug Abuse Patient Records regulations: The Federal rules restrict any use of the information to criminally investigate or prosecute any alcohol or drug abuse patient.[facility] HospitalIn the event this information is protected by the Federal Confidentiality of Alcohol and Drug Abuse Patient Records regulations: The Federal rules restrict any use of the information to criminally investigate or prosecute any alcohol or drug abuse patient.[facility] HospitalIn the event this information is protected by the Federal Confidentiality of Alcohol and Drug Abuse Patient Records regulations: The Federal rules restrict any use of the information to criminally investigate or prosecute any alcohol or drug abuse patient.[facility] HospitalIn the event this information is protected by the Federal Confidentiality of Alcohol and Drug Abuse Patient Records regulations: The Federal rules restrict any use of the information to criminally investigate or prosecute any alcohol or drug abuse patient.[facility] HospitalIn the event this information is protected by the Federal Confidentiality of Alcohol and Drug Abuse Patient Records regulations: The Federal rules restrict any use of the information to criminally investigate or prosecute any alcohol or drug abuse patient.[facility] HospitalIn the event this information is protected by the Federal Confidentiality of Alcohol and Drug Abuse Patient Records regulations: The Federal rules restrict any use of the information to criminally investigate or prosecute any alcohol or drug abuse patient.[facility] HospitalIn the event this information is protected by the Federal Confidentiality of Alcohol and Drug Abuse Patient Records regulations: The Federal rules restrict any use of the information to criminally investigate or prosecute any alcohol or drug abuse patient.[facility] HospitalIn the event this information is protected by the Federal Confidentiality of Alcohol and Drug Abuse Patient Records regulations: The Federal rules restrict any use of the information to criminally investigate or prosecute any alcohol or drug abuse patient.[facility] HospitalIn the event this information is protected by the Federal Confidentiality of Alcohol and Drug Abuse Patient Records regulations: The Federal rules restrict any use of the information to criminally investigate or prosecute any alcohol or drug abuse patient.[facility] HospitalIn the event this information is protected by the Federal Confidentiality of Alcohol and Drug Abuse Patient Records regulations: The Federal rules restrict any use of the information to criminally investigate or prosecute any alcohol or drug abuse patient.[facility] HospitalIn the event this information is protected by the Federal Confidentiality of Alcohol and Drug Abuse Patient Records regulations: The Federal rules restrict any use of the information to criminally investigate or prosecute any alcohol or drug abuse patient.[facility] HospitalIn the event this information is protected by the Federal Confidentiality of Alcohol and Drug Abuse Patient Records regulations: The Federal rules restrict any use of the information to criminally investigate or prosecute any alcohol or drug abuse patient.[facility] HospitalIn the event this information is protected by the Federal Confidentiality of Alcohol and Drug Abuse Patient Records regulations: The Federal rules restrict any use of the information to criminally investigate or prosecute any alcohol or drug abuse patient.[facility] HospitalIn the event this information is protected by the Federal Confidentiality of Alcohol and Drug Abuse Patient Records regulations: The Federal rules restrict any use of the information to criminally investigate or prosecute any alcohol or drug abuse patient.[facility] HospitalIn the event this information is protected by the Federal Confidentiality of Alcohol and Drug Abuse Patient Records regulations: The Federal rules restrict any use of the information to criminally investigate or prosecute any alcohol or drug abuse patient.[facility] HospitalIn the event this information is protected by the Federal Confidentiality of Alcohol and Drug Abuse Patient Records regulations: The Federal rules restrict any use of the information to criminally investigate or prosecute any alcohol or drug abuse patient.[facility] HospitalIn the event this information is protected by the Federal Confidentiality of Alcohol and Drug Abuse Patient Records regulations: The Federal rules restrict any use of the information to criminally investigate or prosecute any alcohol or drug abuse patient.[facility] HospitalIn the event this information is protected by the Federal Confidentiality of Alcohol and Drug Abuse Patient Records regulations: The Federal rules restrict any use of the information to criminally investigate or prosecute any alcohol or drug abuse patient.[facility] Reason for Visit (unrecogniz ed section and content) Specialty Diagnoses / Procedures Referred By Genny t Referred To Contact [facility] Diagnoses Brain fog Procedures CONSULT TO SPEECH THERAPY OFFICE/OUTPATIENT [facility] 60-74 [place]UTES [place] [address] [facility] [place] [address] Referral ID Status Reason Start Date Expiration Date Visits Requested Visits Authorized [id number] Authorized Auto-Generat ed Referral 03/25/2021 03/24/2022 30 30 Reason Comments Request Outside Medical Records [facility] Reason Comments Follow Up Specialty Diagnoses / Procedures Referred By Genny t Referred To Contact Speech-Language Pathologist / SPEECH LANGUAGE PATHOLOGY Diagnoses Vocal cord dysfunction Vocal Cord Dysfunction Procedures EST HNI PATIENT Self Rafal Pandey, PhD, CCC-GUN SEALING MACHINE OPERATOR [address] [place] [address] Referral ID Status Reason Start Date Expiration Date V isits Requested Visits Authorized [id number] Authorized 06/23/2021 03/24/2022 30 30 Reason Comments Received Outside Medical [facility] Reason Comments Refill Request Reason Comments Established Patient Follow-Up Shortness of breath Specialty Diagnoses / Procedures Referred By Genny t Referred To Contact Speech-Language Pathologist / SPEECH LANGUAGE PATHOLOGY Diagnoses FOLLOW UP 2 WEEKS Procedures EST HNI PATIENT Rafal Pandey, PhD, CCC-GUN SEALING MACHINE OPERATOR [address] [id number] Rafal Pandey, PhD, [facility]-GUN SEALING MACHINE OPERATOR [address] [id number] Referral ID Status Reason Start Date Expiration Date V isits Requested Visits Authorized [id number] Authorized 03/25/2021 03/24/2022 30 30 Reason Onset Date Comments Refill Request 10/13/2021 Reason Onset Date Comments Refill Request 11/13/2021 Reason Comments Established Patient Follow-Up Reason Comments Appointment lvm for patient to c all so we can get her scheduled for her neuro testing consult Reason Comments Blurred Vision Both Eyes Without the gla sses. Reason Comments Medication Preauthorization [employer] Specialty Diagnoses / Procedures Referred By Genny ponce Referred To Contact MR IMAGING Diagnoses Multiple sclerosis (HCC) Medication monitoring encounter Procedures MRI BRAIN WO/W IVCON MRI BRAIN BRAIN STEM W/O W/CONTRAST MATERIAL Ben Farr PA-C [address] [id number] Mr Imaging Referral ID Status Reason Start Date Expiration Date V isits Requested Visits Authorized [id number] Closed Auto-Generate d Referral 05/05/2022 06/04/2022 1 1 Reason Comments New Patient Specialty Diagnoses / Procedures Referred By Genny ponce Referred To Contact Diagnoses Multiple sclerosis (HCC) Malaise and fatigue Procedures CONSULT TO SLEEP MEDICINE - ADULT OFFICE/OUTPATIENT NEW HIGH MDM 60-74 MINUTES Ben Farr PA-C [address] [place] [address] Referral ID Status Reason Start Date Expiration Date V isits Requested Visits Authorized [id number] Closed PCP Requested Referral 05/24/2022 05/24/2023 1 1 Reason Comments Patient Update Reason Onset Date Comments Refill Request 08/01/2022 Reason Onset Date Comments [facility] Neurology - Initiation Of Therapy 11/22/2022 [employer] Reason Comments Established Patient Follow-Up Reason Comments Appointment 11/30/22 - LVM to sche [facility] MRIs with FU with Sulema/Aicha in 6 months.- GL Reason Comments Disability Placard Reason Comments Lab Orders Mailed Orders Reason Onset Date Comments [facility] Neurology - Medication Refill 01/01/2023 [employer] Reason Onset Date Comments Refill Request 01/11/2023 Reason Onset Date Comments [facility] Neurology - Medication Refill 01/25/2023 [employer] Insurance Authorization 01/25/2023 WIL ureña Submitted Reason Onset Date Comments [facility] Neurology - Medication Refill 02/28/2023 [employer] Care Teams (unrecognized sec tion and content) Nuclear Control Operator Relationship Specialty Start Date End Date Felicia Omalley DO PCP - [facility] 04/26/10 Oscar Wilcox MD [address] [place], [place] [id number] Primary Staff Physician Cardiology 04/17/21 Nuclear Control Operator Relationship Specialty Start Date End Date Felicia Omalley DO PCP - [facility] 04/26/10 Oscar Wilcox MD [address] [place] [address] Primary Staff Physician Cardiology 04/17/21 Nuclear Control Operator Relationship Specialty Start Date End Date Felicia Omalley DO PCP - [facility] 04/26/10 Oscar Wilcox MD [address] [place] [address] Primary Staff Physician Cardiology 04/17/21 Nuclear Control Operator Relationship Specialty Start Date End Date Felicia Omalley DO PCP - [facility] 04/26/10 Oscar Wilcox MD [address] [place] [address] Primary Staff Physician Cardiology 04/17/21 Nuclear Control Operator Relationship Specialty Start Date End Date Felicia Omalley DO PCP - [facility] Family [facility] 04/26/10 Oscar Wilcox MD [address] [place] [address] Primary Staff Physician Cardiology 04/17/21 Nuclear Control Operator Relationship Specialty Start Date End Date Felicia Omalley DO PCP - [facility] Family Practice 04/26/10 Oscar Wilcox MD [address] [place] [address] Primary Staff Physician Cardiology 04/17/21 Nuclear Control Operator Relationship Specialty Start Date End Date Felicia Omalley DO PCP - [facility] Family Practice 04/26/10 Oscar Wilcox MD [address] [place] [address] Primary Staff Physician Cardiology 04/17/21 Nuclear Control Operator Relationship Specialty Start Date End Date Felicia Omalley DO PCP - [facility] Family Practice 04/26/10 Oscar Wilcox MD [address] [place] [address] Primary Staff Physician Cardiology 04/17/21 Nuclear Control Operator Relationship Specialty Start Date End Date Felicia Omalley DO PCP - General Family Practice 04/26/10 Oscar Wilcox MD [address] [place] [address] Primary Staff Physician Cardiology 04/17/21 Nuclear Control Operator Relationship Specialty Start Date End Date Felicia Omalley DO PCP - General Family Practice 04/26/10 Oscar Wilcox MD [address] [place] [address] Primary Staff Physician Cardiology 04/17/21 Nuclear Control Operator Relationship Specialty Start Date End Date Felicia Omalley DO PCP - [facility] Family Practice 04/26/10 Oscar Wilcox MD [address] [place] [address] Primary Staff Physician Cardiology 04/17/21 Nuclear Control Operator Relationship Specialty Start Date End Date Felicia Omalley DO PCP - General Family Medicine 04/26/10 Oscar Wilcox MD [address] [place] [address] Primary Staff Physician Cardiology 04/17/21 Nuclear Control Operator Relationship Specialty Start Date End Date Felicia Omalley DO PCP - General Family Medicine 04/26/10 Oscar Wilcox MD [address] [place] [address] Primary Staff Physician Cardiology 04/17/21 Nuclear Control Operator Relationship Specialty Start Date End Date Felicia Omalley DO PCP - General Family Medicine 04/26/10 Oscar Wilcox MD [address] [place] [address] Primary Staff Physician Cardiology 04/17/21 Nuclear Control Operator Relationship Specialty Start Date End Date Felicia Omalley DO PCP - General Family Medicine 04/26/10 Oscar Wilcox MD [address] [place] [address] Primary Staff Physician Cardiology 04/17/21 Nuclear Control Operator Relationship Specialty Start Date End Date Felicia Omalley DO PCP - General Family Medicine 04/26/10 Oscar Wilcox MD [address] [place] [address] Primary Staff Physician Cardiology 04/17/21 Nuclear Control Operator Relationship Specialty Start Date End Date Felicia Omalley DO PCP - General Family Medicine 04/26/10 Oscar Wilcox MD [address] [place] [address] Primary Staff Physician Cardiology 04/17/21 Nuclear Control Operator Relationship Specialty Start Date End Date Felicia Omalley DO PCP - General Family Medicine 04/26/10 Oscar Wilcox MD [address] [place] [address] Primary Staff Physician Cardiology 04/17/21 Nuclear Control Operator Relationship Specialty Start Date End Date Felicia Omalley DO PCP - General Family Medicine 04/26/10 Oscar Wilcox MD [address] [place] [address] Primary Staff Physician Cardiology 04/17/21 Nuclear Control Operator Relationship Specialty Start Date End Date Felicia Omalley DO PCP - General Family Medicine 04/26/10 Oscar Wilcox MD [address] [place] [address] Primary Staff Physician Cardiology 04/17/21 Nuclear Control Operator Relationship Specialty Start Date End Date Felicia Omalley DO PCP - General Family Medicine 04/26/10 Oscar Wilcox MD [address] [place] [address] Primary Staff Physician Cardiology 04/17/21 Nuclear Control Operator Relationship Specialty Start Date End Date Felicia Omalley DO PCP - General Family Medicine 04/26/10 Oscar Wilcox MD [address] [place] [address] Primary Staff Physician Cardiology 04/17/21 Nuclear Control Operator Relationship Specialty Start Date End Date Felicia Omalley DO PCP - General Family Medicine 04/26/10 Oscar Wilcox MD [address] [place] [address] Primary Staff Physician Cardiology 04/17/21 Nuclear Control Operator Relationship Specialty Start Date End Date Felicia Omalley DO PCP - General Family Medicine 04/26/10 Oscar Wilcox MD [address] [place] [address] Primary Staff Physician Cardiology 04/17/21 Nuclear Control Operator Relationship Specialty Start Date End Date Felicia Omalley DO PCP - General Family Medicine 04/26/10 Oscar Wilcox MD [address] [place] [address] Primary Staff Physician Cardiology 04/17/21 Nuclear Control Operator Relationship Specialty Start Date End Date Felicia Omalley DO PCP - General Family Medicine 04/26/10 Oscar Wilcox MD [address] [place] [address] Primary Staff Physician Cardiology 04/17/21 Nuclear Control Operator Relationship Specialty Start Date End Date Felicia Omalley DO PCP - General Family Medicine 04/26/10 Oscar Wilcox MD [address] [place] [address] Primary Staff Physician Cardiology 04/17/21 Nuclear Control Operator Relationship Specialty Start Date End Date Felicia Omalley DO PCP - General Family Medicine 04/26/10 Oscar Wilcox MD [address] [place] [address] Primary Staff Physician Cardiology 04/17/21 Nuclear Control Operator Relationship Specialty Start Date End Date Felicia Omalley DO PCP - General Family Medicine 04/26/10 Oscar Wilcox MD [address] [place] [address] Primary Staff Physician Cardiology 04/17/21 Nuclear Control Operator Relationship Specialty Start Date End Date Felicia Omalley DO PCP - General Family Medicine 04/26/10 Oscar Wilcox MD [address] [place] [address] Primary Staff Physician Cardiology 04/17/21 Nuclear Control Operator Relationship Specialty Start Date End Date Felicia Omalley DO PCP - General Family Medicine 04/26/10 Oscar Wilcox MD [address] [place] [address] Primary Staff Physician Cardiology 04/17/21 Nuclear Control Operator Relationship Specialty Start Date End Date Felicia Omalley DO PCP - General Family Medicine 04/26/10 Oscar Wilcox MD [address] [place] [address] Primary Staff Physician Cardiology 04/17/21 Nuclear Control Operator Relationship Specialty Start Date End Date Felicia Omalley DO PCP - General Family Medicine 04/26/10 Oscar Wilcox MD [address] [place] [address] Primary Staff Physician Cardiology 04/17/21 Nuclear Control Operator Relationship Specialty Start Date End Date Felicia Omalley DO PCP - General Family Medicine 04/26/10 Oscar Wilcox MD [address] [place] [address] Primary Staff Physician Cardiology 04/17/21 Nuclear Control Operator Relationship Specialty Start Date End Date Felicia Omalley DO PCP - General Family Medicine 04/26/10 Oscar Wilcox MD [address] [place] [address] Primary Staff Physician Cardiology 04/17/21 Nuclear Control Operator Relationship Specialty Start Date End Date Felicia Omalley DO PCP - General Family Medicine 04/26/10 Oscar Wilcox MD [address] [place] [address] Primary Staff Physician Cardiology 04/17/21 Nuclear Control Operator Relationship Specialty Start Date End Date Felicia Omalley DO PCP - General Family Medicine 04/26/10 Oscar Wilcox MD [address] [place] [address] Primary Staff Physician Cardiology 04/17/21 FOR RECORDS PERTAINING TO PATIENTS WHO ARE OR HAVE BEEN ENROLLED IN A CHEMICAL DEPENDENCY/SUBSTANCEABUSE PROGRAM, SOME INFORMATION MAY BE OMITTED. This clinical summary was aggregated from multiple sources. Caution should be exercised in using it in the provision of clinical care. This summary normalizes information from multiple sources, and as a consequence, information in this document may materially change the coding, format and clinical context of patient data. In addition, data may be omitted in some cases. CLINICAL DECISIONS SHOULD BE BASED ON THE PRIMARY CLINICAL RECORDS. [facility] [employer] [facility] provides no warranty or guarantee of the accuracy or completeness of information in this document.
== END | disposition home or self-care (01) ==
LOC: LABSPEC 11:25
PROVIDERS: PCP Family Medicine; Referring Provider Nurse Practitioner Women's Health; Visit Provider Nurse Practitioner Women's Health
DX: N94.9 Unspecified condition associated with female genital organs and menstrual cycle (principal)
CPT/HCPCS: 87070; 87205

== ENCOUNTER → 2024-02-25 | Outpatient (CLI) | payer MEDICAID, SELFPAY ==
--- NOTE | 2024-02-25 09:07 | BI_ITS ---
MAMMOGRAPHY - BILATERAL SCREENING REASON FOR EXAM: Female, 53 years old. Routine annual screening examination. PERTINENT HISTORY: Non-contributory. TECHNIQUE: Digital bilateral breast anca (3D mammographic acquisition) in the CC and MLO projections. 2-D mediolateral oblique (MLO) and craniocaudad (CC) views of both breasts were obtained. CAD: Full Field Digital Mammography with Computer Added Detection was performed. COMPARISON: Comparison is made with prior study dated February 19, 2023 and February 12, 2022. FINDINGS: Breast Composition: The breasts are extremely dense, which lowers the sensitivity of mammography. There are no dominant masses or suspicious calcifications. No other significant abnormalities are identified. There has been no significant change since the prior study. BI/SCRN MAMM (CAD)W/ANCA BILAT IMPRESSION: Stable bilateral screening mammogram. Yearly follow-up mammogram recommended. (A) ASSESSMENT CATEGORY: BIRADS Category 1: Negative. A letter regarding these results will be sent to the patient by the facility within 30 days. Approximately 10% of breast cancers are not detected by mammography. A normal mammogram should not delay biopsy of a clinically suspicious abnormality. [id number] Electronically Signed: Hao Marti MD at 10:34 EST ,
== END | disposition home or self-care (01) ==
PROVIDERS: PCP Family Medicine; Referring Provider Nurse Practitioner Women's Health; Visit Provider Nurse Practitioner Women's Health
DX: Z12.31 Encounter for screening mammogram for malignant neoplasm of breast (principal)
CPT/HCPCS: 77063; 77067

== ENCOUNTER → 2024-03-20 | Outpatient (CLI) | payer MEDICAID, SELFPAY ==
[2024-03-20 10:34] LABS: Bacteria 0 SEEN /hpf (None Seen); Mucous, Urine 0 SEEN /hpf (<or=2+); Red Blood Cells-Urine 0 SEEN /hpf (0-5)
[2024-03-20 11:09] LABS: Color, Urine Yellow (Yellow); Glucose, Dipstick Normal (Normal); Ketone-Dipstick Negative (Negative); Leukocyte Esterase-Dipstick 25 /ul (Negative); Nitrite-Dipstick Negative (Negative); Occult Blood-Urine 10 /ul (Negative); Protein-Dipstick Negative (Negative); Specific Gravity, Urine 1.015 (1.002-1.030); Urine Bilirubin Dipstick Negative (Negative); Urine Clarity Clear (Clear); Urine Urobilinogen Normal (Normal)
[2024-03-20 11:14] LABS: Squamous Epithelial Cells - UA 0-5 SEEN /hpf (5-10); White Blood Cells 0-5 SEEN /hpf (0-5)
== END | disposition home or self-care (01) ==
LOC: LAB 10:29
PROVIDERS: PCP Family Medicine; Referring Provider Physician Assistant; Visit Provider Physician Assistant
DX: R35.0 Frequency of micturition (principal)
CPT/HCPCS: 81001; 87086

== ENCOUNTER → 2024-04-01 | Outpatient (CLI) | payer MEDICAID, SELFPAY ==
[2024-04-07 17:06] LABS: HPV APTIMA, High Risk Negative (Negative)
== END | disposition home or self-care (01) ==
LOC: LABSPEC 16:14
PROVIDERS: PCP Family Medicine; Referring Provider Nurse Practitioner Family; Visit Provider Nurse Practitioner Family
DX: Z12.4 Encounter for screening for malignant neoplasm of cervix (principal)
CPT/HCPCS: 87624; 88175; G0145

== ENCOUNTER → 2024-04-14 | Outpatient (CLI) | payer MEDICAID, SELFPAY ==
--- NOTE | 2024-04-14 16:46 | US_ITS ---
INDICATION: pelvic pain EXAMINATION: Ultrasound US Pelvis Non OB Complete With Transvaginal Imaging TECHNIQUE: Transabdominal and transvaginal pelvic ultrasound was performed. Grayscale, and color flow Doppler evaluation of the adnexa. COMPARISON: Prior study dated: 02/22/2022 FINDINGS: UTERUS: Retroverted. The uterus measures 4.6 x 3.9 x 2.6 cm. There is no uterine mass. The endometrial stripe measures 0.1 cm in AP diameter which is within normal limits. RIGHT OVARY: 2.1 x 2.3 x 1.2 cm. Non-enlarged, normal echogenicity. Normal Doppler vascularity. Spectral waveforms not obtained. LEFT OVARY: Cannot visualize due to bowel gas. FREE FLUID: None. US/Pelvic w/ Transvaginal IMPRESSION: Retroverted uterus. No pelvic mass. Nonvisualization of the left ovary due to bowel gas. Electronically Signed: Parish Warren MD at 13:41 EST ,
== END | disposition home or self-care (01) ==
LOC: US 16:45
PROVIDERS: PCP Family Medicine; Referring Provider Nurse Practitioner Family; Visit Provider Nurse Practitioner Family
DX: R10.2 Pelvic and perineal pain (principal)
CPT/HCPCS: 76830; 76856

== ENCOUNTER → 2024-06-09 | Outpatient (CLI) | payer MEDICAID, SELFPAY ==
[2024-06-09 16:33] LABS: Absolute Lymphocyte Count 0.94 X10^3/uL (0.83-4.51); Absolute Neutrophil Count 3.1 X10^3/uL (2.0-7.7); Basophil# 0.03 X10^3/uL; Basophil% 0.6 % (0-1); Eosinophil# 0.15 X10^3/uL; Eosinophils% 3.2 % (0-5); Hematocrit 37.4 % (37-47); Hemoglobin 12.6 g/dL (12.0-15.0); Lymphocyte # 0.94 X10^3/ul (0.83-4.51); Lymphocyte % 20.3 % (19-41); Mean Corp Hgb Conc 33.7 g/dL (32-36); Mean Corpuscular Hgb 30.8 pg (27.0-32.0); Mean Corpuscular Volume 91.4 fL (81-99); Mean Platelet Vol. 10.4 fl (6.2-12.0); Monocyte# 0.37 X10^3/uL; NRBC Flagged by Analyzer 0 % (0-5); Neutrophil # 3.14 X10^3/uL (2.7-7.7); Neutrophil % 67.7 % (47-70); Platelet Count 246 K/mm3 (150-450); RBC Distribution Width CV 13.2 % (11.6-14.6); RBC Distribution Width SD 44.2 fl (35.1-43.9); Red Blood Count 4.09 M/mm3 (4.2-5.4); White Blood Count 4.6 K/mm3 (4.4-11.0)
[2024-06-09 16:53] LABS: Magnesium 2.3 mg/dL (1.5-2.2)
[2024-06-09 17:09] LABS: AST(SGOT) 24 U/L (<=31); Alanine Aminotransfer ALT/SGPT 40 U/L (<=34); Albumin, Serum 4.4 g/dL (3.5-5.0); Alkaline Phosphatase 95 U/L (35-104); Anion Gap 8 (5-15); BUN 15 mg/dL (4-19); BUN/Creat Ratio 25.5 RATIO (10-20); Calcium,Total 9.5 mg/dL (7.6-11.0); Carbon Dioxide 28.1 mmol/L (21.0-32.0); Chloride 102 mmol/L (98-108); Creatinine, Serum 0.58 mg/dL (0.70-1.20); EST Glomerular Filtration Rate 109 (>60); Globulin 2.2 g/dL (2.2-4.2); Glucose 114 mg/dL (70-99); Protein, Total 6.6 g/dL (5.9-8.4); Sodium Level 138 mmol/L (133-145); Total Bilirubin < 0.15 mg/dL (0.00-1.30)
== END | disposition home or self-care (01) ==
LOC: BIMLAB 15:19
PROVIDERS: PCP Family Medicine; Referring Provider Family Medicine; Visit Provider Family Medicine
DX: R25.2 Cramp and spasm (principal)
CPT/HCPCS: 36415; 80053; 83735; 85025

== ENCOUNTER → 2024-10-20 | Outpatient (CLI) | payer MEDICAID, SELFPAY | END | disposition home or self-care (01) | LOC: LABSPEC 10-21 07:12 | PROVIDERS: PCP Family Medicine; Visit Provider Nurse Practitioner | DX: R30.9 Painful micturition, unspecified (principal) | CPT/HCPCS: 87077; 87086; 87088 ==

== ENCOUNTER → 2025-03-02 | Outpatient (CLI) | payer MEDICAID, SELFPAY ==
--- NOTE | 2025-03-02 16:45 | BI_ITS ---
EXAM: SCRN MAMM (CAD)W/ANCA BILAT DATE: 03/02/2025 CLINICAL HISTORY: F, Age 54 y/o , SCREEN FOR BREAST CANCER No family history. TECHNIQUE: Procedure Code: [id number] Modality: MG Procedure: SCRN MAMM (CAD)W/ANCA BILAT COMPARISON: Prior exam(s) dated February 25, 2024.. FINDINGS: TISSUE DENSITY: The breasts are extremely dense, which lowers the sensitivity of mammography. Bilateral Breast Mammographic Findings: No significant masses, calcifications or other abnormalities are identified. No suspicious masses, areas of developing architectural distortion, or suspicious calcifications. There has been no significant interval change. BI/SCRN MAMM (CAD)W/ANCA BILAT IMPRESSION: Stable bilateral screening mammogram. OVERALL FINAL ASSESSMENT BI-RADS 1: NEGATIVE. RECOMMENDATION: Routine annual follow-up in 1 Year Additional Recommendation none A letter with findings and recommendations will be mailed to the patient. Reading Location: [address] [place] [address]
== END | disposition home or self-care (01) ==
PROVIDERS: PCP Family Medicine; Referring Provider Nurse Practitioner Women's Health; Visit Provider Nurse Practitioner Women's Health
DX: Z12.31 Encounter for screening mammogram for malignant neoplasm of breast (principal)
CPT/HCPCS: 77063; 77067